=== PATIENT | female | born 1950 | race Caucasian/White ===

== ENCOUNTER 2019-04-09 00:09 | Day surgery (SDC) | payer MEDICARE, MEDICAID, SELFPAY ==
[2019-04-02 13:45] VITALS: BMI 30.4
--- NOTE | 2019-04-07 13:10 | WPDANESEPP ---
Anes - Eval Pre Procedure Procedure: Operation Date: 04/09/19 07:30 Proposed Procedures p Esophagogastroduodenoscopy - Laci Nixon MD Date/Time: 04/07/19 13:10 Surgeon: Chloe Nixon MD Pre Op Diagnosis: Tiffany Patient Data Age: 69 Gender: F Height: 5 ft 3 in Weight: 78 kg Allergies Allergy/AdvReac Type Severity Reaction Status Date / Time estrogens, conjugated Allergy Mild Rash Verified 04/02/19 13:56 [From Prempro] medroxyprogesterone Allergy Mild Rash Verified 04/02/19 13:56 [From Prempro] Home Medications Medication Instructions Recorded Confirmed Type insulin glargine 100 unit/mL (3 See Rx Instructions .ROUTE .COMPLEX 01/15/19 04/02/19 History mL) subcutaneous pen insulin lispro 100 unit/mL See Rx Instructions SUB-Q .COMPLEX 01/15/19 04/02/19 History subcutaneous pen bethanechol chloride 25 mg tablet 25 mg PO BID tablet 01/24/19 04/02/19 History lisinopril 20 mg tablet 20 mg PO DAILY 01/24/19 04/02/19 History mirtazapine 15 mg tablet 15 mg PO DAILY 01/24/19 04/02/19 History omeprazole 40 mg capsule,delayed 40 mg PO BID 01/24/19 04/02/19 History release pravastatin 20 mg tablet 20 mg PO DAILY 01/24/19 04/02/19 History ergocalciferol (vitamin D2) 2,500 2,500 unit PO DAILY 02/01/19 04/02/19 History unit capsule levothyroxine 88 mcg tablet 88 mcg PO DAILY 02/01/19 04/02/19 History alprazolam 0.5 mg tablet 0.5 mg PO DAILY PRN #30 tablet 03/28/19 04/02/19 Rx EC11/14/18 SR RBBB, rate 81 : patient denies Patient hx anesthesia problems: none Family hx anesthesia problems: none Prior Surgeries: cholecystectomy PMFSH Past Medical History Medical History (Updated 04/07/19 @ 13:12 by Fanta Chavira CRNA) Anxiety Chronic GERD CVA (cerebral vascular accident) Depression Diabetes 1.5, managed as type 1 Diabetic neuropathy Hyperlipidemia Hypertension Hypothyroid Macular degeneration Obesity (BMI 30-39.9) Surgical History Surgical History (Updated 04/07/19 @ 13:05 by Fanta Chavira CRNA) Hx of cholecystectomy Social History Social History Smoking status: Never smoker Second hand tobacco smoke exposure: No Alcohol intake: never Substance use: never Exam Day of Procedure 04/07/19 13:10
[2019-04-09 06:41] VITALS: BP 132/60; PULSE 83; RESP 18; TEMP 37.2; O2SAT 99
--- NOTE | 2019-04-09 06:51 | WPDANESEFPP ---
Anes - Eval Final PreProcedure Day of Procedure 04/09/19 06:51 Patient weight: obese Heart: regular rate and rhythm Lungs: clear to auscultation Airway: Mallampati scale class II Neurological: alert and oriented ASA classification: III Emergent: no Anesthetic plan: proceed Anesthesia type and monitoring: general GIVS and standard monitoring Informed Consent: The patient's anesthetic plan and its attendant risks and benefits were discussed with the patient/family/POA. Questions were solicited and answers provided to the satisfaction of the patient/family/POA.
[2019-04-09] MEDS: LACTATED RINGERS 1,000 ML 150 ML IV CONT (06:52)
[2019-04-09 06:56] LABS: Glucose Point of Care 235 (65-105)
--- NOTE | 2019-04-09 06:57 | PM.HPGS ---
History of Present Illness History of Present Illness Consent: Risks, benefits, and alternatives have been discussed and questions answered. Patient agrees to proceed with procedure. Chief complaint: Tiffany Narrative: Kyle Sanches is a 69 year old female with chronic acid reflux. Her last EGD 2 years ago she had persistent erosions in the lower esophagus. She states that after meal she feels full and bloated as though her food is not digesting. Denies dysphagia or weight loss. [facility] Past Medical History Medical History (Updated 04/09/19 @ 07:05 by Laci Nixon MD) Anxiety Chronic GERD CVA (cerebral vascular accident) Depression Diabetes 1.5, managed as type 1 Diabetic neuropathy Hyperlipidemia Hypertension Hypothyroid Macular degeneration Obesity (BMI 30-39.9) Surgical History Surgical History Hx of cholecystectomy Family History Family History Father Family history of elevated blood lipids Hypertension Family history of malignant neoplasm of kidney Family history of lung cancer Mother Family history of elevated blood lipids Sibling Family history of elevated blood lipids Family history of thyroid disease Hypertension Family history of diabetes mellitus in first degree relative Social History Social History Smoking status: Never smoker Second hand tobacco smoke exposure: No Alcohol intake: never Substance use: never Meds Home Medications and Allergies Home Medications Medication Instructions Recorded Confirmed Type insulin glargine 100 unit/mL (3 See Rx Instructions .ROUTE .COMPLEX 01/15/19 04/02/19 History mL) subcutaneous pen insulin lispro 100 unit/mL See Rx Instructions SUB-Q .COMPLEX 01/15/19 04/02/19 History subcutaneous pen bethanechol chloride 25 mg tablet 25 mg PO BID tablet 01/24/19 04/02/19 History lisinopril 20 mg tablet 20 mg PO DAILY 01/24/19 04/02/19 History mirtazapine 15 mg tablet 15 mg PO DAILY 01/24/19 04/02/19 History omeprazole 40 mg capsule,delayed 40 mg PO BID 01/24/19 04/02/19 History release pravastatin 20 mg tablet 20 mg PO DAILY 01/24/19 04/02/19 History ergocalciferol (vitamin D2) 2,500 2,500 unit PO DAILY 02/01/19 04/02/19 History unit capsule levothyroxine 88 mcg tablet 88 mcg PO DAILY 02/01/19 04/02/19 History alprazolam 0.5 mg tablet 0.5 mg PO DAILY PRN #30 tablet 03/28/19 04/09/19 Rx Allergies Allergy/AdvReac Type Severity Reaction Status Date / Time estrogens, conjugated Allergy Mild Rash Verified 04/02/19 13:56 [From Prempro] medroxyprogesterone Allergy Mild Rash Verified 04/02/19 13:56 [From Prempro] Vital Signs Vital Signs - 24 hr 04/09/19 06:41 Temperature 37.2 C Pulse Rate 83 Respiratory Rate 18 Blood Pressure 132/60 Pulse Oximetry 99 Exam Const: General: alert Orientation/consciousness: patient oriented x3 Resp: Auscultation: clear to auscultation bilaterally Cardio: Rhythm: regular rhythm GI: GI Palp: Yes Soft to palpation and No Tenderness to palpation present (GI) Neuro: General: patient oriented x3 Assessment and Plan Assessment and plan (1) GERD (gastroesophageal reflux disease): Code(s): K21.9 - Gastro-esophageal reflux disease without esophagitis Status: Acute Assessment and Plan: EGD with possible biopsy or dilatation or cautery.
[2019-04-09 07:37] VITALS: BP 117/64; PULSE 86; RESP 24; O2SAT 98
[2019-04-09 07:45] LABS: Glucose Point of Care 210 (65-105)
[2019-04-09 07:47] VITALS: BP 123/65; PULSE 77; RESP 22; O2SAT 97
[2019-04-09 07:57] VITALS: BP 134/79; PULSE 73; RESP 21; O2SAT 99
== END 2019-04-09 08:25 | disposition home or self-care (01) ==
PROVIDERS: PCP Internal Medicine; Visit Provider Internal Medicine Gastroenterology
PROC: 0DJ08ZZ Inspection of Upper Intestinal Tract, Via Natural or Artificial Opening Endoscopic (ICD-10-PCS; CPT 43235; principal; 2019-04-09 07:30)
DX: K21.9 Gastro-esophageal reflux disease without esophagitis (principal); K31.84 Gastroparesis; I10 Essential (primary) hypertension; E78.5 Hyperlipidemia, unspecified; E13.40 Other specified diabetes mellitus with diabetic neuropathy, unspecified; E03.9 Hypothyroidism, unspecified; F41.8 Other specified anxiety disorders; H35.30 Unspecified macular degeneration; Z86.73 Personal history of transient ischemic attack (TIA), and cerebral infarction without residual deficits; Z79.4 Long term (current) use of insulin; E66.9 Obesity, unspecified; Z68.30 Body mass index [BMI] 30.0-30.9, adult
CPT/HCPCS: 43235; J2704; J7120

== ENCOUNTER 2019-10-16 07:31 | Outpatient (CLI) | payer MEDICARE, MEDICAID, SELFPAY ==
[2019-10-16 08:11] LABS: Hematocrit 39.8 % (37.0-47.0); Hemoglobin 13.2 g/dL (12.0-15.0); Mean Corpuscular HGB Conc 33.2 g/dl (32-36); Mean Corpuscular Hemoglobin 29.7 pg (26-34); Mean Corpuscular Volume 89.4 fl (80-100); Mean Platelet Volume 10.4 fl (7.4-10.4); Platelet Count Result 250 k/mm3 (150-375); Red Blood Count 4.45 M/mm3 (4.2-5.4); Red Cell Distribution Width 12.9 % (11.5-14.5); White Blood Count 4.8 K/mm3 (4.5-10.0)
[2019-10-16 08:26] LABS: Alanine Aminotransferase 32 U/L (4-35); Albumin Level 4.1 g/dL (3.5-5.1); Alkaline Phosphatase 87 U/L (38-126); Anion Gap 6 mmol/L (8-16); Aspartate Amino Transferase 34 U/L (14-36); Bilirubin,Total 0.4 mg/dL (0.2-1.3); Blood Urea Nitrogen 16 mg/dL (7-17); Calcium 9.1 mg/dL (8.4-10.2); Carbon Dioxide 30 mmol/L (22-30); Chloride 97 mmol/L (98-107); Cholesterol 234 mg/dL (0-200); Estimated Glomerular Filt Rate > 60; Glucose 241 mg/dL (65-105); Potassium 4.3 mmol/L (3.4-5.0); Sodium 133 mmol/L (137-145); Triglycerides 57 mg/dL (<150)
[2019-10-16 08:33] LABS: HDL Direct > 110 mg/dL
[2019-10-16 08:38] LABS: LDL Cholesterol Direct 89 mg/dL
[2019-10-16 08:56] LABS: Vitamin D 25 Hydroxy 31.3 ng/mL
== END 2019-10-16 07:32 | disposition home or self-care (01) ==
PROVIDERS: PCP Physician Assistant; Referring Provider Physician Assistant; Visit Provider Internal Medicine Endocrinology, Diabetes & Metabolism
DX: E03.9 Hypothyroidism, unspecified (principal); E10.9 Type 1 diabetes mellitus without complications; M81.0 Age-related osteoporosis without current pathological fracture; E04.9 Nontoxic goiter, unspecified; R53.83 Other fatigue
CPT/HCPCS: 36415; 80053; 80061; 82306; 84439; 84443; 84481; 85027

== ENCOUNTER 2020-03-06 16:20 | Outpatient (CLI) | payer MEDICARE, MEDICAID, SELFPAY ==
--- NOTE | ~2020-03-06 | MM_ITS ---
EXAMINATION: MM screening chiara BI w hiram HISTORY: Screening mammogram TECHNIQUE: Craniocaudal and mediolateral oblique 3-D tomosynthesis images were obtained and synthetic 2-D images were generated. CAD analysis was submitted and interpreted. COMPARISON: 08/09/2018 bilateral digital screening mammogram 09/13/2016 and 02/27/2016 diagnostic left digital mammogram and limited left breast ultrasound examina tions 02/18/2016, 02/13/2015 bilateral digital screening mammogram examinations BREAST PARENCHYMAL COMPOSITION: There are scattered areas of fibroglandular density. FINDINGS: Occasional benign calcifications. There is no evidence of suspicious mass, calcification, o r architectural distortion to suggest malignancy in either breast. There has been no suspicious inter ora change. IMPRESSION: 1. No mammographic evidence of malignancy. 2. Recommend routine screening mammography in one year. BI-RADS Category 2: Benign finding(s). Reviewed, dictated and finalized at location B. [facility] [employer]
== END 2020-03-06 16:21 | disposition home or self-care (01) ==
PROVIDERS: PCP Internal Medicine; Visit Provider Obstetrics & Gynecology
DX: Z12.31 Encounter for screening mammogram for malignant neoplasm of breast (principal)
CPT/HCPCS: 77063; 77067

== ENCOUNTER 2020-03-19 11:14 | Outpatient (CLI) | payer MEDICARE, MEDICAID, SELFPAY ==
[2020-03-19 11:59] LABS: Anion Gap 0 mmol/L (8-16); Blood Urea Nitrogen 17 mg/dL (7-17); Calcium 9.3 mg/dL (8.4-10.2); Carbon Dioxide 33 mmol/L (22-30); Chloride 101 mmol/L (98-107); Estimated Glomerular Filt Rate > 60; Glucose 139 mg/dL (65-105); Potassium 4.4 mmol/L (3.4-5.0); Sodium 134 mmol/L (137-145)
[2020-03-19 12:22] LABS: Creatinine Urine 171.5 mg/dL
[2020-03-19 12:27] LABS: MALB Creatinine Ratio 5.3 mg/g (0-30); Microalbumin Urine Random 9.1 mg/L (0-16.7)
[2020-03-19 12:30] LABS: Total Triiodothyronine (T3) 0.68 NG/ML (0.97-1.69)
[2020-03-19 12:39] LABS: Free T4 Free Thyroxine 1.04 ng/mL (0.78-2.19); Vitamin D 25 Hydroxy 33.7 ng/mL
== END 2020-03-19 11:15 | disposition home or self-care (01) ==
LOC: ANHLAB 11:16
PROVIDERS: Family Provider Internal Medicine; PCP Internal Medicine; Visit Provider Internal Medicine Endocrinology, Diabetes & Metabolism
DX: E10.65 Type 1 diabetes mellitus with hyperglycemia (principal); E10.649 Type 1 diabetes mellitus with hypoglycemia without coma; M81.0 Age-related osteoporosis without current pathological fracture; E03.9 Hypothyroidism, unspecified
CPT/HCPCS: 36415; 80048; 82043; 82306; 84439; 84443; 84480

== ENCOUNTER 2020-04-21 11:11 | Outpatient (CLI) | payer MEDICARE, MEDICAID, SELFPAY ==
[2020-04-21 12:22] LABS: Free T4 Free Thyroxine 1.31 ng/mL (0.78-2.19)
== END 2020-04-21 11:12 | disposition home or self-care (01) ==
PROVIDERS: PCP Internal Medicine; Visit Provider Internal Medicine Endocrinology, Diabetes & Metabolism
DX: E03.9 Hypothyroidism, unspecified (principal)
CPT/HCPCS: 36415; 84439; 84443

== ENCOUNTER 2020-04-25 12:16 | Outpatient (CLI) | payer MEDICARE, MEDICAID, SELFPAY | END 2020-04-25 12:17 | disposition home or self-care (01) | PROVIDERS: PCP Internal Medicine; Visit Provider Physician Assistant | DX: R35.0 Frequency of micturition (principal) | CPT/HCPCS: 87086 ==

== ENCOUNTER 2020-05-08 08:11 | Outpatient (CLI) | payer MEDICARE, MEDICAID, SELFPAY ==
--- NOTE | ~2020-05-08 | XR_ITS ---
EXAMINATION: XR barium swallow modified DATE: 05/08/2020 09:09 INDICATION: Dysphagia, unspecified TECHNIQUE: Modified barium esophagram was performed by myself to administered fluoroscopy, in conjun ction with speech pathologist who administered barium in varying consistencies as per speech patholog ist documentation. This was recorded on tape. A single fluoroscopic spot image was recorded. The DAP for this procedure was 2.314 Gycm2. Fluoroscopy exposure time was 2.8 minutes. FINDINGS: Oral stage: Adequate function. Pharyngeal phase: Adequate function. Laryngeal penetration: None. Aspiration: None. Laryngeal sensitivity: Present. IMPRESSION: Normal modified esophagram. Please refer to speech pathologist findings and specific feed ing recommendations. Reviewed, dictated and finalized at location A. [employer] IMPRESSION: Normal modified esophagram. Please refer to speech pathologist find ings and specific feeding recommendations.
--- NOTE | 2020-05-08 16:34 | STOPEVAL ---
MODIFIED BARIUM SWALLOW EVALUATION: Thank you for referring Kyle Sanches to [facility].? Attending Provider: Mikey Ames PA-C/Dr Layton fax # [phone] Referring Provider: * Outpatient Evaluation Outpatient Past Medical History Neurological History Hx Cerebrovascular Accident (CVA) Yes Cardiovascular History Hx Hypercholesterolemia Yes Hx Hypertension Yes Respiratory History Hx Respiratory Disorders No Significant History Gastrointestinal History Hx Cholecystectomy Yes Hx Gastroesophageal Reflux Disease Yes Genitourinary History Hx Other Genitourinary Disorders Yes: frequency Musculoskeletal History Hx Orthopedic Surgery Yes Hematological History Hx Hematological Disorders No Significant History Endocrine History Hx Diabetes Yes Hx Hypothyroidism Yes HEENT History Hx Macular Degeneration Yes Integumentary History Hx Skin Disorders No Significant History Reproductive History Hx Post Menopausal Yes Psychosocial History Hx Anxiety Yes Hx Depression Yes Pain History History of Any Previous or Ongoing No Significant History Instance of Pain Anesthesia History Hx Anesthesia Reactions No Significant History Prior Level of Function Prior Swallow Level Prior Intake Method Oral Prior Diet Regular (Level 7 Diet) Prior Liquid Consistency Thin (Level 0 Diet) Prior Cognition/Communication Prior Communication Level No Impairment Prior Cognitive Function Able to Function Independently Pain Assessment Timing of Pain Assessment Timing of Pain Assessment Assessment Self Report Self Report Pain Level 0 Pain Score Pain Score 0: Self Report Modified Barium Swallow Evaluation Recent Swallowing History Reports Dysphagia Yes: difficulty with pills; & food build up in mouth History of Dysphagia No Other Related History reports having had 4 TIA's, last one was approximately 3 years ago History of Pneumonia No Reported Difficult Consistencies Pills,Solids Intake Method Prior to Swallow Oral Evaluation Diet Prior to Swallow Evaluation Regular, Level 7 Liquid Consistency Prior to Swallow Thin (0) Evaluation Dentition Comments reports having periodontal disease; missing teeth Consistency Barium Pill Uncontrolled 2 Other Amount whole pill taken from a cup Oral Preparatory Symptoms Within Functional Limits Oral Phase Symptoms Within Functional Limits Pharyngeal Phase Symptoms Within Functional Limits Severity of Vallecular Residue None - 0% No Residue Severity of Pyriform Sinus Re
== END 2020-05-08 08:12 | disposition home or self-care (01) ==
LOC: ANHIMG 08:16
PROVIDERS: PCP Internal Medicine; Visit Provider Physician Assistant
DX: R13.10 Dysphagia, unspecified (principal)
CPT/HCPCS: 92611

== ENCOUNTER 2020-06-10 10:13 | Outpatient (CLI) | payer MEDICARE, SELFPAY ==
[2020-06-10 11:34] LABS: Free T4 Free Thyroxine 1.31 ng/mL (0.78-2.19)
== END 2020-06-10 10:14 | disposition home or self-care (01) ==
PROVIDERS: PCP Physician Assistant; Visit Provider Internal Medicine Endocrinology, Diabetes & Metabolism
DX: E03.9 Hypothyroidism, unspecified (principal)
CPT/HCPCS: 36415; 84439; 84443

== ENCOUNTER → 2020-07-08 01:36 | Outpatient (CLI) | payer MEDICARE, SELFPAY ==
[2020-07-08 18:55] LABS: SARS-CoV-2 RNA PCR Negative
== END ==
PROVIDERS: PCP Physician Assistant; Visit Provider Internal Medicine Gastroenterology
DX: Z01.812 Encounter for preprocedural laboratory examination (principal); Z20.822 Contact with and (suspected) exposure to COVID-19
CPT/HCPCS: C9803; U0003; U0005

== ENCOUNTER 2020-07-11 05:39 | Day surgery (SDC) | payer MEDICARE, MEDICAID, SELFPAY ==
[2020-07-01 13:11] VITALS: BMI 34.3
[2020-07-11 10:52] VITALS: BP 137/68; PULSE 76; RESP 18; TEMP 36.3; O2SAT 96; BMI 34.5
[2020-07-11] MEDS: LACTATED RINGERS 1,000 ML 150 ML IV CONT (10:58)
--- NOTE | 2020-07-11 11:02 | WPDANESEPPF ---
Anes - Initial Pre Proc Eval Procedure: Operation Date: 07/11/20 12:00 Proposed Procedures p Esophagogastroduodenoscopy - Kermit Dean MD Date/Time: 07/11/20 11:02 Surgeon: Kermit Dean MD Pre Op Diagnosis: dysphagia Patient Data Age: 70 Gender: F Height: 5 ft 3 in Weight: 88.5 kg Last Vital Signs Temp 97.3 F L 07/11/20 10:52 Pulse 76 07/11/20 10:52 Resp 18 07/11/20 10:52 BP 137/68 07/11/20 10:52 Pulse Ox 96 07/11/20 10:52 Allergies Allergy/AdvReac Type Severity Reaction Status Date / Time estrogens, conjugated Allergy Mild Rash Verified 07/11/20 10:48 [From Prempro] medroxyprogesterone Allergy Mild Rash Verified 07/11/20 10:48 [From Prempro] Home Medications Medication Instructions Recorded Confirmed Type alprazolam 0.5 mg tablet 0.5 mg PO DAILY PRN #30 tablet 03/28/19 07/01/20 Rx omeprazole 40 mg PO DAILY #1 cap 04/09/19 07/01/20 Rx sertraline 25 mg tablet 25 mg PO DAILY #30 tablet 04/18/19 07/01/20 Rx ibandronate 150 mg tablet 150 mg PO MONTHLY #3 tablet 05/09/19 07/01/20 Rx blood sugar diagnostic #400 each 10/29/19 06/24/20 Rx flash glucose scanning reader #1 each 11/29/19 06/24/20 Rx bethanechol chloride 5 mg tablet 20 mg PO BID tablet 03/19/20 07/01/20 History magnesium 200 mg tablet 200 mg PO DAILY 03/19/20 07/01/20 History metoclopramide HCl 5 mg tablet 5 mg PO DAILY 03/19/20 07/01/20 History polyethylene glycol 3350 17 gram 17 g PO DAILY 03/19/20 07/01/20 History oral powder packet insulin lispro 100 unit/mL 7 unit SUB-Q .COMPLEX 90 Days #30 03/24/20 07/01/20 Rx subcutaneous pen ml cholecalciferol (vitamin D3) 50 50 mcg PO DAILY 06/24/20 07/01/20 History mcg (2,000 unit) capsule insulin degludec 100 unit/mL (3 34 unit SUBCUT DAILY 90 Days #30.6 06/24/20 07/01/20 Rx mL) subcutaneous pen ml levothyroxine 112 mcg tablet 112 mcg PO DAILY 90 Days #90 tablet 06/24/20 07/01/20 Rx lisinopril 20 mg tablet 20 mg PO DAILY #90 tablet 06/24/20 07/01/20 Rx pravastatin 20 mg tablet 20 mg PO DAILY #90 tablet 06/24/20 07/01/20 Rx pregabalin 50 mg capsule 100 mg PO BID 90 Days #360 cap 06/24/20 07/01/20 Rx calcium carbonate 600 mg (1,500 1 tablet PO BID #180 tablet 07/01/20 07/11/20 Rx mg)-vitamin D3 200 unit tablet flash glucose sensor #8 each 07/08/20 Rx Patient hx anesthesia problems: none Family hx anesthesia problems: none PMFSH Past Medical History Medical History (Updated 06/19/20 @ 14:54 by Kermit Dean MD) Anxiety Chronic GERD CVA (cerebral vascular accident) Depression Diabetes 1.5, managed as type 1 Diabetic neuropathy Hyperlipidemia Hypertension Hypothyroid Macular degeneration Obesity (BMI 30-39.9) Surgical History Surgical History Hx of cholecystectomy Family History Family History Father Family history of elevated blood lipids Hypertension Family history of malignant neoplasm of kidney Family history of lung cancer Mother Family history of elevated blood lipids Sibling Family history of elevated blood lipids Family history of thyroid disease Hypertension Family history of diabetes mellitus in first degree relative Social History Social History Smoking status: Never smoker Second hand tobacco smoke exposure: No Alcohol intake: never Substance use: never Living arrangements: assisted living Spiritual care concerns: No Anes - Eval Final PreProcedure Day of Procedure 07/11/20 11:02 Patient weight: obese Heart: regular rate and rhythm Lungs: clear to auscultation Airway: Mallampati scale class II Neurological: alert and oriented Last oral intake: >/= 8 hours ASA classification: III Emergent: no Anesthetic plan: proceed Anesthesia type and monitoring: general GIVS and standard monitori
[2020-07-11 11:08] LABS: Glucose Point of Care 61 (65-105)
--- NOTE | 2020-07-11 11:46 | WPDHPUPDATE1 ---
History and Physical Update Update Date/Time: 07/11/20 11:46 History and Physical has been reviewed, including an updated exam of the patient. There are NO changes in the patient's condition. Risks, benefits, and alternatives have been discussed and questions answered. Patient agrees to proceed with procedure.
[2020-07-11 12:10] VITALS: BP 105/60; PULSE 66; RESP 10; O2SAT 93
[2020-07-11 12:20] VITALS: BP 116/65; PULSE 70; RESP 25; O2SAT 93
[2020-07-11 12:30] VITALS: BP 131/61; PULSE 77; RESP 25; O2SAT 94
--- NOTE | 2020-07-11 13:13 | SUR.PHASEII ---
Patient blood sugar 44 on arrival to PACU. Patient given 1/[address] Herrera and apple juice. Rechecked at 50. Package of josé miguel crackers and diet soda given. Rechecked at 50. Patient used own Liv[employer] sensor to check sugars and registered at 85 and asymptomatic. Per pam Palma to discharge patient. Patient instructed to check her blood sugars frequently for the remainder of the day. Patient expressed understanding.
[2020-07-11 13:17] LABS: Glucose Point of Care 44 (65-105)
[2020-07-11 13:17] LABS: Glucose Point of Care 52 (65-105)
[2020-07-11 13:18] LABS: Glucose Point of Care 50 (65-105)
== END 2020-07-11 13:16 | disposition home or self-care (01) ==
PROVIDERS: PCP Physician Assistant; Visit Provider Internal Medicine Gastroenterology
PROC: 0DJ08ZZ Inspection of Upper Intestinal Tract, Via Natural or Artificial Opening Endoscopic (ICD-10-PCS; CPT 43235; principal; 2020-07-11 12:00)
DX: K21.00 Gastro-esophageal reflux disease with esophagitis, without bleeding (principal); K22.10 Ulcer of esophagus without bleeding; K29.50 Unspecified chronic gastritis without bleeding; K44.9 Diaphragmatic hernia without obstruction or gangrene; I10 Essential (primary) hypertension; E10.40 Type 1 diabetes mellitus with diabetic neuropathy, unspecified; E78.5 Hyperlipidemia, unspecified; E66.9 Obesity, unspecified; E03.9 Hypothyroidism, unspecified; R13.10 Dysphagia, unspecified; H35.30 Unspecified macular degeneration; F32.9 Major depressive disorder, single episode, unspecified; F41.9 Anxiety disorder, unspecified; Z86.73 Personal history of transient ischemic attack (TIA), and cerebral infarction without residual deficits; Z90.49 Acquired absence of other specified parts of digestive tract
CPT/HCPCS: 43239; 82948; 87081; 88305; C9803; J2001; J2704; J7120; U0003; U0005

== ENCOUNTER 2020-08-13 08:48 | Outpatient (CLI) | payer MEDICARE, MEDICAID, SELFPAY | END 2020-08-13 08:49 | disposition home or self-care (01) | LOC: ANHLAB 08:51 | PROVIDERS: PCP Physician Assistant; Visit Provider Internal Medicine Endocrinology, Diabetes & Metabolism | DX: E03.9 Hypothyroidism, unspecified (principal) | CPT/HCPCS: 36415; 84439; 84443 ==

== ENCOUNTER 2020-10-13 01:26 | Day surgery (SDC) | payer MEDICARE, MEDICAID, SELFPAY ==
[2020-10-02 09:24] VITALS: BMI 37.8
[2020-10-13 06:22] VITALS: BP 176/84; PULSE 80; RESP 18; TEMP 35.9; O2SAT 95; BMI 38.0
[2020-10-13] MEDS: LACTATED RINGERS 1,000 ML 150 ML IV CONT (06:33)
[2020-10-13 06:35] LABS: Glucose Point of Care 220 mg/dl (65-105)
--- NOTE | 2020-10-13 06:48 | WPDANESEPPF ---
Anes - Initial Pre Proc Eval Procedure: Operation Date: 10/13/20 07:30 Proposed Procedures p Esophagogastroduodenoscopy - Kermit Dean MD Date/Time: 10/13/20 06:48 Surgeon: Kermit Dean MD Pre Op Diagnosis: epistasis Patient Data Age: 70 Gender: F Height: 1.6 m Weight: 97.5 kg Last Vital Signs Temp 35.9 C L 10/13/20 06:22 Pulse 80 10/13/20 06:22 Resp 18 10/13/20 06:22 BP 176/84 H 10/13/20 06:22 Pulse Ox 95 10/13/20 06:22 Allergies Allergy/AdvReac Type Severity Reaction Status Date / Time estrogens, conjugated Allergy Mild Rash Verified 10/13/20 06:20 [From Prempro] medroxyprogesterone Allergy Mild Rash Verified 10/13/20 06:20 [From Prempro] Home Medications Medication Instructions Recorded Confirmed Type alprazolam 0.5 mg tablet 0.5 mg PO DAILY PRN #30 tablet 03/28/19 10/02/20 Rx sertraline 25 mg tablet 25 mg PO DAILY #30 tablet 04/18/19 10/02/20 Rx blood sugar diagnostic #400 each 10/29/19 09/30/20 Rx flash glucose scanning reader #1 each 11/29/19 09/30/20 Rx metoclopramide HCl 5 mg tablet 5 mg PO DAILY 03/19/20 10/02/20 History polyethylene glycol 3350 17 gram 17 g PO TID 03/19/20 10/02/20 History oral powder packet cholecalciferol (vitamin D3) 50 50 mcg PO DAILY 06/24/20 10/02/20 History mcg (2,000 unit) capsule lisinopril 20 mg tablet 20 mg PO DAILY #90 tablet 06/24/20 10/02/20 Rx calcium carbonate 600 mg (1,500 1 tablet PO BID #180 tablet 07/01/20 10/02/20 Rx mg)-vitamin D3 200 unit tablet omeprazole 40 mg capsule,delayed 40 mg PO BID 30 Days #60 cap 08/07/20 10/02/20 Rx release bethanechol chloride 25 mg tablet 25 mg PO BID #60 tablet 08/20/20 10/02/20 Rx magnesium oxide 400 mg (241.3 mg 400 mg PO DAILY #30 tablet 08/20/20 10/02/20 Rx magnesium) tablet flash glucose sensor #8 each 09/30/20 09/30/20 Rx insulin lispro 100 unit/mL 7 unit SUB-Q .COMPLEX 90 Days #30 09/30/20 10/02/20 Rx subcutaneous pen ml levothyroxine 125 mcg tablet 125 mcg PO DAILY 90 Days #90 tablet 09/30/20 10/02/20 Rx pravastatin 20 mg tablet 20 mg PO DAILY #90 tablet 09/30/20 10/02/20 Rx insulin glargine 100 unit/mL (3 30 unit SUBCUT QAM 90 Days #30 ml 10/01/20 10/02/20 Rx mL) subcutaneous pen MDD 30 pregabalin 100 mg capsule See Rx Instructions PO TID 90 Days 10/06/20 Rx #270 cap Laboratory Tests 10/13/20 06:27 POC Capillary Glucose 220 mg/dl H mg/dl (65-105) Patient hx anesthesia problems: none Family hx anesthesia problems: none PMFSH Past Medical History Medical History Anxiety Chronic GERD CVA (cerebral vascular accident) Depression Diabetes 1.5, managed as type 1 Diabetic neuropathy Erosive esophagitis Hiatal hernia Hyperlipidemia Hypertension Hypothyroid Macular degeneration Obesity (BMI 30-39.9) Surgical History Surgical History Hx of cholecystectomy Family History Family History Father Family history of elevated blood lipids Hypertension Family history of malignant neoplasm of kidney Family history of lung cancer Mother Family history of elevated blood lipids Sibling Family history of elevated blood lipids Family history of thyroid disease Hypertension Family history of diabetes mellitus in first degree relative Social History Social History Smoking status: Never smoker Second hand tobacco smoke exposure: No Alcohol intake: never Substance use: never Substance use type: does not use Living arrangements: assisted living Spiritual care concerns: No Anes - Eval Final PreProcedure Day of Procedure 10/13/20 06:48 Patient weight: obese Heart: regular rate and rhythm Lungs: clear to auscultation Airway: Mallampati scale class II Neurological: alert and oriente
--- NOTE | 2020-10-13 07:26 | PM.HPGS ---
History of Present Illness History of Present Illness Consent: Risks, benefits, and alternatives have been discussed and questions answered. Patient agrees to proceed with procedure. Chief complaint: epistasis Narrative: Kyle Sanches is a 70 year old female with erosive esophagitis and hiatal hernia, here for egd to assess healing Review of Systems Constitutional: Constitutional: Denies headache(s) and Denies weakness Eyes: Eyes: Denies blurry vision ENT: Reports Normal hearing present, Denies headache(s) and Denies neck pain Cardiovascular: Cardiovascular: Denies chest pain and Denies dyspnea Respiratory: Respiratory: Denies dyspnea Gastrointestinal: Gastrointestinal: Reports no additional gastrointestinal complaints Genitourinary: Genitourinary: Denies dysuria Musculoskeletal: Musculoskeletal: Denies neck pain Integumentary/Breasts: Skin/Breast: Denies dry skin Neurologic: Reports Normal hearing present, Denies headache(s) and Denies weakness Psychiatric: Psychiatric: Denies anxiety Endocrine: Endocrine: Denies change in body appearance Hematologic/Lymphatic: Hematologic/Lymphatic: Denies easy bleeding Allergic/Immunologic: Allergic/Immunologic: Denies urticaria PMFSH Past Medical History Medical History Anxiety Chronic GERD CVA (cerebral vascular accident) Depression Diabetes 1.5, managed as type 1 Diabetic neuropathy Erosive esophagitis Hiatal hernia Hyperlipidemia Hypertension Hypothyroid Macular degeneration Obesity (BMI 30-39.9) Surgical History Surgical History Hx of cholecystectomy Family History Family History Father Family history of elevated blood lipids Hypertension Family history of malignant neoplasm of kidney Family history of lung cancer Mother Family history of elevated blood lipids Sibling Family history of elevated blood lipids Family history of thyroid disease Hypertension Family history of diabetes mellitus in first degree relative Social History Social History Smoking status: Never smoker Second hand tobacco smoke exposure: No Alcohol intake: never Substance use: never Substance use type: does not use Living arrangements: assisted living Spiritual care concerns: No Meds Home Medications and Allergies Home Medications Medication Instructions Recorded Confirmed Type alprazolam 0.5 mg tablet 0.5 mg PO DAILY PRN #30 tablet 03/28/19 10/02/20 Rx sertraline 25 mg tablet 25 mg PO DAILY #30 tablet 04/18/19 10/02/20 Rx blood sugar diagnostic #400 each 10/29/19 09/30/20 Rx flash glucose scanning reader #1 each 11/29/19 09/30/20 Rx metoclopramide HCl 5 mg tablet 5 mg PO DAILY 03/19/20 10/02/20 History polyethylene glycol 3350 17 gram 17 g PO TID 03/19/20 10/02/20 History oral powder packet cholecalciferol (vitamin D3) 50 50 mcg PO DAILY 06/24/20 10/02/20 History mcg (2,000 unit) capsule lisinopril 20 mg tablet 20 mg PO DAILY #90 tablet 06/24/20 10/02/20 Rx calcium carbonate 600 mg (1,500 1 tablet PO BID #180 tablet 07/01/20 10/02/20 Rx mg)-vitamin D3 200 unit tablet omeprazole 40 mg capsule,delayed 40 mg PO BID 30 Days #60 cap 08/07/20 10/02/20 Rx release bethanechol chloride 25 mg tablet 25 mg PO BID #60 tablet 08/20/20 10/02/20 Rx magnesium oxide 400 mg (241.3 mg 400 mg PO DAILY #30 tablet 08/20/20 10/02/20 Rx magnesium) tablet flash glucose sensor #8 each 09/30/20 09/30/20 Rx insulin lispro 100 unit/mL 7 unit SUB-Q .COMPLEX 90 Days #30 09/30/20 10/02/20 Rx subcutaneous pen ml levothyroxine 125 mcg tablet 125 mcg PO DAILY 90 Days #90 tablet 09/30/20 10/02/20 Rx pravastatin 20 mg tablet 20 mg PO DAILY #90 tablet 09/30/20 10/02/20 Rx insulin glargine 100 unit/mL (3 30 unit SUBCUT QAM 90 Days #30 ml 10/01/20 10/02/20
[2020-10-13 07:46] VITALS: BP 113/60; PULSE 72; RESP 13; O2SAT 95
[2020-10-13 07:56] VITALS: BP 127/78; PULSE 77; RESP 13; O2SAT 95
[2020-10-13 08:06] VITALS: BP 143/68; PULSE 77; RESP 13; O2SAT 95
== END 2020-10-13 08:10 | disposition home or self-care (01) ==
PROVIDERS: PCP Physician Assistant; Visit Provider Internal Medicine Gastroenterology
PROC: 0DJ08ZZ Inspection of Upper Intestinal Tract, Via Natural or Artificial Opening Endoscopic (ICD-10-PCS; CPT 43235; principal; 2020-10-13 07:30)
DX: K21.00 Gastro-esophageal reflux disease with esophagitis, without bleeding (principal); K44.9 Diaphragmatic hernia without obstruction or gangrene; K29.50 Unspecified chronic gastritis without bleeding; F41.8 Other specified anxiety disorders; E13.8 Other specified diabetes mellitus with unspecified complications; E78.5 Hyperlipidemia, unspecified; I10 Essential (primary) hypertension; E03.9 Hypothyroidism, unspecified; Z79.4 Long term (current) use of insulin
CPT/HCPCS: 43239; 82948; 88305; J2704; J7120

== ENCOUNTER 2020-12-03 07:04 | Outpatient (CLI) | payer MEDICARE, MEDICAID, SELFPAY ==
[2020-12-03 07:33] LABS: Hematocrit 37.6 % (37.0-47.0); Hemoglobin 11.7 g/dL (12.0-15.0); Mean Corpuscular HGB Conc 31.1 g/dl (32-36); Mean Corpuscular Hemoglobin 26.1 pg (26-34); Mean Corpuscular Volume 83.9 fl (80-100); Mean Platelet Volume 11.2 fl (7.4-10.4); Platelet Count Result 212 k/mm3 (150-375); Red Blood Count 4.48 M/mm3 (4.2-5.4); Red Cell Distribution Width 14.3 % (11.5-14.5)
[2020-12-03 07:43] LABS: Alanine Aminotransferase 22 U/L (4-35); Albumin Level 4.2 g/dL (3.5-5.1); Alkaline Phosphatase 108 U/L (38-126); Anion Gap 4 mmol/L (8-16); Aspartate Amino Transferase 31 U/L (14-36); Bilirubin,Total 0.5 mg/dL (0.2-1.3); Blood Urea Nitrogen 16 mg/dL (7-17); Calcium 9.1 mg/dL (8.4-10.2); Carbon Dioxide 31 mmol/L (22-30); Chloride 103 mmol/L (98-107); Cholesterol 190 mg/dL (0-200); Estimated Glomerular Filt Rate > 60; Glucose 223 mg/dL (65-110); HDL Direct 94 mg/dL; Potassium 4.3 mmol/L (3.4-5.0); Sodium 138 mmol/L (137-145); Triglycerides 70 mg/dL (<150)
[2020-12-03 07:54] LABS: LDL Cholesterol Direct 63 mg/dL
[2020-12-03 08:03] LABS: Free T4 Free Thyroxine 1.68 ng/mL (0.78-2.19)
[2020-12-03 08:48] LABS: Folic Acid 15.4 ng/mL (2.76->20)
== END 2020-12-03 07:05 | disposition home or self-care (01) ==
PROVIDERS: PCP Physician Assistant; Visit Provider Physician Assistant
DX: E10.65 Type 1 diabetes mellitus with hyperglycemia (principal); E03.9 Hypothyroidism, unspecified; R53.83 Other fatigue
CPT/HCPCS: 36415; 80053; 80061; 82607; 82746; 84439; 84443; 85027

== ENCOUNTER 2020-12-19 10:03 | Outpatient (CLI) | payer MEDICARE, MEDICAID, SELFPAY ==
[2020-12-19 13:12] LABS: Add Urine Microscopic? YES; Appearance Urine Clear (Clear); Bacteria Urine Trace /hpf; Bilirubin Urine Negative (Negative); Blood Urine Negative (Negative); Color Urine Yellow (Yellow); Glucose Urine UA 3+ mg/dL (Negative); Ketones Urine Trace mg/dL (Negative); Leukocyte Esterase Ur Negative LEU/UL (Negative); Nitrate Urine Negative (Negative); Protein Urine Negative (Negative); RBC Urine 0-2 /hpf (0-2); Specific Grav Ur 1.018 (1.001-1.035); Squamous Epithelial Cell Urine Rare /hpf (Few); Urobilinogen Urine Negative mg/dL (<2.0); WBC Urine 0-3 /hpf
== END 2020-12-19 10:04 | disposition home or self-care (01) ==
PROVIDERS: PCP Internal Medicine; Visit Provider Internal Medicine
DX: R35.0 Frequency of micturition (principal)
CPT/HCPCS: 81001

== ENCOUNTER 2021-02-07 20:14 | Observation (INO) | payer MEDICARE, MEDICAID, SELFPAY ==
[2021-02-07] VITALS (21 sets, daily range): BP systolic 77–107; BP diastolic 34–53; PULSE 102–107; RESP 12–25; O2SAT 95–100
--- NOTE | ~2021-02-07 | US_ITS ---
EXAMINATION: US renal BI DATE: 02/08/2021 07:56 INDICATION: Acute kidney injury TECHNIQUE: Multiple grayscale and Doppler ultrasound images of the kidneys were obtained. COMPARISON: None. FINDINGS: The right kidney measures 9.8 x 5.1 x 4.3 cm. The left kidney measures 9.7 x 4.5 x 5.3 cm. The kidneys demonstrate normal parenchymal echogenicity. There is no hydronephrosis. The bladder is d ecompressed by Ogden catheter. IMPRESSION: 1. Normal kidneys without hydronephrosis. Reviewed, dictated and finalized at location A. [facility] [employer]
--- NOTE | ~2021-02-07 | XR_ITS ---
EXAMINATION: XR chest 1V portable INDICATION: Weakness TECHNIQUE: Portable AP chest at 2256 hours COMPARISON: 08/06/2018 FINDINGS: The lungs are free of acute opacities. There is no pleural effusion or pneumothorax. The ca rdiomediastinal silhouette is normal. Surgical clips in the right upper quadrant are likely from prio r cholecystectomy. IMPRESSION: 1. No acute cardiopulmonary abnormality. Reviewed, dictated and finalized at location A. [facility] STORE MANAGER
--- NOTE | 2021-02-07 20:19 | ECG_ITS ---
Measurements Intervals Taylor Rate: 106 P: 68 WY: 159 QRS: 64 QRSD: 177 T: -18 QT: 349 QTc: 465 Interpretive Statements SINUS TACHYCARDIA RIGHT BUNDLE BRANCH BLOCK ST-T WAVE ABNORMALITY IN ANTEROLAT/INF LEADS- CONSIDER ISCHEMIA BASELINE ARTIFACT- II, III, AVF ABNORMAL ECG Electronically Signed On 02-10-2021 14:15:21 [employer] by Son Chow D.O.
--- NOTE | 2021-02-07 20:41 | ED.GENADULT ---
HPI - General Adult General Chief complaint: Recheck/Abnormal Lab/Rx Stated complaint: INCREASED BLOOD SUGARS 540-DIZZINESS Time Seen by Provider: 02/07/21 20:25 History of Present Illness HPI narrative: Patient is a 71-year-old female who presents the emergency department with chief complaint of hyperglycemia. Patient reports that she has been on insulin for many years and this week her primary doctor decided to experiment by switching her from insulin to oral hypoglycemics the patient states that since she switched to oral hypoglycemics she had her blood sugars have been running progressively higher with her continuous glucose monitor measuring around 500 for the last several days. EMS was called and the patient was transported to the emergency department the patient states that she feels kind of weak and rundown reports that she has no nausea no vomiting denies abdominal pain does report that she has had some loose stool but it is a darker color but she takes iron. Related Data Home Medications Medication Instructions Recorded Confirmed metoclopramide HCl 5 mg tablet 5 mg PO DAILY 03/19/20 10/02/20 polyethylene glycol 3350 17 gram 17 g PO TID 03/19/20 10/02/20 oral powder packet cholecalciferol (vitamin D3) 50 50 mcg PO DAILY 06/24/20 10/02/20 mcg (2,000 unit) capsule sertraline 50 mg tablet 50 mg PO DAILY 11/21/20 Allergies Allergy/AdvReac Type Severity Reaction Status Date / Time estrogens, conjugated Allergy Mild Rash Verified 01/29/21 14:21 [From Prempro] medroxyprogesterone Allergy Mild Rash Verified 01/29/21 14:21 [From Prempro] Review of Systems Review of Systems: A 10 system review of systems was completed on the patient and is negative except for what is stated in the HPI. Nursing and ancillary documentation was reviewed. 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 Chronic GERD Depression Diabetic neuropathy Diabetic retinopathy Legally blind secondary to such. Erosive esophagitis With history of esophageal ulcers. Hiatal hernia Hyperlipidemia Hypertension Hypothyroid Macular degeneration Thyroid goiter Type 1 diabetes mellitus Diagnosed in 1993. On oral medication for many years before transitioning to insulin. C-peptide less than 0.1, KHUSHBOO > 50 on labs in March 2016. Vitamin D deficiency Surgical History Surgical History History of bilateral cataract extraction History of cardiac catheterization History of cholecystectomy (2001) History of colonoscopy with polypectomy History of esophageal dilatation (01/2017) For esophageal stricture. History of orthopedic surgery Including surgeries to the right elbow, shoulder, and toe. History of surgical procedure on eye proper using laser For diabetic retinopathy. Family History Family History Father Family history of elevated blood lipids Hypertension Family history of malignant neoplasm of kidney Family history of lung cancer Mother Family history of elevated blood lipids Sibling Family history of elevated blood lipids Family history of thyroid disease Hypertension Family history of diabetes mellitus in first degree relative Social History Social History (Updated 02/07/21 @ 23:33 by Sonya Lo PA-C) Social History: Surrogate decision maker: Marisol Cristina (sister) or Alejandra Saeed (daughter). Code status: Full code. Smoking status: Never smoker Second hand tobacco smoke exposure: No Alcohol intake: never Substance use: never Additional living arrangements comments: Lives in assisted living at [facility]. 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 [place]
[2021-02-07 20:54] LABS: Hematocrit 37.6 % (37.0-47.0); Hemoglobin 11.4 g/dL (12.0-15.0); Mean Corpuscular HGB Conc 30.3 g/dl (32-36); Mean Corpuscular Hemoglobin 27.9 pg (26-34); Mean Corpuscular Volume 91.9 fl (80-100); Mean Platelet Volume 12.1 fl (7.4-10.4); Platelet Count Result 256 k/mm3 (150-375); Red Blood Count 4.09 M/mm3 (4.2-5.4); Red Cell Distribution Width 16.1 % (11.5-14.5); White Blood Count 18.4 K/mm3 (4.5-10.0)
[2021-02-07] MEDS: SODIUM CHLORIDE 0.9% IV 1,000 ML 999 ML IV CONT ×2 (20:54→22:37)
[2021-02-07 21:15] LABS: Alanine Aminotransferase 25 U/L (4-35); Albumin Level 4.2 g/dL (3.5-5.1); Alkaline Phosphatase 100 U/L (38-126); Anion Gap 30 mmol/L (8-16); Aspartate Amino Transferase 37 U/L (14-36); Bilirubin,Total 0.6 mg/dL (0.2-1.3); Blood Urea Nitrogen 44 mg/dL (7-17); Calcium 8.8 mg/dL (8.4-10.2); Carbon Dioxide 7 mmol/L (22-30); Chloride 90 mmol/L (98-107); Estimated CRCL calculation 23 ml/min; Estimated Glomerular Filt Rate 22; Glucose 691 mg/dL (65-110); Magnesium 1.9 mg/dL (1.6-2.3); Phosphorus 10.6 mg/dL (2.5-4.5); Potassium 5.2 mmol/L (3.4-5.0); Sodium 127 mmol/L (137-145)
[2021-02-07] MEDS: INSULIN HUMAN REGULAR (*BKC) 100 UNITS/ML 10 UNITS IV PUSH (21:21)
[2021-02-07 21:26] LABS: Add Urine Microscopic? YES; Appearance Urine Clear (Clear); Bacteria Urine Trace /hpf; Bilirubin Urine Negative (Negative); Blood Urine Negative (Negative); Color Urine Yellow (Yellow); Glucose Urine UA 3+ mg/dL (Negative); Ketones Urine 1+ mg/dL (Negative); Leukocyte Esterase Ur Negative LEU/UL (Negative); Mucus Urine Rare /lpf; Nitrate Urine Negative (Negative); Protein Urine Negative (Negative); RBC Urine 0-2 /hpf (0-2); Specific Grav Ur 1.018 (1.001-1.035); Squamous Epithelial Cell Urine Rare /hpf (Few); Urobilinogen Urine Negative mg/dL (<2.0); WBC Urine 0-3 /hpf
[2021-02-07 21:27] LABS: Glucose Point of Care > 500 mg/dl (65-105)
[2021-02-07 21:30] LABS: Band Neutrophils Percent 7 % (0-6); Lymphocytes Absolute Manual 0.55 K/mm3 (1.1-4.5); Monocytes Absolute Manual 1.65 K/mm3 (0.1-0.90); Monocytes Percent Manual 9 % (3-9); Neutrophils Absolute Manual 16.19 K/mm3 (1.7-7.2); Neutrophils Percent Manual 81 % (46-73); Platelet Estimate Adequate (Adequate); Total Cells Counted 100
[2021-02-07 21:31] LABS: Anisocytosis 2+ (NORMAL)
[2021-02-07 21:59] LABS: Beta-Hydroxybutyrate/Acetoacetate 9.72 mmol/L (0.02-0.27)
[2021-02-07 22:18] LABS: Glucose Point of Care > 500 mg/dl (65-105)
[2021-02-07] MEDS: INSULIN HUMAN REGULAR (*BKC) 100 UNITS in SODIUM CHLORIDE 0.9% IV 99 ML 12.4 UNITS IV CONT (22:43)
--- NOTE | 2021-02-07 22:45 | PM.IMHP ---
H&P: HPI History of Present Illness Date/Time: 02/07/21 22:45 Chief Complaint: Hyperglycemia. Narrative: This is a 71-year-old female with insulin-dependent type 2 diabetes mellitus with history of diabetic ketoacidosis, GERD, hiatal hernia, erosive esophagitis, hypertension, and hypothyroidism who presented to the emergency department earlier today for evaluation of hyperglycemia. She was initially diagnosed with diabetes in 1993 and was on oral hypoglycemics for many years before transitioning to insulin. More recently she was taken off of her insulin for what sounds like several reasons with the most important being that staff at her assisted living facility were unable to administer insulin with meals and she was getting insulin later causing poor glucose control. She also has severe vision loss so it was felt that a pump or doing her own mealtime insulin were not good options. As such her Lantus and Humalog were stopped and she was started on metformin, Farxiga, and glimepiride within the past week or so. The patient tells me that her glucose has been creeping up over the last several days and she also endorses polydipsia and polyuria. Today she was not feeling well at all with generalized malaise, weakness, nausea, and decreased appetite and she was sent to the ER where she was found to be in diabetic ketoacidosis and she is being admitted in this setting. Additionally she has an acute kidney injury with a BUN and creatinine of 44 and 2.20 respectively. She has no complaints at the time of my evaluation and specifically denies fever, chills, sweats, cold and flu symptoms, chest pain, shortness of breath, cough, vomiting, and dysuria. Of note she did have a stool on arrival to the emergency department which was reportedly dark though was disposed of prior to being checked for occult blood. Review of Systems Review of Systems: 12 systems were reviewed with pertinent positives and negatives as per HPI. She is legally blind due to retinopathy macular degeneration but can see things up close though poorly. She has no known sick contacts or exposure to those positive for COVID-19. She has noticed a decrease in her urine output today. She denies issues with urinary retention. Except as document, other systems were reviewed and are negative. 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 Chronic GERD Depression Diabetic neuropathy Diabetic retinopathy Legally blind secondary to such. Erosive esophagitis With history of esophageal ulcers. Hiatal hernia Hyperlipidemia Hypertension Hypothyroid Macular degeneration Thyroid goiter Type 1 diabetes mellitus Diagnosed in 1993. On oral medication for many years before transitioning to insulin. C-peptide less than 0.1, KHUSHBOO > 50 on labs in March 2016. Vitamin D deficiency Surgical History Surgical History History of bilateral cataract extraction History of cardiac catheterization History of cholecystectomy (2001) History of colonoscopy with polypectomy History of esophageal dilatation (01/2017) For esophageal stricture. History of orthopedic surgery Including surgeries to the right elbow, shoulder, and toe. History of surgical procedure on eye proper using laser For diabetic retinopathy. Family History Family History Father Family history of elevated blood lipids Hypertension Family history of malignant neoplasm of kidney Family history of lung cancer Mother Family history of elevated blood lipids Sibling Family history of elevated blood lipids Family history of thyroid disease Hypertension Family history of diabetes mellitus in first degree relative Social History Social History (Updated 02/07/21 @ 23:33
[2021-02-07 23:53] LABS: Glucose Point of Care 432 mg/dl (65-105)
[2021-02-08] VITALS (61 sets, daily range): BP systolic 82–155; BP diastolic 38–106; PULSE 81–107; RESP 11–26; TEMP 36.1–36.6; O2SAT 89–100; BMI 37.7
--- NOTE | 2021-02-08 00:01 | PC.NURSE ---
rn double check lazaro ocasio
[2021-02-08] MEDS: SODIUM CHLORIDE 0.9% IV 1,000 ML 200 ML IV CONT (00:06)
[2021-02-08 00:58] LABS: Glucose Point of Care 369 mg/dl (65-105)
--- NOTE | 2021-02-08 01:04 | PC.NURSE ---
Insulin rate change for titration verified with conveyor line battery chargerDara RICH
[2021-02-08 02:02] LABS: Glucose Point of Care 335 mg/dl (65-105)
[2021-02-08 03:05] LABS: Glucose Point of Care 273 mg/dl (65-105)
[2021-02-08] MEDS: KCL 20 MEQ/D5/0.45% SOD CHL 1,000 ML 150 ML IV CONT (03:59)
[2021-02-08 04:07] LABS: Glucose Point of Care 207 mg/dl (65-105)
[2021-02-08 04:32] LABS: Anion Gap 16 mmol/L (8-16); Blood Urea Nitrogen 49 mg/dL (7-17); Calcium 7.9 mg/dL (8.4-10.2); Carbon Dioxide 14 mmol/L (22-30); Chloride 106 mmol/L (98-107); Estimated CRCL calculation 25 ml/min; Estimated Glomerular Filt Rate 24; Glucose 226 mg/dL (65-110); Lactic Acid Reflex 1.9 mmol/L (0.7-2.1); Magnesium 1.8 mg/dL (1.6-2.3); Phosphorus 3.8 mg/dL (2.5-4.5); Potassium 3.8 mmol/L (3.4-5.0); Sodium 136 mmol/L (137-145)
[2021-02-08 04:36] LABS: CRP 1.1 mg/dL (<1.0); Creatine Kinase 572 U/L (30-135)
[2021-02-08 04:45] LABS: Erythrocyte Sedimentation Rate 13 mm/hr (0-20)
[2021-02-08 04:47] LABS: Hemoglobin A1C 8.1 % (<5.7)
[2021-02-08 05:22] LABS: Glucose Point of Care 186 mg/dl (65-105)
--- NOTE | 2021-02-08 05:24 | PC.NURSE ---
Pt had dark, loose bm, with odor of blood. ED MD in room with guiac card and developer, specimen obtained from pt; + GUAIAC per ED MD.
[2021-02-08 05:51] LABS: Glucose Point of Care 189 mg/dl (65-105)
--- NOTE | 2021-02-08 06:55 | PC.NURSE ---
Patients bedside glucose is 141.
[2021-02-08 06:56] LABS: Glucose Point of Care 141 mg/dl (65-105)
--- NOTE | 2021-02-08 07:33 | PC.NURSE ---
Assumed care of patient. US at bedside currently. Pt resting in NAD, remains on monitor. Denies any needs at this time. Pt updated that lab draw and blood sugar will be done soon. Call light in reach.
[2021-02-08 08:25] LABS: Glucose Point of Care 118 mg/dl (65-105)
[2021-02-08 08:31] LABS: Anion Gap 9 mmol/L (8-16); Blood Urea Nitrogen 50 mg/dL (7-17); Carbon Dioxide 22 mmol/L (22-30); Chloride 103 mmol/L (98-107); Estimated CRCL calculation 26 ml/min; Estimated Glomerular Filt Rate 26; Glucose 133 mg/dL (65-110); Potassium 3.8 mmol/L (3.4-5.0); Sodium 134 mmol/L (137-145)
--- NOTE | 2021-02-08 09:31 | PC.NURSE ---
RN called MD Santos to inform him that pt's insulin drip is now off. Per MD Santos, pt okay to go to medical floor. Per MD Santos, pt needs 30 units Lantus now, 5 units Novolog TID before meals, and moderate sliding scale TID before meals. Verbal orders read back to MD and verified. pallet rectifier updated for admission orders to change.
[2021-02-08] MEDS: INSULIN GLARGINE (*BKC) 100 UNITS/ML 30 UNITS SUB-Q (10:05)
[2021-02-08 11:06] LABS: Glucose Point of Care 100 mg/dl (65-105)
[2021-02-08 12:02] LABS: Glucose Point of Care 110 mg/dl (65-105)
[2021-02-08 12:36] LABS: Anion Gap 8 mmol/L (8-16); Blood Urea Nitrogen 51 mg/dL (7-17); Calcium 7.6 mg/dL (8.4-10.2); Carbon Dioxide 21 mmol/L (22-30); Chloride 102 mmol/L (98-107); Estimated CRCL calculation 26 ml/min; Estimated Glomerular Filt Rate 26; Glucose 138 mg/dL (65-110); Potassium 4.4 mmol/L (3.4-5.0); Sodium 131 mmol/L (137-145)
[2021-02-08 13:56] LABS: Glucose Point of Care 141 mg/dl (65-105)
--- NOTE | 2021-02-08 14:47 | ADMGEN ---
This patient, Kyle Sanches, was admitted to Medical Room 347-. Patient/family oriented to hospital policies and general routines including ID bracelet, bed and alarms, visiting hours, pain management, procedures, bathroom and other care routines, personal items, smoking policy, room service/diet, and visiting hours. Information on how to activate the Rapid Response Team has been discussed. Patient/Family are encouraged to report perceived risks to care and to ask questions if they do not understand what they are told or what they should do.
[2021-02-08 16:07] LABS: Anion Gap 12 mmol/L (8-16); Blood Urea Nitrogen 54 mg/dL (7-17); Calcium 7.8 mg/dL (8.4-10.2); Carbon Dioxide 19 mmol/L (22-30); Chloride 102 mmol/L (98-107); Estimated CRCL calculation 27 ml/min; Estimated Glomerular Filt Rate 26; Glucose 201 mg/dL (65-110); Potassium 4.4 mmol/L (3.4-5.0); Sodium 133 mmol/L (137-145)
[2021-02-08 16:10] LABS: Glucose Point of Care 172 mg/dl (65-105)
[2021-02-08] MEDS: INSULIN ASPART (*BKC) 100 UNITS/ML SUB-Q (16:30)
--- NOTE | 2021-02-08 16:45 | PM.IMPN ---
Progress Note: A&P Assessment and Plan (1) Guaiac positive stools: Code(s): R19.5 - Other fecal abnormalities Status: Acute Assessment and Plan: Patient had a dark stool in the ER this morning which was reportedly guaiac positive. She is not having any abdominal or epigastric discomfort. Continue PPI and check stool for occult blood. Repeat H and H in a.m. (2) Diabetic ketoacidosis: Code(s): E11.10 - Type 2 diabetes mellitus with ketoacidosis without coma Status: Resolved Assessment and Plan: 02/07: Patient was recently taken off her insulin regimen for several reasons including poor glucose control as staff at her assisted living facility have not been able to give her her mealtime insulin and due to her vision loss there were concerns that she would not be able to accurately or safely use a pump. She was then started on metformin, Farxiga, and glimepiride as detailed above. At this time she will be admitted to the ICU on an insulin drip which will be titrated per DKA protocol. 02/08: Insulin drip discontinued this morning as anion gap closed. She was started back on Lantus 30 units daily. Continue to hold metformin, glimepiride, and Farxiga. She will need to follow-up with her track service worker on discharge. (3) Type 1 diabetes mellitus: Code(s): E10.9 - Type 1 diabetes mellitus without complications Status: Acute Assessment and Plan: Initially diagnosed in 1993 on oral medication for many years before transitioning to insulin. Plan is as detailed above. (4) Acute kidney injury: Code(s): N17.9 - Acute kidney failure, unspecified Status: Acute Assessment and Plan: 02/07: Precipitating etiology is not entirely clear but may be related to dehydration from DKA, secondary to Farxiga, versus other. She is being aggressively hydrated and we will monitor strict I/Os. Renal ultrasound and urine electrolytes have been ordered for further evaluation. Avoid nephrotoxic agents. 02/08: Creatinine is improving with IV fluids but remains higher than baseline. Continue to hold Farxiga and other nephrotoxic agents. She does not look dry on exam today and has been eating and drinking. Will discontinue IV fluids and repeat labs in a.m.. Renal ultrasound showed normal kidneys without hydronephrosis. (5) Electrolyte abnormality: Code(s): E87.8 - Other disorders of electrolyte and fluid balance, not elsewhere classified Status: Acute Assessment and Plan: 02/07: Including mild hyponatremia and hyperkalemia. 02/08: Potassium has normalized. Sodium has dropped to 127. As she appears euvolemic and is eating and drinking, will discontinue IV fluids after this bag is complete and continue to monitor. (6) Hypothyroidism: Qualifiers: Hypothyroidism type: acquired Qualified Code(s): E03.9 - Hypothyroidism, unspecified Code(s): E03.9 - Hypothyroidism, unspecified Status: Acute Assessment and Plan: Continue levothyroxine. TSH is 1.130. (7) Chronic GERD: Code(s): K21.9 - Gastro-esophageal reflux disease without esophagitis Status: Chronic Assessment and Plan: Continue PPI. (8) Urinary retention: Code(s): R33.9 - Retention of urine, unspecified Status: Acute Assessment and Plan: Patient was reportedly retaining urine and a Ogden catheter was inserted in the emergency department. Given the late hour, will do voiding trial in a.m. Additional Plan Supervising physician for this follow-up is Dr. Morales Santos. Time Spent With Patient Time with patient: 15 - 25 minutes Subjective Date/time seen: 02/08/21 16:45 Interval history: Patient admitted to the emergency department on 02/07/2021 with hyperglycemia, found to be in diabetic ketoacidosis. Insulin drip was discontinued this morning as anion gap closed and she was given Lantus 30 units which is the dose she was taking up until 1
[2021-02-08 18:29] LABS: Creatinine Urine 93.3 mg/dL; Total Protein Urine Random 25 mg/dL; Ur Ttl Prot Creatinine Ratio 0.27 mg/mg (0-0.20)
[2021-02-08 18:30] LABS: Potassium Urine Random 20.1 meq/L
[2021-02-08 18:57] LABS: Eosinophil Urine None Seen % (None Seen)
[2021-02-08 19:51] LABS: Anion Gap 6 mmol/L (8-16); Blood Urea Nitrogen 54 mg/dL (7-17); Calcium 7.9 mg/dL (8.4-10.2); Carbon Dioxide 23 mmol/L (22-30); Chloride 98 mmol/L (98-107); Estimated CRCL calculation 28 ml/min; Estimated Glomerular Filt Rate 28; Glucose 218 mg/dL (65-110); Sodium 127 mmol/L (137-145)
[2021-02-08 20:30] LABS: Sodium Urine Random > 5 meq/L
[2021-02-08 20:35] LABS: Glucose Point of Care 230 mg/dl (65-105)
[2021-02-09 05:42] VITALS: BP 126/51; PULSE 67; RESP 18; TEMP 36; O2SAT 93
[2021-02-09 06:45] LABS: Hematocrit 33.6 % (37.0-47.0); Mean Corpuscular HGB Conc 32.7 g/dl (32-36); Mean Corpuscular Hemoglobin 27.8 pg (26-34); Mean Corpuscular Volume 84.8 fl (80-100); Mean Platelet Volume 12.2 fl (7.4-10.4); Platelet Count Result 170 k/mm3 (150-375); Red Blood Count 3.96 M/mm3 (4.2-5.4); Red Cell Distribution Width 16.7 % (11.5-14.5); White Blood Count 10.8 K/mm3 (4.5-10.0)
[2021-02-09 06:51] LABS: Anion Gap 5 mmol/L (8-16); Blood Urea Nitrogen 48 mg/dL (7-17); Carbon Dioxide 22 mmol/L (22-30); Chloride 104 mmol/L (98-107); Estimated CRCL calculation 33 ml/min; Estimated Glomerular Filt Rate 34; Glucose 195 mg/dL (65-110); Potassium 3.9 mmol/L (3.4-5.0); Sodium 131 mmol/L (137-145)
[2021-02-09 08:05] LABS: Glucose Point of Care 150 mg/dl (65-105)
[2021-02-09] MEDS: INSULIN GLARGINE (*BKC) 100 UNITS/ML 30 UNITS SUB-Q (08:51)
[2021-02-09] MEDS: INSULIN ASPART (*BKC) 100 UNITS/ML SUB-Q ×3 (08:52→17:33)
[2021-02-09] MEDS: LACTATED RINGERS 1,000 ML 80 ML IV CONT (08:56)
[2021-02-09] MEDS: LEVOTHYROXINE SODIUM 125 MCG TABLET PO (09:01)
[2021-02-09] MEDS: FERROUS SULFATE 324 MG TABLET PO (09:02)
[2021-02-09] MEDS: polyethylene glycoL 3350 17 GM POWD.PACK PO ×3 (09:02→17:33)
[2021-02-09] MEDS: BETHANECHOL CHLORIDE 25 MG TABLET PO ×2 (09:02→17:33)
[2021-02-09] MEDS: PANTOPRAZOLE SODIUM IV 40 MG VIAL IV PUSH ×2 (09:02→20:11)
[2021-02-09] MEDS: METOCLOPRAMIDE HCL 5 MG TABLET PO (09:02)
[2021-02-09] MEDS: PRAVASTATIN SODIUM 20 MG TABLET PO (09:02)
[2021-02-09] MEDS: MAGNESIUM OXIDE 400 MG TABLET PO (09:02)
[2021-02-09] MEDS: SERTRALINE HCL 50 MG TABLET PO (09:03)
[2021-02-09] MEDS: PREGABALIN (*CRX) 50 MG CAPSULE 100 MG PO (09:06)
--- NOTE | 2021-02-09 11:05 | PM.IMPN ---
Progress Note: A&P Assessment and Plan (1) Diabetic ketoacidosis: Code(s): E11.10 - Type 2 diabetes mellitus with ketoacidosis without coma Status: Resolved Assessment and Plan: 02/07: Patient was recently taken off her insulin regimen for several reasons including poor glucose control as staff at her assisted living facility have not been able to give her her mealtime insulin and due to her vision loss there were concerns that she would not be able to accurately or safely use a pump. She was then started on metformin, Farxiga, and glimepiride as detailed above. At this time she will be admitted to the ICU on an insulin drip which will be titrated per DKA protocol. 02/08: Insulin drip discontinued this morning as anion gap closed. She was started back on Lantus 30 units daily. Continue to hold metformin, glimepiride, and Farxiga. She will need to follow-up with her activities officer on discharge. 02/09: Patient was restarted on her Lantus 30 units today, as well as 5 units with meals. We will watch her today to further evaluate her glucose levels and make sure she does not become hypoglycemic which is the reason why she was taken off her insulin a few weeks ago. Patient also has continued FRANCISCO so will continue with some light IV fluid hydration. If all this is improved with stable glucose and renal function and may be able to be discharged tomorrow. (2) Guaiac positive stools: Code(s): R19.5 - Other fecal abnormalities Status: Acute Assessment and Plan: Patient had a dark stool in the ER this morning which was reportedly guaiac positive. 02/09/21-patient did have a bowel movement today and the stool was not dark in color, but she did have bright red blood when she wiped. Patient does have a history of hemorrhoids. Otherwise H&H is stable for her being hospitalized and receiving IV fluids. She is not having any abdominal or epigastric discomfort. Continue PPI and check stool for occult blood. Repeat H and H in a.m. (3) Type 1 diabetes mellitus: Code(s): E10.9 - Type 1 diabetes mellitus without complications Status: Acute Assessment and Plan: Initially diagnosed in 1993 on oral medication for many years before transitioning to insulin. Plan is as detailed above under diabetic ketoacidosis. (4) Acute kidney injury: Code(s): N17.9 - Acute kidney failure, unspecified Status: Acute Assessment and Plan: 02/07: Precipitating etiology is not entirely clear but may be related to dehydration from DKA, secondary to Farxiga, versus other. She is being aggressively hydrated and we will monitor strict I/Os. Renal ultrasound and urine electrolytes have been ordered for further evaluation. Avoid nephrotoxic agents. 02/08: Creatinine is improving with IV fluids but remains higher than baseline. Continue to hold Farxiga and other nephrotoxic agents. She does not look dry on exam today and has been eating and drinking. Will discontinue IV fluids and repeat labs in a.m.. Renal ultrasound showed normal kidneys without hydronephrosis. 02/09: Creatinine improved 1.5, BUN 48. But still elevated since her baseline is 0.8. Will start her on low IV fluids at 80 cc an hour for a total of 1 L. she continues to also have increased thirst to this could also be pertaining to her slight dehydration. Will recheck her labs in the morning and help very a renal function is more back to her baseline. (5) Electrolyte abnormality: Code(s): E87.8 - Other disorders of electrolyte and fluid balance, not elsewhere classified Status: Acute Assessment and Plan: 02/07: Including mild hyponatremia and hyperkalemia. 02/08: Potassium has normalized. Sodium has dropped to 127. As she appears euvolemic and is eatin
--- NOTE | 2021-02-09 11:24 | PCDIET ---
Dietitian consult for DKA. Patient currently on a diabetic consistent carb diet. Tolerating diet today. Patient uses a CGM at home. She is being followed by PCP and seen a dietitian in the past. No further nutritional interventions needed at this time.
[2021-02-09 11:52] LABS: Glucose Point of Care 187 mg/dl (65-105)
[2021-02-09 14:00] VITALS: BP 148/51; PULSE 84; RESP 18; TEMP 36; O2SAT 100
[2021-02-09 17:00] LABS: Glucose Point of Care 163 mg/dl (65-105)
[2021-02-09] MEDS: PREGABALIN (*CRX) 50 MG CAPSULE 200 MG PO (17:34)
[2021-02-09 20:04] VITALS: BP 152/73; PULSE 86; RESP 18; TEMP 36.6; O2SAT 99
[2021-02-09 22:22] LABS: Glucose Point of Care 130 mg/dl (65-105)
[2021-02-10] MEDS: LEVOTHYROXINE SODIUM 125 MCG TABLET PO (05:46)
[2021-02-10] MEDS: BETHANECHOL CHLORIDE 25 MG TABLET PO ×2 (05:46→16:33)
[2021-02-10 05:51] VITALS: BP 154/82; PULSE 77; RESP 24; TEMP 36.8; O2SAT 94
[2021-02-10 05:57] LABS: Hematocrit 35.1 % (37.0-47.0); Hemoglobin 11.2 g/dL (12.0-15.0); Mean Corpuscular HGB Conc 31.9 g/dl (32-36); Mean Corpuscular Hemoglobin 27.3 pg (26-34); Mean Corpuscular Volume 85.6 fl (80-100); Mean Platelet Volume 11.9 fl (7.4-10.4); Platelet Count Result 149 k/mm3 (150-375); Red Cell Distribution Width 16.6 % (11.5-14.5); White Blood Count 5.8 K/mm3 (4.5-10.0)
[2021-02-10 06:25] LABS: Anion Gap 3 mmol/L (8-16); Blood Urea Nitrogen 19 mg/dL (7-17); Calcium 8.8 mg/dL (8.4-10.2); Carbon Dioxide 29 mmol/L (22-30); Chloride 104 mmol/L (98-107); Estimated CRCL calculation 60 ml/min; Estimated Glomerular Filt Rate > 60; Glucose 78 mg/dL (65-110); Potassium 3.7 mmol/L (3.4-5.0); Sodium 136 mmol/L (137-145)
[2021-02-10 08:17] LABS: Glucose Point of Care 90 mg/dl (65-105)
[2021-02-10] MEDS: PANTOPRAZOLE SODIUM IV 40 MG VIAL IV PUSH (08:58)
[2021-02-10] MEDS: SERTRALINE HCL 50 MG TABLET PO (08:58)
[2021-02-10] MEDS: PRAVASTATIN SODIUM 20 MG TABLET PO (08:58)
[2021-02-10] MEDS: polyethylene glycoL 3350 17 GM POWD.PACK PO (08:58)
[2021-02-10] MEDS: MAGNESIUM OXIDE 400 MG TABLET PO (08:58)
[2021-02-10] MEDS: FERROUS SULFATE 324 MG TABLET PO (08:58)
[2021-02-10] MEDS: METOCLOPRAMIDE HCL 5 MG TABLET PO (08:58)
[2021-02-10] MEDS: PREGABALIN (*CRX) 50 MG CAPSULE 100 MG PO (09:05)
[2021-02-10] MEDS: INSULIN ASPART (*BKC) 100 UNITS/ML SUB-Q ×3 (09:13→16:33)
[2021-02-10] MEDS: INSULIN GLARGINE (*BKC) 100 UNITS/ML 30 UNITS SUB-Q (09:14)
[2021-02-10 09:33] LABS: Glucose Point of Care 182 mg/dl (65-105)
[2021-02-10 09:46] LABS: IFOB Positive Control Positive; Immunochemical Fecal Occult Bl Positive (N)
[2021-02-10 12:07] LABS: Glucose Point of Care 166 mg/dl (65-105)
[2021-02-10 14:00] VITALS: BP 152/84; PULSE 82; RESP 18; TEMP 36.6; O2SAT 98
--- NOTE | 2021-02-10 14:23 | PM.DS ---
DS: Admitting Diagnosis Discharge Date 02/10/21 Admitting Diagnosis DKA DS: Discharge Diagnosis Discharge Diagnosis (1) Diabetic ketoacidosis: Code(s): E11.10 - Type 2 diabetes mellitus with ketoacidosis without coma Status: Resolved Assessment and Plan: 02/07: Patient was recently taken off her insulin regimen for several reasons including poor glucose control as staff at her assisted living facility have not been able to give her her mealtime insulin and due to her vision loss there were concerns that she would not be able to accurately or safely use a pump. She was then started on metformin, Farxiga, and glimepiride as detailed above. At this time she will be admitted to the ICU on an insulin drip which will be titrated per DKA protocol. 02/08: Insulin drip discontinued this morning as anion gap closed. She was started back on Lantus 30 units daily. Continue to hold metformin, glimepiride, and Farxiga. She will need to follow-up with her productivity engineer on discharge. 02/09: Patient was restarted on her Lantus 30 units today, as well as 5 units with meals. We will watch her today to further evaluate her glucose levels and make sure she does not become hypoglycemic which is the reason why she was taken off her insulin a few weeks ago. Patient also has continued FRANCISCO so will continue with some light IV fluid hydration. If all this is improved with stable glucose and renal function and may be able to be discharged tomorrow. 02/10: Pt doing well today. No complaints and would like to be discharged back to her assisted living facility. Her blood sugars have been doing much better. No hypoglycemic episodes. Plan is to discharge her home on the Lantus 30 units and 5 units scheduled with meals. I also advised her to follow up with her productivity engineer this week regarding the changes. All questions and concerns addressed. Pt being discharged home in stable condition. (2) Guaiac positive stools: Code(s): R19.5 - Other fecal abnormalities Status: Acute Assessment and Plan: Patient had a dark stool in the ER this morning which was reportedly guaiac positive. 02/09/21-patient did have a bowel movement today and the stool was not dark in color, but she did have bright red blood when she wiped. Patient does have a history of hemorrhoids. Otherwise H&H is stable for her being hospitalized and receiving IV fluids. She is not having any abdominal or epigastric discomfort. PPI continued (3) Type 1 diabetes mellitus: Code(s): E10.9 - Type 1 diabetes mellitus without complications Status: Acute Assessment and Plan: Initially diagnosed in 1993 on oral medication for many years before transitioning to insulin. Plan is as detailed above under diabetic ketoacidosis. (4) Acute kidney injury: Code(s): N17.9 - Acute kidney failure, unspecified Status: Acute Assessment and Plan: 02/07: Precipitating etiology is not entirely clear but may be related to dehydration from DKA, secondary to Farxiga, versus other. She is being aggressively hydrated and we will monitor strict I/Os. Renal ultrasound and urine electrolytes have been ordered for further evaluation. Avoid nephrotoxic agents. 02/08: Creatinine is improving with IV fluids but remains higher than baseline. Continue to hold Farxiga and other nephrotoxic agents. She does not look dry on exam today and has been eating and drinking. Will discontinue IV fluids and repeat labs in a.m.. Renal ultrasound showed normal kidneys without hydronephrosis. 02/09: Creatinine improved 1.5, BUN 48. But still elevated since her baseline is 0.8. Will start her on low IV fluids at 80 cc an hour for a total of 1 L. she continues to also have increased thirst to this could also be pertaining to her slight dehydra
[2021-02-10 16:54] LABS: Glucose Point of Care 177 mg/dl (65-105)
[2021-02-10] MEDS: PREGABALIN (*CRX) 50 MG CAPSULE 200 MG PO (17:07)
[2021-02-11 19:53] LABS: Osmolality, Urine 527 mOsm/kg (50-1200)
[2021-02-12 18:05] LABS: Chloride Rand Ur <20 mmol/L (32-290); Creatinine Random Urine 65 mg/dL (20-275)
--- NOTE | 2021-02-17 10:44 | PC.NURSE ---
Blood cx are negative.
== END 2021-02-10 17:28 ==
LOC: ANHED 22:25 → ANHICU 02-08 08:43 → ANH3MED 02-08 12:24
PROVIDERS: Physician Assistant; Admitting Provider Internal Medicine; Emergency Provider Emergency Medicine; Visit Provider Internal Medicine
DX: E10.10 Type 1 diabetes mellitus with ketoacidosis without coma (principal); N17.9 Acute kidney failure, unspecified; E10.42 Type 1 diabetes mellitus with diabetic polyneuropathy; E10.319 Type 1 diabetes mellitus with unspecified diabetic retinopathy without macular edema; E78.5 Hyperlipidemia, unspecified; E03.9 Hypothyroidism, unspecified; E87.8 Other disorders of electrolyte and fluid balance, not elsewhere classified; I10 Essential (primary) hypertension; K21.9 Gastro-esophageal reflux disease without esophagitis; R19.5 Other fecal abnormalities; R33.9 Retention of urine, unspecified; Z79.899 Other long term (current) drug therapy; Z79.4 Long term (current) use of insulin; Z86.73 Personal history of transient ischemic attack (TIA), and cerebral infarction without residual deficits; Z90.49 Acquired absence of other specified parts of digestive tract
CPT/HCPCS: 36415; 51701; 71045; 76775; 80048; 80053; 81001; 82010; 82274; 82436; 82550; 82570; 82948; 83036; 83605; 83735; 83935; 84100; 84133; 84156; 84300; 84443; 85025; 85027; 85652; 85999; 86140; 87040; 93005; 96361; 96365; 96367; 96368; 96375; 96376; 99285; A9270; C9113; G0378; J1815; J3480; J7030; J7120

== ENCOUNTER 2021-02-19 09:28 | Outpatient (CLI) | payer MEDICARE, MEDICAID, SELFPAY ==
--- NOTE | ~2021-02-19 | CT_ITS ---
EXAMINATION: CT brain wo con DATE: 02/19/2021 09:48 INDICATION: Confusion TECHNIQUE: Computed tomography (CT) of the head was performed without intravenous contrast. The dose- length product was 983.67 mGy-cm. Automated exposure control and iterative reconstruction technique w ere employed. COMPARISON: CT dated 11/14/2018 FINDINGS: No acute intracranial hemorrhage, infarction, mass or mass effect. No ventriculomegaly or m idline shift. Basilar cisterns are patent. There are scattered mild periventricular and subcortical w jack matter changes, most likely related to small vessel ischemic disease (microangiopathy). Paranasa l sinuses and mastoids are pneumatized. No depressed skull fractures. IMPRESSION: 1. No acute intracranial abnormality. 2: Chronic age-related findings. Reviewed, dictated and finalized at location A. ARIUM WORKER
== END 2021-02-19 09:29 | disposition home or self-care (01) ==
LOC: ANHIMG 09:31
PROVIDERS: PCP Physician Assistant; Visit Provider Physician Assistant
DX: R29.818 Other symptoms and signs involving the nervous system (principal)
CPT/HCPCS: 70450

== ENCOUNTER 2021-03-27 14:25 | Outpatient (CLI) | payer MEDICARE, MEDICAID, SELFPAY ==
--- NOTE | ~2021-03-27 | MM_ITS ---
EXAMINATION: MM screening chiara BI w hiram HISTORY: Screening mammogram, family history of breast cancer in her sister. TECHNIQUE: Craniocaudal and mediolateral oblique 3-D tomosynthesis images were obtained and synthetic 2-D images were generated. CAD analysis was submitted and interpreted. COMPARISON: 03/06/2020, 08/09/2018, 09/13/2016, 02/27/2016, 02/18/2016 BREAST PARENCHYMAL COMPOSITION: There are scattered areas of fibroglandular density. FINDINGS: There is no evidence of suspicious mass, calcification, or architectural distortion to sugg est malignancy in either breast. There has been no suspicious interval change. IMPRESSION: 1. No mammographic evidence of malignancy. 2. Recommend routine screening mammography in one year. BI-RADS Category 1: Negative Reviewed, dictated and finalized at location A. CERTIFIED TECHNICIAN
== END 2021-03-27 14:26 | disposition home or self-care (01) ==
PROVIDERS: PCP Physician Assistant; Visit Provider Obstetrics & Gynecology
DX: Z12.31 Encounter for screening mammogram for malignant neoplasm of breast (principal)
CPT/HCPCS: 77063; 77067

== ENCOUNTER 2021-05-07 07:51 | Outpatient (CLI) | payer MEDICARE, MEDICAID, SELFPAY ==
[2021-05-07 08:13] LABS: Basophils Absolute Auto 0.1 K/mm3 (0.0-0.1); Basophils Percent Auto 1.2 % (0.2-1.2); Eosinophils Absolute Auto 0.2 K/mm3 (0-0.3); Eosinophils Percent Auto 4.6 % (0-4.4); Hematocrit 41.1 % (37.0-47.0); Hemoglobin 13.3 g/dL (12.0-15.0); Immature Granulocyte Absolute 0.01 K/mm3 (0.00-0.031); Immature Granulocyte Percent A 0.2 % (0-0.5); Lymphocytes Absolute Auto 1.27 K/mm3 (0.9-3.2); Lymphocytes Percent Auto 25.5 % (18.3-44.2); Mean Corpuscular HGB Conc 32.4 g/dl (32-36); Mean Corpuscular Hemoglobin 28.4 pg (26-34); Mean Corpuscular Volume 87.6 fl (80-100); Mean Platelet Volume 10.4 fl (7.4-10.4); Monocytes Absolute Auto 0.4 K/mm3 (0.1-0.6); Monocytes Percent Auto 8.4 % (2.6-8.5); Neutrophils Percent Auto 60.1 % (45.5-73.1); Platelet Count Result 214 k/mm3 (150-375); Red Blood Count 4.69 M/mm3 (4.2-5.4); Red Cell Distribution Width 13.4 % (11.5-14.5)
[2021-05-07 08:32] LABS: Iron 43 ug/dL (37-170)
[2021-05-07 08:42] LABS: Percent Iron Saturation 14 % (20-50)
== END 2021-05-07 07:52 | disposition home or self-care (01) ==
LOC: ANHLAB 07:57
PROVIDERS: PCP Physician Assistant; Visit Provider Physician Assistant
DX: D64.9 Anemia, unspecified (principal)
CPT/HCPCS: 36415; 82607; 82746; 83540; 83550; 85025

== ENCOUNTER 2021-07-21 00:10 | Day surgery (SDC) | payer MEDICARE, MEDICAID, SELFPAY ==
[2021-07-07 14:15] VITALS: BMI 35.9
[2021-07-21 06:26] VITALS: BP 130/63; PULSE 84; RESP 17; TEMP 36.6; O2SAT 93; BMI 34.5
[2021-07-21] MEDS: LACTATED RINGERS 1,000 ML 150 ML IV CONT (06:47)
[2021-07-21 06:49] LABS: Glucose Point of Care 263 mg/dl (65-105)
--- NOTE | 2021-07-21 06:55 | WPDANESEPPF ---
Anes - Initial Pre Proc Eval Procedure: Operation Date: 07/21/21 07:30 Proposed Procedures p Screening Colonoscopy - Kermit Dean MD Date/Time: 07/21/21 06:55 Surgeon: Kermit Dean MD Pre Op Diagnosis: neoplasm screening Patient Data Age: 71 Gender: F Height: 1.6 m Weight: 88.5 kg Last Vital Signs Temp 36.6 C 07/21/21 06:26 Pulse 84 07/21/21 06:26 Resp 17 07/21/21 06:26 BP 130/63 07/21/21 06:26 Pulse Ox 93 07/21/21 06:26 O2 Del Method Room Air 07/21/21 06:26 Allergies Allergy/AdvReac Type Severity Reaction Status Date / Time estrogens, conjugated Allergy Mild Rash Verified 07/21/21 06:24 [From Prempro] medroxyprogesterone Allergy Mild Rash Verified 07/21/21 06:24 [From Prempro] Home Medications Medication Instructions Recorded Confirmed Type blood sugar diagnostic (OneTouch #400 ea 10/29/19 07/21/21 Rx Verio test strips) flash glucose scanning reader #1 ea 11/29/19 07/21/21 Rx (FreeStyle Getachew 2 [place]) polyethylene glycol 3350 17 gram 17 g PO TID 03/19/20 07/21/21 History oral powder packet (Miralax) cholecalciferol (vitamin D3) 50 50 mcg PO DAILY 06/24/20 07/21/21 History mcg (2,000 unit) capsule calcium carbonate 600 mg-vitamin 1 tablet PO BID #180 tabs 07/01/20 07/21/21 Rx D3 5 mcg (200 unit) tablet (Calcium 600 + D(3)) bethanechol chloride 25 mg tablet 25 mg PO BID #60 tabs 08/20/20 07/21/21 Rx magnesium oxide 400 mg (241.3 mg 400 mg PO DAILY #30 tabs 08/20/20 07/21/21 Rx magnesium) tablet flash glucose sensor (FreeStyle #8 ea 09/30/20 07/21/21 Rx Getachew 2 Sensor) levothyroxine 125 mcg tablet 125 mcg PO DAILY 90 days #90 tabs 09/30/20 07/21/21 Rx pravastatin 20 mg tablet 20 mg PO DAILY #90 tabs 09/30/20 07/21/21 Rx ferrous sulfate 325 mg (65 mg 325 mg PO DAILY #30 tabs 12/03/20 07/21/21 Rx iron) tablet insulin lispro 100 unit/mL 5 unit (0.05 mL) subcut TIDWMEAL 02/11/21 07/21/21 Rx subcutaneous pen (Humalog KwikPen #15 mL (U-100) Insulin) glucagon 1 mg solution for 1 mg subcut ONCE PRN hypoglycemia 02/12/21 07/21/21 Rx injection (Glucagon Emergency Kit) #1 ea acetaminophen 500 mg tablet 500 mg PO Q6H PRN pain #120 tabs 02/13/21 07/21/21 Rx (Tylenol Extra Strength) sertraline 100 mg tablet 100 mg PO DAILY #90 tabs 02/25/21 07/21/21 Rx insulin degludec 200 unit/mL (3 26 unit (0.13 mL) subcut DAILY 90 04/22/21 07/21/21 Rx mL) subcutaneous pen (Tresiba days #11.7 mL FlexTouch U-200 insulin) omeprazole 40 mg capsule,delayed 40 mg PO BID 1 month #60 caps 04/23/21 07/21/21 Rx release pregabalin 100 mg capsule See Rx Instructions PO TID 90 days 06/04/21 07/21/21 Rx #270 caps metoclopramide HCl 5 mg tablet 5 mg PO DAILY 3 months #90 tabs 06/05/21 07/21/21 Rx alprazolam 0.5 mg tablet 0.5 mg PO DAILY PRN anxiety #20 07/01/21 07/21/21 Rx tabs lisinopril 10 mg tablet 10 mg PO DAILY #30 tabs 07/07/21 07/21/21 Rx triamcinolone acetonide 0.1 % 1 applic topical BID #30 grams 07/14/21 07/21/21 Rx topical cream Laboratory Tests 07/21/21 06:35 POC Capillary Glucose 263 mg/dl H mg/dl (65-105) Patient hx anesthesia problems: none Family hx anesthesia problems: none Results Review: All pre-operative results and documents have been reviewed as part of the pre-operative evaluation. 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 Chronic GERD Depression Diabetic neuropathy Diabetic retinopathy Legally blind secondary to such. Erosive esophagitis With history of esophageal ulcers. Hiatal hernia Hyperlipidemia Hypertension Hypothyroid Macular degeneration Thyroid goiter Type 1 diabetes mellitus Diagnosed in 1993. On oral medication for many years before transitioning to insulin. C-peptide less than 0.1
--- NOTE | 2021-07-21 07:22 | PM.HPGS ---
History of Present Illness History of Present Illness Consent: Risks, benefits, and alternatives have been discussed and questions answered. Patient agrees to proceed with procedure. Chief complaint: neoplasm screening Narrative: Kyle Sanches is a 71 year old female here for screening colonoscopy Review of Systems Constitutional: Constitutional: Denies headache(s) and Denies weakness Eyes: Eyes: Denies blurry vision ENT: Reports Normal hearing present, Denies headache(s) and Denies neck pain Cardiovascular: Cardiovascular: Denies chest pain and Denies dyspnea Respiratory: Respiratory: Denies dyspnea Gastrointestinal: Gastrointestinal: Reports no additional gastrointestinal complaints Genitourinary: Genitourinary: Denies dysuria Musculoskeletal: Musculoskeletal: Denies neck pain Integumentary/Breasts: Skin/Breast: Denies dry skin Neurologic: Reports Normal hearing present, Denies headache(s) and Denies weakness Psychiatric: Psychiatric: Denies anxiety Endocrine: Endocrine: Denies change in body appearance Hematologic/Lymphatic: Hematologic/Lymphatic: Denies easy bleeding Allergic/Immunologic: Allergic/Immunologic: Denies urticaria PMF Past Medical History Medical History (Updated 07/21/21 @ 07:24 by Kermit Dean MD) Anxiety Cerebrovascular accident 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 Erosive esophagitis With history of esophageal ulcers. Hiatal hernia Hyperlipidemia Hypertension Hypothyroid Macular degeneration Thyroid goiter Type 1 diabetes mellitus Diagnosed in 1993. On oral medication for many years before transitioning to insulin. C-peptide less than 0.1, KHUSHBOO > 50 on labs in March 2016. Vitamin D deficiency Surgical History Surgical History History of bilateral cataract extraction History of cardiac catheterization History of cholecystectomy (2001) History of colonoscopy with polypectomy History of esophageal dilatation (01/2017) For esophageal stricture. History of orthopedic surgery Including surgeries to the right elbow, shoulder, and toe. History of surgical procedure on eye proper using laser For diabetic retinopathy. Family History Family History Father Family history of elevated blood lipids Hypertension Family history of malignant neoplasm of kidney Family history of lung cancer Mother Family history of elevated blood lipids Sibling Family history of elevated blood lipids Family history of thyroid disease Hypertension Family history of diabetes mellitus in first degree relative Social History Social History Social History: Surrogate decision maker: Marisol Cristina (sister) or Alejandra Saeed (daughter). Code status: Full code. Smoking status: Never smoker Second hand tobacco smoke exposure: No Alcohol intake: never Substance use: never Substance use type: does not use Living arrangements: assisted living Additional living arrangements comments: Lives in assisted living at [facility]. 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 Spiritual care concerns: No Meds Home Medications and Allergies Home Medications Medication Instructions Recorded Confirmed Type blood sugar diagnostic (OneTouch #400 ea 10/29/19 07/21/21 Rx Verio test strips) flash glucose scanning reader #1 ea 11/29/19 07/21/21 Rx (FreeStyle Getachew 2 [place]) polyethylene glycol 3350 17 gram 17 g PO TID 03/19/20 07/21/21 History oral powder packet (Miralax) cholecalciferol (vitamin D3) 50 50 mcg PO DAILY 06/24/20 07/21/21 History mcg (2,000 unit) capsule calciu
[2021-07-21 07:47] VITALS: BP 80/44; PULSE 62; RESP 10; O2SAT 94
[2021-07-21 07:57] VITALS: BP 92/52; PULSE 64; RESP 16; O2SAT 96
[2021-07-21 08:07] VITALS: BP 123/61; PULSE 66; RESP 16; O2SAT 96
--- NOTE | 2021-07-21 08:16 | SUR.PHASEII ---
Pt glucose sensor reading is 223
== END 2021-07-21 08:16 | disposition home or self-care (01) ==
PROVIDERS: PCP Physician Assistant; Visit Provider Internal Medicine Gastroenterology
PROC: 0DJD8ZZ Inspection of Lower Intestinal Tract, Via Natural or Artificial Opening Endoscopic (ICD-10-PCS; CPT 45378; principal; 2021-07-21 07:30)
DX: Z12.11 Encounter for screening for malignant neoplasm of colon (principal); K64.8 Other hemorrhoids; E04.8 Other specified nontoxic goiter; F41.9 Anxiety disorder, unspecified; K21.9 Gastro-esophageal reflux disease without esophagitis; F41.8 Other specified anxiety disorders; E55.9 Vitamin D deficiency, unspecified; K44.9 Diaphragmatic hernia without obstruction or gangrene; I10 Essential (primary) hypertension; E78.5 Hyperlipidemia, unspecified; Z86.73 Personal history of transient ischemic attack (TIA), and cerebral infarction without residual deficits; E10.40 Type 1 diabetes mellitus with diabetic neuropathy, unspecified; K22.10 Ulcer of esophagus without bleeding; Z79.4 Long term (current) use of insulin; E03.9 Hypothyroidism, unspecified; K59.00 Constipation, unspecified; H35.30 Unspecified macular degeneration; E66.9 Obesity, unspecified; Z68.34 Body mass index [BMI] 34.0-34.9, adult
CPT/HCPCS: G0121; 82948; J2704; J7120

== ENCOUNTER 2021-08-12 06:50 | Outpatient (CLI) | payer MEDICARE, MEDICAID, SELFPAY ==
[2021-08-12 08:12] LABS: Alanine Aminotransferase 19 U/L (6-35); Albumin Level 4.3 g/dL (3.5-5.1); Alkaline Phosphatase 89 U/L (38-126); Anion Gap 3 mmol/L (8-16); Aspartate Amino Transferase 25 U/L (14-36); Bilirubin,Total 0.4 mg/dL (0.2-1.3); Blood Urea Nitrogen 18 mg/dL (7-17); Calcium 9.3 mg/dL (8.4-10.2); Carbon Dioxide 33 mmol/L (22-30); Chloride 102 mmol/L (98-107); Cholesterol 197 mg/dL (0-200); Estimated Glomerular Filt Rate > 60; Glucose 105 mg/dL (65-110); HDL Direct 89 mg/dL; Potassium 4.2 mmol/L (3.4-5.0); Sodium 138 mmol/L (137-145); Triglycerides 61 mg/dL (<150)
[2021-08-12 08:23] LABS: LDL Cholesterol Direct 63 mg/dL
[2021-08-12 08:37] LABS: Vitamin D 25 Hydroxy 54.3 ng/mL
[2021-08-12 08:41] LABS: Total Triiodothyronine (T3) 0.81 NG/ML (0.97-1.69)
[2021-08-12 14:41] LABS: Creatinine Urine 77.1 mg/dL
[2021-08-12 14:58] LABS: MALB Creatinine Ratio < 7.8 mg/g (0-30); Microalbumin Urine Random < 6.0 mg/L (0-16.7)
== END 2021-08-12 06:51 | disposition home or self-care (01) ==
LOC: ANHLAB 07:03
PROVIDERS: PCP Physician Assistant; Visit Provider Nurse Practitioner Family
DX: E10.9 Type 1 diabetes mellitus without complications (principal); R53.83 Other fatigue; M81.0 Age-related osteoporosis without current pathological fracture; E03.9 Hypothyroidism, unspecified
CPT/HCPCS: 36415; 80053; 80061; 82043; 82306; 82607; 84439; 84443; 84480

== ENCOUNTER 2022-01-20 08:42 | Outpatient (CLI) | payer MEDICARE, MEDICAID, SELFPAY ==
--- NOTE | ~2022-01-20 | DEXA_ITS ---
Bone Density Report Name: PRINCE HERNANDEZ Age: 72 Sex: Female Ethnicity: White Date of : 1950 Indication: postmenopausal osteoporosis; height loss; Referring Provider: FELIX LEE Study: Bone densitometry was performed. Exam Date: January 20, 2022 Accession number: [id number] Bone Density: Region BMD T-score Z-score Classification AP Spine(L1-L4) 0.717 -3.0 -0.7 Osteoporosis Femoral Neck (Left) 0.654 -1.8 0.3 Osteopenia Total Hip (Left) 0.681 -2.1 -0.4 Osteopenia Femoral Neck (Right) 0.607 -2.2 -0.2 Osteopenia Total Hip (Right) 0.644 -2.4 -0.7 Osteopenia Total Hip Mean 0.663 -2.3 -0.6 Osteopenia World Health Organization criteria for BMD impression classify patients as: Normal (T-score at or above -1.0), Osteopenia (T-score between -1.0 and -2.5), or Osteoporosis (T-score at or below -2.5). 10-year Fracture Risk: FRAX not reported because: Some T-score for Spine Total or Hip Total or Femoral Neck at or below -2.5 Previous Exams: Region Exam Age BMD T-score BMD Change BMD Change Date g/cm2 vs Baseline vs Previous AP Spine (L1-L4) 01/20/2022 72 0.717 -3.0 -0.028 (-3.8%) -0.028 (-3.8%) 12/19/2018 68 0.745 -2.7 Total Hip(Left) 01/20/2022 72 0.681 -2.1 -0.099 (-12.7% -0.025 (-3.6%) 12/19/2018 68 0.707 -1.9 -0.074 (-9.5%) -0.074 (-9.5%) 11/23/2016 66 0.780 -1.3 Total Hip(Right) 01/20/2022 72 0.644 -2.4 -0.086 (-11.7% -0.047 (-6.8%) 12/19/2018 68 0.691 -2.1 -0.039 (-5.3%) -0.039 (-5.3%) 11/23/2016 66 0.729 -1.7 *Denotes significance at 95% confidence level, LSC for AP Spine = 0.022 g/cm2, LSC for Total Hip = 0.027 g/cm2 Clinical Information Provided by Patient: Has used the following medications: Vitamin D, Calcium Patient maximum height was 61.5 Menopause Age: 50 No regular weight bearing exercise Does not regularly consume dairy products Drinks caffeinated beverages Onset of menses at age 12 Number of children 1 Impression: The patient has osteoporosis, based on the Total Spine T-score. The BMD for the AP Spine (L1-L4) decreased, changing by -3.8% since the last DXA exam. The BMD for the Total Hip(Right) decreased, changing by -6.8% since the last DXA exam. Discussion: INCREASED RISK OF FRACTURE. BONE DENSITY IS UNDESIRABLY LOW AT ONE OR MORE SKELETAL SITES, CONSISTENT WITH POSTMENOPAUSAL OSTEOPOROSIS. This patient's lowest T-score meets the World Health Organization's (WHO) criteria fo
== END 2022-01-20 08:43 | disposition home or self-care (01) ==
PROVIDERS: PCP Physician Assistant; Visit Provider Internal Medicine Endocrinology, Diabetes & Metabolism
DX: Z78.0 Asymptomatic menopausal state (principal); E03.9 Hypothyroidism, unspecified; E10.65 Type 1 diabetes mellitus with hyperglycemia; M81.0 Age-related osteoporosis without current pathological fracture; M85.89 Other specified disorders of bone density and structure, multiple sites
CPT/HCPCS: 77080

== ENCOUNTER 2022-04-12 21:40 | Emergency (ER) | payer MEDICARE, MEDICAID, SELFPAY ==
--- NOTE | ~2022-04-12 | XR_ITS ---
XR chest 1V portable DATE: 04/13/2022 00:07 INDICATION: Cough TECHNIQUE: Portable upright AP chest on April 13, 2022 at 0006 hours COMPARISON: 02/07/2021 portable AP chest at 2256 hours FINDINGS: Normal heart size. Is aortic calcification and unfolding. No hilar or mediastinal enlargeme nt. No pulmonary infiltrate or consolidation, pleural effusion or pulmonary vascular congestion or pneumo thorax is evident. Osteopenia. Status post cholecystectomy. IMPRESSION: No active cardiopulmonary disease Aortic atherosclerosis Osteopenia Reviewed, dictated and finalized at location A. [employer]
[2022-04-12 21:40] VITALS: BP 138/76; PULSE 76; RESP 14; TEMP 36.8; O2SAT 94
[2022-04-12 21:45] LABS: Glucose Point of Care 65 mg/dl (65-105)
[2022-04-12 23:19] LABS: Glucose Point of Care 202 mg/dl (65-105)
[2022-04-12 23:54] LABS: Basophils Absolute Auto 0.1 K/mm3 (0.0-0.1); Basophils Percent Auto 0.9 % (0.2-1.2); Eosinophils Absolute Auto 0.3 K/mm3 (0-0.3); Eosinophils Percent Auto 4.8 % (0-4.4); Hematocrit 37.3 % (37.0-47.0); Hemoglobin 12.2 g/dL (12.0-15.0); Immature Granulocyte Absolute 0.02 K/mm3 (0.00-0.031); Immature Granulocyte Percent A 0.4 % (0-0.5); Lymphocytes Absolute Auto 1.19 K/mm3 (0.9-3.2); Lymphocytes Percent Auto 22.2 % (18.3-44.2); Mean Corpuscular HGB Conc 32.7 g/dl (32-36); Mean Corpuscular Hemoglobin 28.9 pg (26-34); Mean Corpuscular Volume 88.4 fl (80-100); Mean Platelet Volume 11.3 fl (7.4-10.4); Monocytes Absolute Auto 0.4 K/mm3 (0.1-0.6); Neutrophils Absolute Auto 3.4 K/mm3 (1.3-6.7); Neutrophils Percent Auto 63.7 % (45.5-73.1); Platelet Count Result 181 k/mm3 (150-375); Red Blood Count 4.22 M/mm3 (4.2-5.4); White Blood Count 5.4 K/mm3 (4.5-10.0)
--- NOTE | 2022-04-13 00:06 | PC.NURSE ---
Patient ambulated to the restroom and back to ED room 4 with walker and ED respiratory care technician without difficulty. Patient able to provide urine sample, sample sent to laboratory.
[2022-04-13 00:09] LABS: Alanine Aminotransferase 32 U/L (6-35); Albumin Level 3.9 g/dL (3.5-5.1); Alkaline Phosphatase 91 U/L (38-126); Anion Gap 1 mmol/L (8-16); Aspartate Amino Transferase 44 U/L (14-36); Bilirubin,Total 0.3 mg/dL (0.2-1.3); Blood Urea Nitrogen 21 mg/dL (7-17); Calcium 9.2 mg/dL (8.4-10.2); Carbon Dioxide 32 mmol/L (22-30); Chloride 97 mmol/L (98-107); Estimated CRCL calculation 52 ml/min; Estimated Glomerular Filt Rate > 60; Glucose 171 mg/dL (65-110); Potassium 4.1 mmol/L (3.4-5.0); Sodium 130 mmol/L (137-145)
[2022-04-13 00:18] VITALS: PULSE 74; RESP 22; O2SAT 95
[2022-04-13 00:19] LABS: Add Urine Microscopic? NO; Appearance Urine Clear (Clear); Bilirubin Urine Negative (Negative); Blood Urine Negative (Negative); Color Urine Yellow (Yellow); Glucose Urine UA Negative (Negative); Ketones Urine Negative (Negative); Leukocyte Esterase Ur Negative LEU/UL (Negative); Nitrate Urine Negative (Negative); Protein Urine Negative (Negative); Urobilinogen Urine 0.2 mg/dL (<2.0)
[2022-04-13 00:21] LABS: Mucus Urine Rare /lpf; RBC Urine 0-2 /hpf (0-2); WBC Urine 0-3 /hpf
[2022-04-13 00:29] LABS: Influenza A QL RT-PCR Negative (Negative); Influenza B QL RT-PCR Negative (Negative); SARS-CoV-2 RNA PCR Negative
[2022-04-13 00:30] VITALS: PULSE 73; RESP 16; O2SAT 96
[2022-04-13 01:00] VITALS: PULSE 70; RESP 21; O2SAT 94
[2022-04-13 01:15] VITALS: PULSE 68; RESP 22; O2SAT 96
--- NOTE | 2022-04-13 01:55 | ED.GENADULT ---
HPI - General Adult General Chief complaint: Recheck/Abnormal Lab/Rx Stated complaint: LOW BLOOD GLUCOSE Time Seen by Provider: 04/12/22 23:23 History of Present Illness HPI narrative: Is a 72-year-old female who presents emergency room with chief complaint of hypoglycemia. Patient reports that she has a history of diabetes and reported that her blood sugars have been running somewhat low today. Patient had an episode where her blood sugars were down in the 50s and 60s. Patient reports that she felt kind of weak during this time patient denies chest pain denies shortness of breath denies urinary symptoms. Related Data Home Medications Medication Instructions Recorded Confirmed cholecalciferol (vitamin D3) 50 50 mcg PO DAILY 06/24/20 03/05/22 mcg (2,000 unit) capsule lisinopril 10 mg tablet 10 mg PO DAILY 08/18/21 03/05/22 Allergies Allergy/AdvReac Type Severity Reaction Status Date / Time estrogens, conjugated Allergy Mild Rash Verified 03/05/22 13:31 [From Prempro] medroxyprogesterone Allergy Mild Rash Verified 03/05/22 13:31 [From Prempro] Review of Systems Review of Systems: A 10 system review of systems was completed on the patient and is negative except for what is stated in the HPI. Nursing and ancillary documentation was reviewed. 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 Erosive esophagitis With history of esophageal ulcers. Hiatal hernia Hyperlipidemia Hypertension Hypothyroid Macular degeneration Thyroid goiter Type 1 diabetes mellitus Diagnosed in 1993. On oral medication for many years before transitioning to insulin. C-peptide less than 0.1, KHUSHBOO > 50 on labs in March 2016. Vitamin D deficiency Surgical History Surgical History History of bilateral cataract extraction History of cardiac catheterization History of cholecystectomy (2001) History of colonoscopy with polypectomy History of esophageal dilatation (01/2017) For esophageal stricture. History of orthopedic surgery Including surgeries to the right elbow, shoulder, and toe. History of surgical procedure on eye proper using laser For diabetic retinopathy. Family History Family History Father Family history of elevated blood lipids Hypertension Family history of malignant neoplasm of kidney Family history of lung cancer Mother Family history of elevated blood lipids Sibling Family history of elevated blood lipids Family history of thyroid disease Hypertension Family history of diabetes mellitus in first degree relative Social History Social History Social History: Surrogate decision maker: Marisol Ibeth (sister) or Alejandra Atkinsonhaochadwick (daughter). Code status: Full code. Smoking status: Never smoker Second hand tobacco smoke exposure: No Alcohol intake: never Substance use: never Living arrangements: assisted living Additional living arrangements comments: Lives in assisted living at [facility]. 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 Spiritual care concerns: No Exam Narrative: GENERAL: Well-appearing, well-nourished, and in no acute distress. HEAD: Normocephalic, atraumatic. EYES: PERRLA and EOMI. ENT: Nares clear, no rhinorrhea or epistaxis. Mucous membranes moist. NECK: Supple. CHEST: Clear to auscultation. No respiratory distress. HEART: Regular rate and rhythm. No murmur heard. Normal peripheral pulses. ABDOMEN: Soft, nontender, nondistend
[2022-04-13 01:59] LABS: Glucose Point of Care 211 mg/dl (65-105)
== END 2022-04-13 02:20 ==
PROVIDERS: Emergency Provider Emergency Medicine; PCP Internal Medicine
DX: E10.649 Type 1 diabetes mellitus with hypoglycemia without coma (principal); Z20.822 Contact with and (suspected) exposure to COVID-19; E10.319 Type 1 diabetes mellitus with unspecified diabetic retinopathy without macular edema; H35.30 Unspecified macular degeneration; E10.40 Type 1 diabetes mellitus with diabetic neuropathy, unspecified; I10 Essential (primary) hypertension; E78.5 Hyperlipidemia, unspecified; E03.9 Hypothyroidism, unspecified; K21.9 Gastro-esophageal reflux disease without esophagitis; K22.10 Ulcer of esophagus without bleeding; E55.9 Vitamin D deficiency, unspecified; Z86.73 Personal history of transient ischemic attack (TIA), and cerebral infarction without residual deficits; H54.8 Legal blindness, as defined in USA; Z98.42 Cataract extraction status, left eye; Z98.41 Cataract extraction status, right eye; Z79.4 Long term (current) use of insulin
CPT/HCPCS: 36415; 71045; 80053; 81003; 82948; 85025; 87636; 99283

== ENCOUNTER 2022-04-14 14:16 | Outpatient (CLI) | payer MEDICARE, SELFPAY ==
[2022-04-14 19:01] LABS: Cholesterol 218 mg/dL (0-200); HDL Direct 96 mg/dL; Triglycerides 102 mg/dL (<150)
[2022-04-14 19:12] LABS: LDL Cholesterol Direct 63 mg/dL
[2022-04-14 19:36] LABS: Free T4 Free Thyroxine 1.25 ng/mL (0.78-2.19)
[2022-04-14 20:02] LABS: Creatinine Urine 34.9 mg/dL
[2022-04-14 20:17] LABS: MALB Creatinine Ratio 17.5 mg/g (0-30); Microalbumin Urine Random 6.1 mg/L (0-16.7)
== END 2022-04-14 14:17 | disposition home or self-care (01) ==
LOC: ANHWCLAB 14:20
PROVIDERS: PCP Internal Medicine; Visit Provider Internal Medicine Endocrinology, Diabetes & Metabolism
DX: E03.9 Hypothyroidism, unspecified (principal); E10.9 Type 1 diabetes mellitus without complications; M81.0 Age-related osteoporosis without current pathological fracture; R79.89 Other specified abnormal findings of blood chemistry
CPT/HCPCS: 36415; 80061; 82043; 82607; 84439

== ENCOUNTER 2022-05-24 14:28 | Outpatient (CLI) | payer MEDICARE, MEDICAID, SELFPAY ==
--- NOTE | ~2022-05-24 | US_ITS ---
EXAMINATION: US venous doppler LE RT DATE: 05/24/2022 15:10 INDICATION: Right lower limb pain and swelling. TECHNIQUE: Grayscale ultrasound images without and with compression and Doppler ultrasound images of the right lower extremity veins were obtained. COMPARISON: Ultrasound 04/21/2018 FINDINGS: The visualized portions of right common femoral vein, profunda (deep) femoral vein, femoral vein, pop liteal vein, peroneal veins, posterior tibial veins, and greater saphenous vein outflow are patent. IMPRESSION: 1. No deep venous thrombosis. Reviewed, dictated and finalized at location A.
== END 2022-05-24 14:29 | disposition home or self-care (01) ==
PROVIDERS: PCP Physician Assistant; Visit Provider Physician Assistant
DX: M79.661 Pain in right lower leg (principal); M79.89 Other specified soft tissue disorders
CPT/HCPCS: 93971

== ENCOUNTER 2022-07-01 09:54 | Outpatient (CLI) | payer MEDICARE, MEDICAID, SELFPAY ==
--- NOTE | ~2022-07-01 | MM_ITS ---
EXAMINATION: MM screening [facility] BI w hiram HISTORY: Screening mammogram TECHNIQUE: Craniocaudal and mediolateral oblique 3-D tomosynthesis images were obtained and synthetic 2-D images were generated. CAD analysis was submitted and interpreted. COMPARISON: 03/27/2021, 03/06/2020, 08/09/2018 BREAST PARENCHYMAL COMPOSITION: There are scattered areas of fibroglandular density. FINDINGS: No suspicious mass, calcification, or architectural distortion are identified in either maribell ast to suggest malignancy. There has been no suspicious interval change. IMPRESSION: 1. No mammographic evidence of malignancy. 2. Recommend routine screening mammography in one year. BI-RADS Category 1: Negative Reviewed, dictated and finalized at location A.
== END 2022-07-01 09:55 | disposition home or self-care (01) ==
LOC: ANHIMG 09:56
PROVIDERS: PCP Physician Assistant; Visit Provider Physician Assistant
DX: Z12.31 Encounter for screening mammogram for malignant neoplasm of breast (principal)
CPT/HCPCS: 77063; 77067

== ENCOUNTER 2022-12-20 10:45 | Emergency (ER) | payer MEDICARE, MEDICAID, SELFPAY ==
--- NOTE | ~2022-12-20 | US_ITS ---
EXAMINATION: US venous doppler LE RT DATE: 12/20/2022 12:59 INDICATION: Right lower limb pain and swelling TECHNIQUE: Grayscale ultrasound images without and with compression and Doppler ultrasound images of the right lower extremity veins were obtained. COMPARISON: None. FINDINGS: The visualized portions of right common femoral vein, profunda (deep) femoral vein, femoral vein, pop liteal vein, peroneal trunk, posterior tibial veins, peroneal veins, gastrocnemius vein and greater s aphenous vein outflow are patent. IMPRESSION: 1. No deep venous thrombosis in the right lower limb. Reviewed, dictated and finalized at location A.
[2022-12-20 11:02] VITALS: BP 137/75
--- NOTE | 2022-12-20 12:23 | ED.LOWEXIN ---
HPI - Extremity Injury (Lower) General Chief Complaint: Extremity Injury, Lower Stated Complaint: swollen R leg Time Seen by Provider: 12/20/22 12:00 History of Present Illness HPI Narrative: Patient is a 72-year-old female presenting with right leg swelling. Patient states that for the last week she has had intermittent swelling and soreness of the right calf. States that it gets better whenever she elevates it. She called her PCP today who told her to come to the ER. No redness. No recent trauma. No chest pain or shortness of breath. No further complaints. Related Data Home Medications Medication Instructions Recorded Confirmed triamcinolone acetonide 0.1 % 1 applic topical BID 05/24/22 12/16/22 topical cream zoledronic acid 5 mg/100 mL in ea IV .yearly 11/22/22 12/16/22 mannitol 5 %-water intravenous piggybck (Reclast) Allergies Allergy/AdvReac Type Severity Reaction Status Date / Time estrogens, conjugated Allergy Mild Rash Verified 12/16/22 11:03 [From Prempro] medroxyprogesterone Allergy Mild Rash Verified 12/16/22 11:03 [From Prempro] Review of Systems Review of Systems: All systems reviewed & are unremarkable except as noted in HPI and below PMFSH Past Medical History Medical History Anxiety Cerebrovascular accident 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 Erosive esophagitis With history of esophageal ulcers. Hiatal hernia Hyperlipidemia Hypertension Hypothyroid Macular degeneration Thyroid goiter Type 1 diabetes mellitus Diagnosed in 1993. On oral medication for many years before transitioning to insulin. C-peptide less than 0.1, KHUSHBOO > 50 on labs in March 2016. Vitamin D deficiency Surgical History Surgical History History of bilateral cataract extraction History of cardiac catheterization History of cholecystectomy (2001) History of colonoscopy with polypectomy History of esophageal dilatation (01/2017) For esophageal stricture. History of orthopedic surgery Including surgeries to the right elbow, shoulder, and toe. History of surgical procedure on eye proper using laser For diabetic retinopathy. Family History Family History Father Family history of elevated blood lipids Hypertension Family history of malignant neoplasm of kidney Family history of lung cancer Mother Family history of elevated blood lipids Sibling Family history of elevated blood lipids Family history of thyroid disease Hypertension Family history of diabetes mellitus in first degree relative Social History Social History Social History: Surrogate decision maker: Marisol Ibeth (sister) or Alejandrara Saeed (daughter). Code status: Full code. Smoking status: Never smoker Second hand tobacco smoke exposure: No Alcohol intake: never Substance use: never Lack of Transportation: No Lack of Food: Never True Current Housing: I Have Housing Concerned About Future Housing: No Difficulty Paying Gas/Electric Bills: No Difficulty Paying for Meds: No Currently Unemployed: No Education: High School Diploma/GED Difficulty w/ Childcare or Family Care: No Living arrangements: assisted living Additional living arrangements comments: Lives in assisted living at [facility]. 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 Spiritual care concerns: No Exam Narrative: GENERAL: Well-appearing, in no acute distress, pleasant and cooperative HEAD: Normocephalic, atraumatic. EYES: EOMI. left pupil appears irregular which is b
[2022-12-20 13:38] VITALS: BP 126/80; PULSE 86; RESP 16; TEMP 36.6; O2SAT 98
== END 2022-12-20 13:38 | disposition home or self-care (01) ==
PROVIDERS: Emergency Provider Emergency Medicine; PCP Physician Assistant
DX: R22.41 Localized swelling, mass and lump, right lower limb (principal); I10 Essential (primary) hypertension; E10.40 Type 1 diabetes mellitus with diabetic neuropathy, unspecified; E10.319 Type 1 diabetes mellitus with unspecified diabetic retinopathy without macular edema; E78.5 Hyperlipidemia, unspecified; E03.9 Hypothyroidism, unspecified; E55.9 Vitamin D deficiency, unspecified; K21.9 Gastro-esophageal reflux disease without esophagitis; K22.10 Ulcer of esophagus without bleeding; K44.9 Diaphragmatic hernia without obstruction or gangrene; H54.8 Legal blindness, as defined in USA; H35.30 Unspecified macular degeneration; F41.9 Anxiety disorder, unspecified; F32.A Depression, unspecified; Z86.73 Personal history of transient ischemic attack (TIA), and cerebral infarction without residual deficits; Z98.42 Cataract extraction status, left eye; Z98.41 Cataract extraction status, right eye; Z90.49 Acquired absence of other specified parts of digestive tract; Z79.4 Long term (current) use of insulin; Z79.85 Long-term (current) use of injectable non-insulin antidiabetic drugs
CPT/HCPCS: 93971; 99284

== ENCOUNTER 2023-01-26 10:42 | Emergency (ER) | payer MEDICARE, MEDICAID, SELFPAY ==
[2023-01-26] VITALS (8 sets, daily range): BP systolic 95–149; BP diastolic 65–81; PULSE 67–75; RESP 14–32; TEMP 36.2; O2SAT 93–95
--- NOTE | ~2023-01-26 | CT_ITS ---
EXAMINATION: CT abdomen pelvis w con DATE: 01/26/2023 14:51 INDICATION: Abdomen pain TECHNIQUE: Computed tomography (CT) of the abdomen and pelvis was performed with 100 cc Omnipaque 350 intravenous contrast. The dose-length product was 1146.75 mGy-cm. Automated exposure control and ite rative reconstruction technique were employed. COMPARISON: CT dated 03/29/2017 FINDINGS: There is dependent atelectasis. Heart size normal. Large hiatal hernia. Status post cholecy stectomy. There is expected prominence of the bile ducts. The liver, spleen, pancreas, adrenal glands and kidneys are otherwise unremarkable. Nonobstructive bowel gas pattern. Atrophic uterus. No signif icant vascular abnormality. No lymphadenopathy. No free air or free fluid. There is focal induration of the subcutaneous tissue of the right lower abdominal wall, possibly related to recent trauma or in jection. Nonobstructive bowel gas pattern. No acute osseous abnormality. Moderate bladder distention. IMPRESSION: 1. No acute abdominal abnormality. Reviewed, dictated and finalized at location B. LIFT DRIVER
--- NOTE | ~2023-01-26 | XR_ITS ---
EXAMINATION: XR chest 2V DATE: 01/26/2023 11:25 INDICATION: Weakness. TECHNIQUE: Frontal and lateral views of the chest were obtained. COMPARISON: Chest single view 04/13/2022 FINDINGS: There are airspace opacities at the lung bases. No pleural effusion or pneumothorax. The he art size is normal. Surgical clips in the right upper quadrant are likely from cholecystectomy. IMPRESSION: 1. Airspace opacities at the lung bases, likely atelectasis. Reviewed, dictated and finalized at location A. LY SALES STAFF
--- NOTE | 2023-01-26 10:45 | ECG_ITS ---
Measurements Intervals Purchase Rate: 67 P: 35 DE: 168 QRS: 38 QRSD: 162 T: 7 QT: 421 QTc: 447 Interpretive Statements SINUS RHYTHM RIGHT BUNDLE BRANCH BLOCK ABNORMAL ECG NO PREVIOUS ECG AVAILABLE FOR COMPARISON Electronically Signed On 01-26-2023 12:45:33 CLINICAL APPEALS SPECIALIST by Son Chow D.O.
--- NOTE | 2023-01-26 11:08 | ED.WEAKNESS ---
HPI - Weakness General Chief complaint: Weakness Stated complaint: weakness Time Seen by Provider: 01/26/23 10:49 Source: patient and EMS Mode of arrival: EMS Limitations: no limitations History of Present Illness HPI Narrative: This is a 73 year old female that presents to the ER for generalized weakness. Reports today she was unable to get up off the toilet. Over the last week she has noted her blood sugars have been elevated. She lives at assisted living and they wanted to send her in yesterday for evaluation and she refused at that time. Reports she has been having trouble with constipation. Today she was finally able to have a bowel movement and it was dark, although she reports her stools are chronically dark. Reports some abdominal discomfort. Reports abnormally colored urine. Denies fever, chest pain, shortness of breath, cough, vomiting, or dysuria. Related Data Home Medications Medication Instructions Recorded Confirmed triamcinolone acetonide 0.1 % 1 applic topical BID 05/24/22 01/04/23 topical cream zoledronic acid 5 mg/100 mL in ea IV .yearly 11/22/22 01/04/23 mannitol 5 %-water intravenous piggybck (Reclast) Allergies Allergy/AdvReac Type Severity Reaction Status Date / Time estrogens, conjugated Allergy Mild Rash Verified 01/26/23 11:05 [From Prempro] medroxyprogesterone Allergy Mild Rash Verified 01/26/23 11:05 [From Prempro] Review of Systems Review of Systems: CONSTITUTIONAL: Denies fever EYES: Denies visual changes ENT: Denies rhinorrhea, congestion, sore throat CARDIOVASCULAR: Denies chest pain, or edema. RESPIRATORY: Denies cough or dyspnea. GASTROINTESTINAL: Reports abdominal pain. Denies nausea, vomiting, or diarrhea. GENITOURINARY: Denies dysuria NEUROLOGIC: Reports generalized weakness. 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 DKA (diabetic ketoacidosis) Erosive esophagitis With history of esophageal ulcers. Hiatal hernia Hyperlipidemia Hypertension Hypothyroid Macular degeneration Thyroid goiter Type 1 diabetes mellitus Diagnosed in 1993. On oral medication for many years before transitioning to insulin. C-peptide less than 0.1, KHUSHBOO > 50 on labs in March 2016. Vitamin D deficiency Surgical History Surgical History History of bilateral cataract extraction History of cardiac catheterization History of cholecystectomy (2001) History of colonoscopy with polypectomy History of esophageal dilatation (01/2017) For esophageal stricture. History of orthopedic surgery Including surgeries to the right elbow, shoulder, and toe. History of surgical procedure on eye proper using laser For diabetic retinopathy. Family History Family History Father Family history of elevated blood lipids Hypertension Family history of malignant neoplasm of kidney Family history of lung cancer Mother Family history of elevated blood lipids Sibling Family history of elevated blood lipids Family history of thyroid disease Hypertension Family history of diabetes mellitus in first degree relative Social History Social History Social History: Surrogate decision maker: Marisol Cristina (sister) or Alejandra Saeed (daughter). Code status: Full code. Smoking status: Never smoker Second hand tobacco smoke exposure: No Alcohol intake: never Substance use: never Lack of Transportation: No Lack of Food: Never True Current Housing
[2023-01-26 11:24] LABS: Basophils Percent Auto 0.7 % (0.2-1.2); Eosinophils Absolute Auto 0.2 K/mm3 (0-0.3); Hematocrit 40.7 % (37.0-47.0); Hemoglobin 13.2 g/dL (12.0-15.0); Immature Granulocyte Absolute 0.01 K/mm3 (0.00-0.031); Immature Granulocyte Percent A 0.2 % (0-0.5); Lymphocytes Absolute Auto 1.07 K/mm3 (0.9-3.2); Lymphocytes Percent Auto 26.7 % (18.3-44.2); Mean Corpuscular HGB Conc 32.4 g/dl (32-36); Mean Corpuscular Hemoglobin 28.6 pg (26-34); Mean Corpuscular Volume 88.1 fl (80-100); Mean Platelet Volume 11.3 fl (7.4-10.4); Monocytes Absolute Auto 0.4 K/mm3 (0.1-0.6); Monocytes Percent Auto 8.7 % (2.6-8.5); Neutrophils Absolute Auto 2.4 K/mm3 (1.3-6.7); Neutrophils Percent Auto 59.7 % (45.5-73.1); Platelet Count Result 181 k/mm3 (150-375); Red Blood Count 4.62 M/mm3 (4.2-5.4)
[2023-01-26 11:37] LABS: Alanine Aminotransferase 26 U/L (6-35); Albumin Level 3.9 g/dL (3.5-5.1); Alkaline Phosphatase 103 U/L (38-126); Anion Gap 5 mmol/L (8-16); Aspartate Amino Transferase 28 U/L (14-36); Bilirubin,Total 0.6 mg/dL (0.2-1.3); Blood Urea Nitrogen 14 mg/dL (7-17); Calcium 9.2 mg/dL (8.4-10.2); Carbon Dioxide 33 mmol/L (22-30); Chloride 95 mmol/L (98-107); Estimated CRCL calculation 63 ml/min; Estimated Glomerular Filt Rate > 60; Glucose 202 mg/dL (65-110); Magnesium 1.9 mg/dL (1.6-2.3); Phosphorus 2.9 mg/dL (2.5-4.5); Potassium 4.3 mmol/L (3.4-5.0); Sodium 133 mmol/L (137-145)
[2023-01-26 11:40] LABS: Beta-Hydroxybutyrate/Acetoacetate 0.18 mmol/L (0.02-0.27)
[2023-01-26 11:42] LABS: INR 0.9; Prothrombin Time 12.9 Seconds (11.1-14.7)
[2023-01-26 11:43] LABS: NT Pro B Type Natriuretic Pept 186 pg/mL (19.9-100); Partial Thromboplastin Time 31.9 SECONDS (22.3-36.8)
[2023-01-26 12:01] LABS: Influenza A QL RT-PCR Negative (Negative); Influenza B QL RT-PCR Negative (Negative); SARS-CoV-2 RNA PCR Negative (Negative)
[2023-01-26 12:22] LABS: Appearance Urine Clear (Clear); Bilirubin Urine Negative (Negative); Blood Urine Negative (Negative); Color Urine Yellow (Yellow); Glucose Urine UA 2+ mg/dL (Negative); Ketones Urine Negative (Negative); Leukocyte Esterase Ur Negative LEU/UL (Negative); Nitrate Urine Negative (Negative); Protein Urine Negative (Negative); Specific Grav Ur 1.007 (1.001-1.035); Urobilinogen Urine 0.2 mg/dL (<2.0)
[2023-01-26 12:28] LABS: Glucose Point of Care 179 mg/dl (65-105)
[2023-01-26 12:36] LABS: Add Urine Microscopic? NO
== END 2023-01-26 16:49 ==
PROVIDERS: Emergency Medicine; Emergency Provider Physician Assistant; PCP Physician Assistant
DX: R53.1 Weakness (principal); E10.9 Type 1 diabetes mellitus without complications; E78.5 Hyperlipidemia, unspecified; I10 Essential (primary) hypertension; E03.9 Hypothyroidism, unspecified; Z86.73 Personal history of transient ischemic attack (TIA), and cerebral infarction without residual deficits; Z20.822 Contact with and (suspected) exposure to COVID-19
CPT/HCPCS: 36415; 71046; 74177; 80053; 81003; 82010; 82948; 83735; 83880; 84100; 85025; 85610; 85730; 86850; 86900; 86901; 87636; 93005; 99284; Q9967

== ENCOUNTER 2023-01-28 09:27 | Inpatient (IN) | payer MEDICARE, MEDICAID, SELFPAY ==
[2023-01-28] VITALS (14 sets, daily range): BP systolic 121–162; BP diastolic 52–84; PULSE 67–78; RESP 16–18; TEMP 36.1–36.8; O2SAT 95–100; BMI 31.8
--- NOTE | ~2023-01-28 | XR_ITS ---
XR pelvis 1-2V 01/28/2023 10:19 INDICATION: Weakness after fall PROCEDURE: AP pelvis COMPARISON: 07/14/2006 FINDINGS: Fracture, dislocation or subluxation is not identified. The soft tissues appear within norm al limits. No foreign bodies are identified. IMPRESSION: 1: NO ACUTE BONE OR JOINT ABNORMALITY IDENTIFIED. Reviewed, dictated and finalized at location B. R INSTALLATION CREW SUPERVISOR
--- NOTE | ~2023-01-28 | XR_ITS ---
XR chest 2V 01/28/2023 10:19 Indication: Weakness. Procedure: 2 view chest Comparison: Comparison to multiple prior studies sequentially, with oldest reviewed study dated 10/2018. Findings: Bilateral perihilar interstitial infiltrates. No significant effusion. Heart size normal. N o pneumothorax. Impression: 1: Bilateral interstitial infiltrates may represent mild edema or atypical pneumonia. Reviewed, dictated and finalized at location B. ECTOR BOILER Impression: 1: Bilateral interstitial infiltrates may represent mild edema or atypical pneu monia.
--- NOTE | ~2023-01-28 | CT_ITS ---
EXAMINATION: CT brain wo con DATE: 01/29/2023 00:55 INDICATION: Stroke TECHNIQUE: Computed tomography (CT) of the head was performed without intravenous contrast. Sagittal and coronal reconstructions were performed. The mA was adjusted according to patient size. Iterative reconstruction technique was employed. The dose-length product was 605.33 mGy-cm. COMPARISON: head CT dated 02/19/2021 FINDINGS: No acute intracranial hemorrhage, acute infarction or abnormal extra axial fluid collection. There is mild to moderate scattered white matter hypoattenuation consistent with chronic small vessel ischemi c disease. Symmetric prominence of the sulci and ventricles consistent with mild 2 moderate age-appr opriate diffuse cerebral volume loss. No mass/mass effect. The orbits, paranasal sinuses and mastoid air cells are normal. IMPRESSION: 1. No acute intracranial process. 2. Stable appearance of chronic age-related changes including mild to moderate diffuse on loss and mi ld to moderate scattered white matter hypoattenuation consistent with chronic small vessel ischemic d isease. Reviewed, dictated and finalized at location A. ADJUSTMENT INSTRUCTOR IMPRESSION: 1. No acute intracranial process. 2. Stable appearance of chronic age-related changes including mild to moderate diffuse on loss and mild to moderate scattered white matter hypoattenuation con sistent with chronic small vessel ischemic disease.
--- NOTE | ~2023-01-28 | US_ITS ---
EXAMINATION: US venous doppler LE RT DATE: 01/28/2023 11:04 INDICATION: Right lower limb swelling. TECHNIQUE: Grayscale ultrasound images without and with compression and Doppler ultrasound images of the right lower extremity veins were obtained. COMPARISON: Ultrasound 12/20/2022 FINDINGS: The visualized portions of right common femoral vein, profunda (deep) femoral vein, femoral vein, pop liteal vein, peroneal veins, posterior tibial veins, and greater saphenous vein outflow are patent. IMPRESSION: 1. No deep venous thrombosis. Reviewed, dictated and finalized at location A. ORY ASSEMBLER
--- NOTE | 2023-01-28 09:47 | ECG_ITS ---
Measurements Intervals [place] Rate: 67 P: 7 IL: 155 QRS: 9 QRSD: 160 T: -11 QT: 422 QTc: 446 Interpretive Statements SINUS RHYTHM RIGHT BUNDLE BRANCH BLOCK [120+ ms QRS DURATION, UPRIGHT V1, 40+ ms S IN I/aVL/V4/V5/V6] ABNORMAL ECG COMPARED TO ECG 01/26/2023 10:58:49 NO SIGNIFICANT CHANGES Electronically Signed On 01-28-2023 13:41:59 NEUROSCIENTIST by Jose Dyer M.D.
[2023-01-28 09:59] LABS: Basophils Percent Auto 0.8 % (0.2-1.2); Eosinophils Absolute Auto 0.2 K/mm3 (0-0.3); Eosinophils Percent Auto 4.7 % (0-4.4); Hematocrit 39.7 % (37.0-47.0); Hemoglobin 12.9 g/dL (12.0-15.0); Immature Granulocyte Absolute 0.01 K/mm3 (0.00-0.031); Immature Granulocyte Percent A 0.3 % (0-0.5); Lymphocytes Percent Auto 30.2 % (18.3-44.2); Mean Corpuscular HGB Conc 32.5 g/dl (32-36); Mean Corpuscular Hemoglobin 28.6 pg (26-34); Mean Platelet Volume 11.1 fl (7.4-10.4); Monocytes Absolute Auto 0.3 K/mm3 (0.1-0.6); Monocytes Percent Auto 8.2 % (2.6-8.5); Neutrophils Percent Auto 55.8 % (45.5-73.1); Platelet Count Result 182 k/mm3 (150-375); Red Blood Count 4.51 M/mm3 (4.2-5.4); Red Cell Distribution Width 13.3 % (11.5-14.5); White Blood Count 3.6 K/mm3 (4.5-10.0)
[2023-01-28 10:10] LABS: Alanine Aminotransferase 23 U/L (6-35); Alkaline Phosphatase 82 U/L (38-126); Anion Gap 7 mmol/L (8-16); Aspartate Amino Transferase 28 U/L (14-36); Bilirubin,Total 0.6 mg/dL (0.2-1.3); Blood Urea Nitrogen 18 mg/dL (7-17); Calcium 9.4 mg/dL (8.4-10.2); Carbon Dioxide 29 mmol/L (22-30); Chloride 96 mmol/L (98-107); Estimated CRCL calculation 54 ml/min; Estimated Glomerular Filt Rate > 60; Glucose 85 mg/dL (65-110); Potassium 4.1 mmol/L (3.4-5.0); Sodium 132 mmol/L (137-145)
--- NOTE | 2023-01-28 11:03 | PC.NURSE ---
Patient called out reporting her blood sugar was reading at 66. Patient provided with apple juice. EDP made aware.
[2023-01-28 12:32] LABS: Influenza A QL RT-PCR Negative (Negative); Influenza B QL RT-PCR Negative (Negative); RSV RNA, RT-PCR Negative (Negative); SARS-CoV-2 RNA PCR Negative (Negative)
[2023-01-28 13:10] LABS: Appearance Urine Clear (Clear); Bilirubin Urine Negative (Negative); Blood Urine Negative (Negative); Color Urine Yellow (Yellow); Glucose Urine UA Negative (Negative); Ketones Urine Negative (Negative); Leukocyte Esterase Ur Negative LEU/UL (Negative); Nitrate Urine Negative (Negative); Protein Urine Negative (Negative); Specific Grav Ur 1.005 (1.001-1.035); Urobilinogen Urine 0.2 mg/dL (<2.0)
[2023-01-28 13:21] LABS: Add Urine Microscopic? NO
--- NOTE | 2023-01-28 14:02 | ED.WEAKNESS ---
HPI - Weakness General Chief complaint: Weakness Stated complaint: weakness, mult. falls Time Seen by Provider: 01/28/23 09:46 History of Present Illness HPI Narrative: Patient has been seen multiple times recently for frequent falls because she feels like her legs give out comes in today after falling while using her walker, she did not hit her head, she felt her knees giving out and then dropped briefly onto the ground onto her butt. Denies any injuries anywhere, denies any new pain except for pain to her knees. Related Data Home Medications Medication Instructions Recorded Confirmed triamcinolone acetonide 0.1 % 1 applic topical BID 05/24/22 01/04/23 topical cream zoledronic acid 5 mg/100 mL in ea IV .yearly 11/22/22 01/04/23 mannitol 5 %-water intravenous piggybck (Reclast) Allergies Allergy/AdvReac Type Severity Reaction Status Date / Time estrogens, conjugated Allergy Mild Rash Verified 01/28/23 12:11 [From Prempro] medroxyprogesterone Allergy Mild Rash Verified 01/28/23 12:11 [From Prempro] Review of Systems Review of Systems: CONST: No fever. HEENT: No sore throat C/V: No chest pain RESP: No cough GI: No abdominal pain : No dysuria. M/S: Knee pain SKIN: No rash. 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 DKA (diabetic ketoacidosis) Erosive esophagitis With history of esophageal ulcers. Hiatal hernia Hyperlipidemia Hypertension Hypothyroid Macular degeneration Thyroid goiter Type 1 diabetes mellitus Diagnosed in 1993. On oral medication for many years before transitioning to insulin. C-peptide less than 0.1, KHUSHBOO > 50 on labs in March 2016. Vitamin D deficiency Surgical History Surgical History History of bilateral cataract extraction History of cardiac catheterization History of cholecystectomy (2001) History of colonoscopy with polypectomy History of esophageal dilatation (01/2017) For esophageal stricture. History of orthopedic surgery Including surgeries to the right elbow, shoulder, and toe. History of surgical procedure on eye proper using laser For diabetic retinopathy. Family History Family History Father Family history of elevated blood lipids Hypertension Family history of malignant neoplasm of kidney Family history of lung cancer Mother Family history of elevated blood lipids Sibling Family history of elevated blood lipids Family history of thyroid disease Hypertension Family history of diabetes mellitus in first degree relative Social History Social History Social History: Surrogate decision maker: Marisol Cristina (sister) or Alejandra Saeed (daughter). Code status: Full code. Smoking status: Never smoker Second hand tobacco smoke exposure: No Alcohol intake: never Substance use: never Lack of Transportation: No Lack of Food: Never True Current Housing: I Have Housing Concerned About Future Housing: No Difficulty Paying Gas/Electric Bills: No Difficulty Paying for Meds: No Currently Unemployed: No Education: High School Diploma/GED Difficulty w/ Childcare or Family Care: No Living arrangements: assisted living Additional living arrangements comments: Lives in assisted living at [facility]. 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 Spiritual care concerns: No Exam Narrative: EXAMINATION OF ORGAN SYSTEMS/BODY AREAS: [place]
--- NOTE | 2023-01-28 16:11 | PCCCNOTE ---
Pt in ED for repeated falls. PT/OT eval done in ED and recommends SNF rehab. Pt currently resides at [facility] and is Min x2 assist which is beyond there level of care. Referral faxed to [facility], [facility], [facility] and [facility] at [phone]. Awaiting response.
--- NOTE | 2023-01-28 18:30 | ADMGEN ---
This patient, Kyle Sanches, was admitted to Medical Room [facility]- at 1820. Patient/family oriented to hospital policies and general routines including ID bracelet, bed and alarms, visiting hours, pain management, procedures, bathroom and other care routines, personal items, smoking policy, room service/diet, and visiting hours. Information on how to activate the Rapid Response Team has been discussed. Patient/Family are encouraged to report perceived risks to care and to ask questions if they do not understand what they are told or what they should do.
--- NOTE | 2023-01-28 20:24 | PM.IMHP ---
H&P: HPI History of Present Illness Date/Time: 01/28/23 20:24 Chief Complaint: Frequent Falls Narrative: 73 y/o F presents here with multiple falls with PMH of CVA, GERD, Anx/Dep, neuropathy, HLD, HTN, DM1, hypothyroidism, and vitamin D deficiency. Patient initially seen on 01/26 for generalized weakness - lab work, viral PCR UA CXR, CT abdomen and pelvis without acute findings are significant abnormalities. Patient was then discharged. Returned today due to recurrent generalized weakness. For states that she has fallen multiple times in the last week and twice today. if initial fall this morning occurred while patient was walking to get some water in her kitchen, while she was reaching for the water she fell down. States that it felt like her right leg gave out from underneath there. She denies sustaining injuries after this fall. Did not hit her head or lose consciousness. Second fall occurred while she was walking to her recliner. Right leg again gave out and patient fell to the floor without acute injury, syncope or loss of consciousness. Aide from assisted living was present and assisted her to her recliner. She reports compliance with walker use at home. She denies any current back or hip pain. Endorses chronic neuropathy at baseline that waxes and wanes. Denies any new dysarthria, facial droop, confusion, upper extremity weakness, or changes in speech. 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 DKA (diabetic ketoacidosis) Erosive esophagitis With history of esophageal ulcers. Hiatal hernia Hyperlipidemia Hypertension Hypothyroid Macular degeneration Thyroid goiter Type 1 diabetes mellitus Diagnosed in 1993. On oral medication for many years before transitioning to insulin. C-peptide less than 0.1, KHUSHBOO > 50 on labs in March 2016. Vitamin D deficiency Surgical History Surgical History History of bilateral cataract extraction History of cardiac catheterization History of cholecystectomy (2001) History of colonoscopy with polypectomy History of esophageal dilatation (01/2017) For esophageal stricture. History of orthopedic surgery Including surgeries to the right elbow, shoulder, and toe. History of surgical procedure on eye proper using laser For diabetic retinopathy. Family History Family History Father Family history of elevated blood lipids Hypertension Family history of malignant neoplasm of kidney Family history of lung cancer Mother Family history of elevated blood lipids Sibling Family history of elevated blood lipids Family history of thyroid disease Hypertension Family history of diabetes mellitus in first degree relative Social History Social History Social History: Surrogate decision maker: Marisol Cristina (sister) or Alejandra Saeed (daughter). Code status: Full code. Smoking status: Never smoker Second hand tobacco smoke exposure: No Alcohol intake: never Substance use: never Substance use type: does not use Lack of Transportation: No Lack of Food: Never True Current Housing: I Have Housing Concerned About Future Housing: No Difficulty Paying Gas/Electric Bills: No Difficulty Paying for Meds: No Currently Unemployed: No Education: High School Diploma/GED Difficulty w/ Childcare or Family Care: No Living arrangements: assisted living Additional living arrangements
[2023-01-29] VITALS (8 sets, daily range): BP systolic 128–165; BP diastolic 51–67; PULSE 66–79; RESP 15–18; TEMP 36.2–36.6; O2SAT 92–96
[2023-01-29] MEDS: LEVOTHYROXINE SODIUM 125 MCG TABLET PO (05:41)
[2023-01-29 06:21] LABS: NT Pro B Type Natriuretic Pept 98 pg/mL (19.9-100)
[2023-01-29 07:41] LABS: Hemoglobin A1C 8.1 % (<5.7)
--- NOTE | 2023-01-29 08:02 | PM.IMPN ---
Progress Note: A&P Assessment and Plan (1) Generalized weakness: Code(s): R53.1 - Weakness Status: Acute Assessment and Plan: No osseous abnormality seen on abdomen pelvis CT performed on 01/26. CXR done today shows bilateral interstitial infiltrates may represent mild edema or atypical pneumonia. given normal WBC (3.6) will assess BNP. Pelvic x-ray without acute abnormality. repeat US of RLE done - no DVT. UA unremarkable. 01/29: BNP normal at 98. XR on admission compared with 01/26 actually looks better. Check orthostatic blood pressure today. She states she has a chronic dry cough at baseline. No sputum production, fever, chills, or chest pressure/pain. No treatment for pneumonia warranted at this time. Nursing reports three loose stools today. Patient reported constipation but reported a bowel movement this morning. No abdominal pain, no leukocytosis. Will obtain c-diff stool just in case giving her residential living and trial imodium. (2) Falls frequently: Code(s): R29.6 - Repeated falls Status: Acute Assessment and Plan: RLE mildly weaker compared to LLE. no other focal deficits on exam, low suspicion for stroke however will obtain repeat head CT to r/o. no significant abnormalities on lab work. using walker consistently, currently living at assisted living with moderate amount of assistance at the facility. PT/OT to to eval and treat. care coordination has been consulted, unable to place from ED. patient amendable to placement at SNF or attending rehab. 01/29:PT/OT consulted. Patient may need SNF vs rehab. Recommendations are appreciated. (3) Type 1 diabetes mellitus: Qualifiers: Diabetes mellitus complication detail: without coma Diabetes mellitus complication status: with hypoglycemia Qualified Code(s): E10.649 - Type 1 diabetes mellitus with hypoglycemia without coma Code(s): E10.9 - Type 1 diabetes mellitus without complications Status: Acute Assessment and Plan: Hypoglycemia protocol, POC blood glucose ACHS, home medications held, basal insulin ordered, correct regimen ordered - low dose TIDWM and HS, A1C ordered 01/29: A1c 8.1%. SSI with lants and hypoglycemia protocol. Fasting blood glucose was 85. (4) Hypothyroidism: Qualifiers: Hypothyroidism type: acquired Qualified Code(s): E03.9 - Hypothyroidism, unspecified Code(s): E03.9 - Hypothyroidism, unspecified Status: Acute Assessment and Plan: continue home Synthroid. last TSH 1.4 on 08/12/21. 01/29: TSH normal. Continue with home levothyroxine dose. Plan Home Meds/Chronic Conditions - home medications reviewed and resumed as appropriate. Diet: heart healthy GI Prophylaxis: omeprazole PO DVT Prophylaxis: SCDs Lines: pIV Code Status: Full Code Subjective Date/time seen: 01/29/23 08:02 Interval history: HPI obtained from the chart, 73 y/o F presents here with multiple falls with PMH of CVA, GERD, Anx/Dep, neuropathy, HLD, HTN, DM1, hypothyroidism, and vitamin D deficiency. Patient initially seen on 01/26 for generalized weakness -? lab work, viral PCR UA CXR, CT abdomen and pelvis without acute findings are significant abnormalities.? Patient was then discharged. ? Returned today due to recurrent generalized weakness.? For states that she has fallen multiple times in the last week and twice today.? if initial fall this morning occurred while patient was walking to get some water in her kitchen, while she was reaching for the water she fell down.? States that it felt like her right leg gave out from underneath there.? She denies sustaining injuries after this fall.? Did not hit her head or lose consciousness.? Second fall occurred while she was walking to her recliner.? Right leg again gave out and patient fell to the floor without acute injury, syncope or loss of consciousness. ? Aide from assisted living was present and assisted her to her recliner.?
[2023-01-29] MEDS: busPIRone HCL 2.5 MG TABLET PO ×2 (08:19→20:53)
[2023-01-29] MEDS: FERROUS SULFATE 325 MG TABLET DR BY MOUTH (08:20)
[2023-01-29] MEDS: PRAVASTATIN SODIUM 20 MG TABLET PO (08:20)
[2023-01-29] MEDS: LORATADINE 10 MG TABLET PO (08:21)
[2023-01-29] MEDS: SERTRALINE HCL 50 MG TABLET 100 MG PO (08:21)
[2023-01-29] MEDS: MAGNESIUM OXIDE 400 MG TABLET PO (08:21)
[2023-01-29] MEDS: lisinopriL 10 MG TABLET PO (08:21)
[2023-01-29] MEDS: PANTOPRAZOLE 40 MG TABLET PO ×2 (08:21→16:11)
[2023-01-29] MEDS: PREGABALIN (*CRX) 75 MG CAPSULE 150 MG PO ×3 (08:21→16:11)
[2023-01-29] MEDS: CHOLECALCIFEROL 1,000 UNITS TABLET 1000 UNITS PO (08:21)
[2023-01-29] MEDS: busPIRone HCL 5 MG TABLET PO ×2 (08:21→20:53)
[2023-01-29] MEDS: FLUTICASONE PROPIONATE 0.05% NA SPR 16 GM BTL (*BKC) 2 SPRAY NASAL (08:24)
[2023-01-29] MEDS: ENOXAPARIN 40 MG/0.4 ML SYRINGE SUB-Q (08:25)
[2023-01-29] MEDS: MICONAZOLE NITRATE 2% CREAM 30 GM TUBE 1 APPLIC TOPICAL (08:27)
[2023-01-29] MEDS: INSULIN ASPART (*BKC) 100 UNITS/ML SUB-Q ×4 (08:28→20:54)
[2023-01-29] MEDS: BETHANECHOL CHLORIDE 25 MG TABLET PO ×2 (08:32→16:11)
[2023-01-29 08:50] LABS: Glucose Point of Care 247 mg/dl (65-105)
[2023-01-29 12:04] LABS: Glucose Point of Care 264 mg/dl (65-105)
[2023-01-29 12:12] LABS: Toxigenic C. Diff NEGATIVE (NEGATIVE)
[2023-01-29] MEDS: LOPERAMIDE HCL 2 MG CAPSULE PO (12:30)
[2023-01-29 17:21] LABS: Glucose Point of Care 270 mg/dl (65-105)
[2023-01-29] MEDS: INSULIN GLARGINE (*BKC) 100 UNITS/ML 12 UNITS SUB-Q (20:54)
[2023-01-29 21:36] LABS: Glucose Point of Care 281 mg/dl (65-105)
[2023-01-30] MEDS: ACETAMINOPHEN 500 MG TABLET PO ×2 (04:44→21:29)
[2023-01-30 05:16] LABS: Basophils Percent Auto 1.2 % (0.2-1.2); Eosinophils Absolute Auto 0.2 K/mm3 (0-0.3); Hematocrit 39.6 % (37.0-47.0); Hemoglobin 12.9 g/dL (12.0-15.0); Immature Granulocyte Absolute 0.02 K/mm3 (0.00-0.031); Immature Granulocyte Percent A 0.6 % (0-0.5); Lymphocytes Absolute Auto 0.97 K/mm3 (0.9-3.2); Lymphocytes Percent Auto 29.6 % (18.3-44.2); Mean Corpuscular HGB Conc 32.6 g/dl (32-36); Mean Corpuscular Hemoglobin 28.5 pg (26-34); Mean Corpuscular Volume 87.6 fl (80-100); Mean Platelet Volume 11.5 fl (7.4-10.4); Monocytes Absolute Auto 0.3 K/mm3 (0.1-0.6); Monocytes Percent Auto 9.5 % (2.6-8.5); Neutrophils Absolute Auto 1.7 K/mm3 (1.3-6.7); Neutrophils Percent Auto 52.1 % (45.5-73.1); Platelet Count Result 165 k/mm3 (150-375); Red Blood Count 4.52 M/mm3 (4.2-5.4); Red Cell Distribution Width 13.1 % (11.5-14.5); White Blood Count 3.3 K/mm3 (4.5-10.0)
[2023-01-30 05:37] LABS: Anion Gap 6 mmol/L (8-16); Blood Urea Nitrogen 11 mg/dL (7-17); Carbon Dioxide 30 mmol/L (22-30); Chloride 99 mmol/L (98-107); Estimated CRCL calculation 58 ml/min; Estimated Glomerular Filt Rate > 60; Glucose 166 mg/dL (65-110); Potassium 3.7 mmol/L (3.4-5.0); Sodium 135 mmol/L (137-145)
[2023-01-30] MEDS: LEVOTHYROXINE SODIUM 125 MCG TABLET PO (05:50)
[2023-01-30 06:00] VITALS: BP 157/75; PULSE 79; RESP 17; TEMP 36.3; O2SAT 93
--- NOTE | 2023-01-30 07:23 | PM.IMPN ---
Progress Note: A&P Assessment and Plan (1) Generalized weakness: Code(s): R53.1 - Weakness Status: Acute Assessment and Plan: No osseous abnormality seen on abdomen pelvis CT performed on 01/26. CXR done today shows bilateral interstitial infiltrates may represent mild edema or atypical pneumonia. given normal WBC (3.6) will assess BNP. Pelvic x-ray without acute abnormality. repeat US of RLE done - no DVT. UA unremarkable. 01/29: BNP normal at 98. XR on admission compared with 01/26 actually looks better. Check orthostatic blood pressure today. She states she has a chronic dry cough at baseline. No sputum production, fever, chills, or chest pressure/pain. No treatment for pneumonia warranted at this time. Nursing reports three loose stools today. Patient reported constipation but reported a bowel movement this morning. No abdominal pain, no leukocytosis. Will obtain c-diff stool just in case giving her residential living and trial imodium. 01/30:C-diff was negative. Imodium prn. Orthostatic blood pressures were negative. (2) Falls frequently: Code(s): R29.6 - Repeated falls Status: Acute Assessment and Plan: RLE mildly weaker compared to LLE. no other focal deficits on exam, low suspicion for stroke however will obtain repeat head CT to r/o. no significant abnormalities on lab work. using walker consistently, currently living at assisted living with moderate amount of assistance at the facility. PT/OT to to eval and treat. care coordination has been consulted, unable to place from ED. patient amendable to placement at SNF or attending rehab. 01/29:PT/OT consulted. Patient may need SNF vs rehab. Recommendations are appreciated. 01/30: OT eval completed, picked up for 3-5 days/wk for 2 weeks. PT eval pending. (3) Type 1 diabetes mellitus: Qualifiers: Diabetes mellitus complication detail: without coma Diabetes mellitus complication status: with hypoglycemia Qualified Code(s): E10.649 - Type 1 diabetes mellitus with hypoglycemia without coma Code(s): E10.9 - Type 1 diabetes mellitus without complications Status: Acute Assessment and Plan: Hypoglycemia protocol, POC blood glucose ACHS, home medications held, basal insulin ordered, correct regimen ordered - low dose TIDWM and HS, A1C ordered 01/29: A1c 8.1%. SSI with lants and hypoglycemia protocol. Fasting blood glucose was 85. 12/: Blood glucose 240-280's. Would like tighter glucose control. Increased lantus dose to 15 units at HS. (4) Hypothyroidism: Qualifiers: Hypothyroidism type: acquired Qualified Code(s): E03.9 - Hypothyroidism, unspecified Code(s): E03.9 - Hypothyroidism, unspecified Status: Acute Assessment and Plan: continue home Synthroid. last TSH 1.4 on 08/12/21. 122: TSH normal. Continue with home levothyroxine dose. Plan Home Meds/Chronic Conditions - home medications reviewed and resumed as appropriate. Diet: heart healthy GI Prophylaxis: omeprazole PO DVT Prophylaxis: SCDs Lines: pIV Code Status: Full Code Subjective Date/time seen: 01/30/23 07:23 Interval history: HPI obtained from the chart, 73 y/o F presents here with multiple falls with PMH of CVA, GERD, Anx/Dep, neuropathy, HLD, HTN, DM1, hypothyroidism, and vitamin D deficiency. Patient initially seen on 01/26 for generalized weakness -? lab work, viral PCR UA CXR, CT abdomen and pelvis without acute findings are significant abnormalities.? Patient was then discharged. ? Returned today due to recurrent generalized weakness.? For states that she has fallen multiple times in the last week and twice today.? if initial fall this morning occurred while patient was walking to get some water in her kitchen, while she was reaching for the water she fell down.? States that it felt like her right leg gave out from underneath there.? She denies sustaining injuries after this fall.? Did not hit her
[2023-01-30 07:38] LABS: Glucose Point of Care 153 mg/dl (65-105)
[2023-01-30] MEDS: SERTRALINE HCL 50 MG TABLET 100 MG PO (08:40)
[2023-01-30] MEDS: CHOLECALCIFEROL 1,000 UNITS TABLET 1000 UNITS PO (08:40)
[2023-01-30] MEDS: PANTOPRAZOLE 40 MG TABLET PO ×2 (08:40→16:39)
[2023-01-30] MEDS: PRAVASTATIN SODIUM 20 MG TABLET PO (08:40)
[2023-01-30] MEDS: PREGABALIN (*CRX) 75 MG CAPSULE 150 MG PO ×3 (08:40→16:39)
[2023-01-30] MEDS: FERROUS SULFATE 325 MG TABLET DR BY MOUTH (08:41)
[2023-01-30] MEDS: lisinopriL 10 MG TABLET PO (08:41)
[2023-01-30] MEDS: busPIRone HCL 2.5 MG TABLET PO ×2 (08:41→20:15)
[2023-01-30] MEDS: LORATADINE 10 MG TABLET PO (08:41)
[2023-01-30] MEDS: ENOXAPARIN 40 MG/0.4 ML SYRINGE SUB-Q (08:41)
[2023-01-30] MEDS: busPIRone HCL 5 MG TABLET PO ×2 (08:41→20:15)
[2023-01-30] MEDS: MAGNESIUM OXIDE 400 MG TABLET PO (08:41)
[2023-01-30] MEDS: BETHANECHOL CHLORIDE 25 MG TABLET PO ×2 (08:41→16:39)
[2023-01-30 10:35] VITALS: O2SAT 95
[2023-01-30 11:42] LABS: Glucose Point of Care 218 mg/dl (65-105)
[2023-01-30] MEDS: INSULIN ASPART (*BKC) 100 UNITS/ML SUB-Q ×3 (12:02→21:24)
[2023-01-30 14:00] VITALS: BP 92/76; PULSE 77; RESP 14; TEMP 36.5; O2SAT 96
[2023-01-30 16:57] LABS: Glucose Point of Care 222 mg/dl (65-105)
[2023-01-30] MEDS: INSULIN GLARGINE (*BKC) 100 UNITS/ML 15 UNITS SUB-Q (21:23)
[2023-01-30 21:42] LABS: Glucose Point of Care 231 mg/dl (65-105)
[2023-01-30 22:00] VITALS: BP 125/48; PULSE 68; RESP 20; TEMP 36; O2SAT 92
[2023-01-31 03:29] VITALS: BP 140/60; PULSE 71; RESP 20; TEMP 36; O2SAT 92
[2023-01-31] MEDS: LEVOTHYROXINE SODIUM 125 MCG TABLET PO (05:18)
[2023-01-31 08:50] LABS: Glucose Point of Care 182 mg/dl (65-105)
[2023-01-31 09:02] VITALS: BP 143/61; PULSE 70; O2SAT 95
[2023-01-31] MEDS: PANTOPRAZOLE 40 MG TABLET PO (09:06)
[2023-01-31] MEDS: busPIRone HCL 5 MG TABLET PO (09:06)
[2023-01-31] MEDS: busPIRone HCL 2.5 MG TABLET PO (09:06)
[2023-01-31] MEDS: LORATADINE 10 MG TABLET PO (09:07)
[2023-01-31] MEDS: PREGABALIN (*CRX) 75 MG CAPSULE 150 MG PO ×2 (09:07→12:49)
[2023-01-31] MEDS: lisinopriL 10 MG TABLET PO (09:07)
[2023-01-31] MEDS: CHOLECALCIFEROL 1,000 UNITS TABLET 1000 UNITS PO (09:07)
[2023-01-31] MEDS: BETHANECHOL CHLORIDE 25 MG TABLET PO (09:07)
[2023-01-31] MEDS: MAGNESIUM OXIDE 400 MG TABLET PO (09:07)
[2023-01-31] MEDS: FERROUS SULFATE 325 MG TABLET DR BY MOUTH (09:08)
[2023-01-31] MEDS: SERTRALINE HCL 50 MG TABLET 100 MG PO (09:08)
[2023-01-31] MEDS: PRAVASTATIN SODIUM 20 MG TABLET PO (09:08)
[2023-01-31] MEDS: FLUTICASONE PROPIONATE 0.05% NA SPR 16 GM BTL (*BKC) 2 SPRAY NASAL (09:09)
[2023-01-31] MEDS: MICONAZOLE NITRATE 2% CREAM 30 GM TUBE 1 APPLIC TOPICAL (09:09)
[2023-01-31] MEDS: ENOXAPARIN 40 MG/0.4 ML SYRINGE SUB-Q (09:09)
--- NOTE | 2023-01-31 11:22 | PM.DS ---
DS: Admitting Diagnosis Discharge Date 01/31/2023 Admitting Diagnosis Generalized weakness, frequent falls, type 1 diabetes mellitus, hypothyroidism DS: Discharge Diagnosis Discharge Diagnosis (1) Generalized weakness: Code(s): R53.1 - Weakness Status: Acute (2) Falls frequently: Code(s): R29.6 - Repeated falls Status: Acute (3) Type 1 diabetes mellitus: Qualifiers: Diabetes mellitus complication status: with hypoglycemia Diabetes mellitus complication detail: without coma Qualified Code(s): E10.649 - Type 1 diabetes mellitus with hypoglycemia without coma Code(s): E10.9 - Type 1 diabetes mellitus without complications Status: Acute (4) Hypothyroidism: Qualifiers: Hypothyroidism type: acquired Qualified Code(s): E03.9 - Hypothyroidism, unspecified Code(s): E03.9 - Hypothyroidism, unspecified Status: Acute DS: Summary Hospital Course Reason for hospitalization: Patient admitted for multiple falls and generalized weakness Hospital Course: This is a 73-year-old female patient who was admitted to the hospital due to generalized weakness resulting in multiple falls over the course of the last 1 week. She stated that legs just giving out from underneath. She denied any dizziness or syncope denied injuring herself. Patient was admitted and worked with PT and OT throughout hospitalization. She progressed stronger each day. No further injuries or neurologic causes were noted during hospital stay. Initially PT OT was recommending SNF placement however on day of discharge she ambulated into the hallway in to the nurse's station and and was participating fully in all exercises. Case Management contacted [facility] and they stated that they would work with home therapy in her apartment and that patient could return today. Status at Discharge Cognitive/behavioral status at discharge: Awake alert oriented and pleasant Functional status at discharge: uses cane/walker Overall status at discharge: patient is progressing back to baseline Time Spent with Patient Time attestation: Total time spent providing and/or coordinating discharge services: 37 minutes Time spent: Greater than 30 minutes Exam Narrative: General: well appearing, well developed, well nourished, appears stated age. HEENT: normocephalic, atraumatic. Mucous membranes moist. EOMI, PERRLA, bilateral sclera anicteric, no conjunctival injection. Neck supple without JVD, lymphadenopathy, or bruit. Respiratory: clear to auscultation bilaterally. No rales/rhonchi/wheezes. Cardiovascular: Regular rate and rhythm, normal S1-S2 upon auscultation. No murmurs, rubs, or clicks. PMI is nondisplaced, capillary re-fill less than 3 second. Abdomen: Soft, round, no pulsatile masses, non-distended and non-tender. No rebound, no guarding. No CVA tenderness, no hepatosplenomegaly. Bowel sounds present to all four quadrants. Extremities: No cyanosis, clubbing, or edema present. Pulses are palpable 2/2. Active ROM to all four extremities. Neuro: Alert and orientated x 4. PERRLA. Cranial nerves 2-12 intact without focal deficit. Skin: Warm, dry, and intact, without rash, erythema, or lesion. Lines: PIV Incisions: NA Psych: pleasant, cooperative, normal speech, normal affect, no hallucinations, no dysarthria DS: Data Data Completed and Pending Completed studies during hospitalization: Chest x-ray, pelvis x-ray, venous Doppler, head CT Labs on day of discharge: Labs from last 24 hours 01/31/23 01/30/23 01/30/23 08:42 21:19 16:38 POC Capillary Glucose 182 H 231 H 222 H 01/30/23 11:34 POC Capillary Glucose 218 H Discharge Plan Discharge Attending physician on discharge: Jose Doyle Discharging Clinician: Alli Morley Anticipated Discharge Date/Time: 01/31/23 11:30 Patient Disposition: [facility] Alf/Asst Living Activity: as tolerated and other - see disc
[2023-01-31 11:59] LABS: Glucose Point of Care 274 mg/dl (65-105)
[2023-01-31] MEDS: INSULIN ASPART (*BKC) 100 UNITS/ML SUB-Q (12:14)
== END 2023-01-31 12:55 | DRG 948 ==
LOC: ANHED 17:02 → ANH2MED 18:27
PROVIDERS: Nurse Practitioner Acute Care; Physician Assistant; Student in an Organized Health Care Education/Training Program; Admitting Provider Internal Medicine; Emergency Provider Emergency Medicine; PCP Physician Assistant; Visit Provider Nurse Practitioner
DX: R53.1 Weakness (principal); R29.6 Repeated falls; E10.649 Type 1 diabetes mellitus with hypoglycemia without coma; E10.42 Type 1 diabetes mellitus with diabetic polyneuropathy; E10.319 Type 1 diabetes mellitus with unspecified diabetic retinopathy without macular edema; E03.9 Hypothyroidism, unspecified; Z20.822 Contact with and (suspected) exposure to COVID-19; K21.9 Gastro-esophageal reflux disease without esophagitis; E78.5 Hyperlipidemia, unspecified; I10 Essential (primary) hypertension; H35.30 Unspecified macular degeneration; E55.9 Vitamin D deficiency, unspecified; K44.9 Diaphragmatic hernia without obstruction or gangrene; F41.8 Other specified anxiety disorders; H54.8 Legal blindness, as defined in USA; Z86.73 Personal history of transient ischemic attack (TIA), and cerebral infarction without residual deficits; Z98.42 Cataract extraction status, left eye; Z98.41 Cataract extraction status, right eye; Z90.49 Acquired absence of other specified parts of digestive tract
CPT/HCPCS: 36415; 70450; 71046; 72170; 74177; 80048; 80053; 81003; 82010; 82948; 83036; 83735; 83880; 84100; 84443; 85025; 85610; 85730; 86850; 86900; 86901; 87493; 87636; 87637; 93005; 93971; 97110; 97116; 97161; 97165; 97530; 97535; 99284; 99285; A9270; J1650; J1815; Q9967

== ENCOUNTER 2023-05-26 06:49 | Outpatient (CLI) | payer MEDICARE, MEDICAID, SELFPAY ==
[2023-05-26 07:59] LABS: Alanine Aminotransferase 28 U/L (6-35); Albumin Level 4.2 g/dL (3.5-5.1); Alkaline Phosphatase 72 U/L (38-126); Anion Gap 1 mmol/L (4-12); Aspartate Amino Transferase 34 U/L (14-36); Bilirubin,Total 0.6 mg/dL (0.2-1.3); Blood Urea Nitrogen 14 mg/dL (7-17); Calcium 9.6 mg/dL (8.4-10.2); Carbon Dioxide 32 mmol/L (22-30); Chloride 103 mmol/L (98-107); Cholesterol 193 mg/dL (0-200); Estimated Glomerular Filt Rate > 60; Glucose 134 mg/dL (65-110); HDL Direct 81 mg/dL; Sodium 136 mmol/L (137-145); Triglycerides 74 mg/dL (<150)
[2023-05-26 08:00] LABS: LDL Cholesterol Direct 82 mg/dL
[2023-05-26 08:12] LABS: Potassium 4.1 mmol/L (3.4-5.0)
[2023-05-26 09:02] LABS: Free T4 Free Thyroxine 1.12 ng/mL (0.78-2.19)
[2023-05-26 14:52] LABS: Creatinine Urine 62.9 mg/dL
[2023-05-26 16:17] LABS: MALB Creatinine Ratio < 9.5 mg/g (0-30); Microalbumin Urine Random < 6.0 mg/L (0-16.7)
== END 2023-05-26 06:50 | disposition home or self-care (01) ==
LOC: ANHLAB 06:54
PROVIDERS: PCP Physician Assistant; Visit Provider Internal Medicine Endocrinology, Diabetes & Metabolism
DX: R79.89 Other specified abnormal findings of blood chemistry (principal); M81.0 Age-related osteoporosis without current pathological fracture; E03.9 Hypothyroidism, unspecified; E10.649 Type 1 diabetes mellitus with hypoglycemia without coma
CPT/HCPCS: 36415; 80053; 80061; 82043; 82306; 82607; 84439; 84443

== ENCOUNTER 2023-06-20 05:47 | Emergency (ER) | payer MEDICARE, MEDICAID, SELFPAY ==
[2023-06-20] VITALS (8 sets, daily range): BP systolic 107–148; BP diastolic 45–76; PULSE 62–78; RESP 13–20; TEMP 36.6; O2SAT 84–100
--- NOTE | ~2023-06-20 | CT_ITS ---
EXAMINATION: CT abdomen pelvis w con DATE: 06/20/2023 07:53 INDICATION: Right upper quadrant abdominal pain. TECHNIQUE: Computed tomography (CT) of the abdomen and pelvis was performed with 100 mL Omnipaque 350 intravenous contrast. Automated exposure control and iterative reconstruction technique were employe d. The dose-length product was 912.11 mGy-cm. COMPARISON: CT abdomen and pelvis 01/26/2023 FINDINGS: The visualized portions of the lung bases demonstrate mild atelectasis. No pleural effusion . The heart size is normal. No pericardial effusion. There is a moderate-sized sliding hiatal hernia. The liver, spleen, pancreas, and adrenal glands are normal. There are changes of cholecystectomy. Th ere is cortical thinning of the kidneys. There are no dilated loops of bowel. The appendix is normal. Aortic atherosclerosis is noted. There are no pathologically enlarged lymph nodes. There is no free intraperitoneal fluid. There is subcutaneous scarring in anterior abdominal wall. There is severe tho racic spondylosis and mild lumbar spondylosis. IMPRESSION: 1. Moderate-sized sliding hiatal hernia. Reviewed, dictated and finalized at location E.
--- NOTE | ~2023-06-20 | XR_ITS ---
EXAMINATION: XR chest 1V portable DATE: 06/20/2023 07:19 INDICATION: Right upper quadrant abdominal pain. Shortness of breath. TECHNIQUE: A single frontal view of the chest was obtained. COMPARISON: Chest 2 views 01/28/2023, CT abdomen and pelvis 01/26/2023 FINDINGS: There is mild atelectasis at the lung bases. No pleural effusion or pneumothorax. The heart size is normal. There is a moderate-sized hiatal hernia. IMPRESSION: 1. Mild atelectasis at the lung bases. 2. Moderate-sized hiatal hernia. Reviewed, dictated and finalized at location E.
--- NOTE | 2023-06-20 06:00 | ED.ABDPAIN ---
HPI - Abdominal Pain General Chief Complaint: Abdominal Pain <French Ho MD - Last Filed: 06/20/23 06:36> Stated Complaint: ruq pain <French Ho MD - Last Filed: 06/20/23 06:36> Time Seen by Provider: 06/20/23 05:56 <French Ho MD - Last Filed: 06/20/23 06:36> History of Present Illness HPI narrative: Patient's aunt have year old female presents emergency department with chief complaint of right upper quadrant abdominal pain. Patient reports that on Tuesday she was being helped up into the car the patient states she was pulled up from the wheelchair and started having pain in the right upper quadrant. EMS was called today and the patient was given 100 mics of fentanyl upon arrival to the emergency department the patient's oxygen saturations had decreased to 84% the patient was placed on oxygen patient reports no chest pain denies diaphoresis reports that she has felt weaker due to the pain <French Ho MD - Last Filed: 06/20/23 06:36> Related Data Home Medications: Home Medications Medication Instructions Recorded Confirmed zoledronic acid 5 mg/100 mL in 5 ea IV .yearly 11/22/22 06/14/23 mannitol 5 %-water intravenous piggybck (Reclast) <French Ho MD - Last Filed: 06/20/23 06:36> Allergies/Adverse Reactions: Allergies Allergy/AdvReac Type Severity Reaction Status Date / Time estrogens, conjugated Allergy Mild Rash Verified 06/14/23 11:38 [From Prempro] medroxyprogesterone Allergy Mild Rash Verified 06/14/23 11:38 [From Prempro] <French Ho MD - Last Filed: 06/20/23 06:36> Review of Systems Review of Systems: A 10 system review of systems was completed on the patient and is negative except for what is stated in the HPI. Nursing and ancillary documentation was reviewed. <French Ho MD - Last Filed: 06/20/23 06:36> PMFSH Past Medical History Medical History: Medical History Anxiety Cerebrovascular accident 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 DKA (diabetic ketoacidosis) Erosive esophagitis With history of esophageal ulcers. Hiatal hernia Hyperlipidemia Hypertension Hypothyroid Macular degeneration Thyroid goiter Type 1 diabetes mellitus Diagnosed in 1993. On oral medication for many years before transitioning to insulin. C-peptide less than 0.1, KHUSHBOO > 50 on labs in March 2016. Vitamin D deficiency <French Ho MD - Last Filed: 06/20/23 06:36> Surgical History Surgical History: Surgical History History of bilateral cataract extraction History of cardiac catheterization History of cholecystectomy (2001) History of colonoscopy with polypectomy History of esophageal dilatation (01/2017) For esophageal stricture. History of orthopedic surgery Including surgeries to the right elbow, shoulder, and toe. History of surgical procedure on eye proper using laser For diabetic retinopathy. <French Ho MD - Last Filed: 06/20/23 06:36> Family History Family History: Family History Father Family history of elevated blood lipids Hypertension Family history of malignant neoplasm of kidney Family history of lung cancer Mother Family history of elevated blood lipids Sibling Family history of elevated blood lipids Family history of thyroid disease Hypertension Family history of diabetes mellitus in first degree relative <French Ho MD - Last Filed: 06/20/23 06:36> Social History Social History: Social History (Reviewed
[2023-06-20 06:58] LABS: Basophils Percent Auto 1.1 % (0.2-1.2); Eosinophils Absolute Auto 0.2 K/mm3 (0-0.3); Eosinophils Percent Auto 6.4 % (0-4.4); Hematocrit 37.5 % (37.0-47.0); Hemoglobin 12.3 g/dL (12.0-15.0); Immature Granulocyte Absolute 0.01 K/mm3 (0.00-0.031); Immature Granulocyte Percent A 0.4 % (0-0.5); Lymphocytes Absolute Auto 0.76 K/mm3 (0.9-3.2); Lymphocytes Percent Auto 26.9 % (18.3-44.2); Mean Corpuscular HGB Conc 32.8 g/dl (32-36); Mean Corpuscular Hemoglobin 29.1 pg (26-34); Mean Corpuscular Volume 88.7 fl (80-100); Mean Platelet Volume 11.3 fl (7.4-10.4); Monocytes Absolute Auto 0.3 K/mm3 (0.1-0.6); Monocytes Percent Auto 11.7 % (2.6-8.5); Neutrophils Absolute Auto 1.5 K/mm3 (1.3-6.7); Neutrophils Percent Auto 53.5 % (45.5-73.1); Platelet Count Result 162 k/mm3 (150-375); Red Blood Count 4.23 M/mm3 (4.2-5.4); White Blood Count 2.8 K/mm3 (4.5-10.0)
[2023-06-20 07:09] LABS: Lactic Acid Reflex 0.7 mmol/L (0.7-2.0); Partial Thromboplastin Time 33.3 Seconds (22.3-36.8); Prothrombin Time 13.3 Seconds (11.1-14.7)
[2023-06-20 07:10] LABS: Alanine Aminotransferase 24 U/L (6-35); Albumin Level 3.7 g/dL (3.5-5.1); Alkaline Phosphatase 89 U/L (38-126); Anion Gap -1 mmol/L (4-12); Aspartate Amino Transferase 27 U/L (14-36); Bilirubin,Total 0.5 mg/dL (0.2-1.3); Blood Urea Nitrogen 14 mg/dL (7-17); Calcium 9.1 mg/dL (8.4-10.2); Carbon Dioxide 33 mmol/L (22-30); Chloride 100 mmol/L (98-107); Estimated CRCL calculation 73 ml/min; Estimated Glomerular Filt Rate > 60; Glucose 295 mg/dL (65-110); Lipase 43 U/L (23-300); Potassium 4.5 mmol/L (3.4-5.0); Sodium 132 mmol/L (137-145)
[2023-06-20 07:27] LABS: Appearance Urine Clear (Clear); Bilirubin Urine Negative (Negative); Blood Urine Negative (Negative); Color Urine Yellow (Yellow); Glucose Urine UA 3+ mg/dL (Negative); Ketones Urine Negative (Negative); Leukocyte Esterase Ur Negative LEU/UL (Negative); Nitrate Urine Negative (Negative); Protein Urine Negative (Negative); Specific Grav Ur 1.015 (1.001-1.035); Urobilinogen Urine 0.2 mg/dL (<2.0); pH Urine 6.5 (5.0-9.0)
[2023-06-20 07:29] LABS: Troponin I < 0.012 ng/mL (0.000-0.034)
[2023-06-20 07:42] LABS: Add Urine Microscopic? NO
== END 2023-06-20 08:37 ==
PROVIDERS: Emergency Medicine; Emergency Provider Emergency Medicine; PCP Physician Assistant
DX: S39.011A Strain of muscle, fascia and tendon of abdomen, initial encounter (principal); I10 Essential (primary) hypertension; E10.319 Type 1 diabetes mellitus with unspecified diabetic retinopathy without macular edema; H35.30 Unspecified macular degeneration; H54.8 Legal blindness, as defined in USA; E10.40 Type 1 diabetes mellitus with diabetic neuropathy, unspecified; E78.5 Hyperlipidemia, unspecified; E03.9 Hypothyroidism, unspecified; E55.9 Vitamin D deficiency, unspecified; K21.9 Gastro-esophageal reflux disease without esophagitis; Z86.73 Personal history of transient ischemic attack (TIA), and cerebral infarction without residual deficits; Z86.010 Personal history of colon polyps; Z98.42 Cataract extraction status, left eye; Z98.41 Cataract extraction status, right eye; Z90.49 Acquired absence of other specified parts of digestive tract; K44.9 Diaphragmatic hernia without obstruction or gangrene; X50.9XXA Other and unspecified overexertion or strenuous movements or postures, initial encounter
CPT/HCPCS: 36415; 71045; 74177; 80053; 81003; 83605; 83690; 84484; 85025; 85610; 85730; 99284; Q9967

== ENCOUNTER 2023-08-16 14:38 | Outpatient (CLI) | payer MEDICARE, MEDICAID, SELFPAY ==
--- NOTE | ~2023-08-16 | US_ITS ---
EXAMINATION: US venous doppler [facility] DATE: 08/16/2023 15:28 INDICATION: M79.605 - Pain in left leg . TECHNIQUE: Grayscale images without and with compression and Doppler images of the left lower extremi ty veins were obtained. COMPARISON: None FINDINGS: The left common femoral vein, profunda (deep) femoral vein, femoral vein, popliteal vein, peroneal v ein, posterior tibial veins, gastrocnemius vein, and greater saphenous vein are patent. 6.2 x 2.9 cm cystic subcutaneous structure at the knee, likely Del Cid's cyst that was displaced somewhat medially b y positioning of the limb. IMPRESSION: Patent left lower extremity veins. No evidence of deep venous thrombosis. Reviewed, dictated and finalized at location K.
== END 2023-08-16 14:39 | disposition home or self-care (01) ==
PROVIDERS: PCP Nurse Practitioner; Visit Provider Nurse Practitioner
DX: R60.9 Edema, unspecified (principal); M79.605 Pain in left leg
CPT/HCPCS: 93971

== ENCOUNTER 2023-08-19 11:05 | Emergency (ER) | payer MEDICARE, MEDICAID, SELFPAY ==
--- NOTE | ~2023-08-19 | US_ITS ---
EXAMINATION: US venous doppler [facility] DATE: 08/19/2023 12:28 INDICATION: Left lower limb pain and swelling. TECHNIQUE: Grayscale ultrasound images without and with compression and Doppler ultrasound images of the left lower extremity veins were obtained. COMPARISON: Ultrasound 08/16/2023 FINDINGS: The visualized portions of left common femoral vein, profunda (deep) femoral vein, femoral vein, popl iteal vein, peroneal veins, posterior tibial veins, and greater saphenous vein outflow are patent. Th ere is a large Del Cid's cyst. IMPRESSION: 1. No deep venous thrombosis. 2. Large Del Cid's cyst. Reviewed, dictated and finalized at location A.
[2023-08-19 11:10] VITALS: BP 134/75; PULSE 96; RESP 18; TEMP 36.8; O2SAT 94
--- NOTE | 2023-08-19 11:23 | PC.NURSE ---
Pt states her blood sugar was 69, pt given 2 apple juices.
--- NOTE | 2023-08-19 11:53 | ED.EXTPRO ---
HPI - Extremity Problem General Chief complaint: Extremity Problem,Nontraumatic Stated complaint: left leg swollen from knee up Time Seen by Provider: 08/19/23 11:30 Source: patient Mode of arrival: ambulatory Limitations: no limitations History of Present Illness HPI Narrative: This is a 73-year-old female who presents to the ED for chief complaint of left lower extremity pain and swelling for the past several weeks. Patient reports that the pain is primarily located around the knee. There is also occasional radiating pain is down the left lower extremity. She has known history of neuropathy due to diabetes. She takes Lyrica daily. She felt that the leg was more swollen than normal. Denies redness, warmth, fevers, chills, nausea, vomiting, numbness, weakness Related Data Home Medications Medication Instructions Recorded Confirmed zoledronic acid 5 mg/100 mL in 5 ea IV .yearly 11/22/22 08/16/23 mannitol 5 %-water intravenous piggybck (Reclast) cyclobenzaprine 10 mg tablet 10 mg PO TID PRN 08/16/23 08/16/23 Allergies Allergy/AdvReac Type Severity Reaction Status Date / Time estrogens, conjugated Allergy Mild Rash Verified 08/19/23 11:24 [From Prempro] medroxyprogesterone Allergy Mild Rash Verified 08/19/23 11:24 [From Prempro] Review of Systems Review of Systems: All systems as dictated in HPI [facility] Past Medical History Medical History Anxiety Cerebrovascular accident 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 DKA (diabetic ketoacidosis) Erosive esophagitis With history of esophageal ulcers. Hiatal hernia Hyperlipidemia Hypertension Hypothyroid Macular degeneration Thyroid goiter Type 1 diabetes mellitus Diagnosed in 1993. On oral medication for many years before transitioning to insulin. C-peptide less than 0.1, KHUSHBOO > 50 on labs in March 2016. Vitamin D deficiency Surgical History Surgical History History of bilateral cataract extraction History of cardiac catheterization History of cholecystectomy (2001) History of colonoscopy with polypectomy History of esophageal dilatation (01/2017) For esophageal stricture. History of orthopedic surgery Including surgeries to the right elbow, shoulder, and toe. History of surgical procedure on eye proper using laser For diabetic retinopathy. Family History Family History Father Family history of elevated blood lipids Hypertension Family history of malignant neoplasm of kidney Family history of lung cancer Mother Family history of elevated blood lipids Sibling Family history of elevated blood lipids Family history of thyroid disease Hypertension Family history of diabetes mellitus in first degree relative Social History Social History Social History: Surrogate decision maker: Marisol Cristina (sister) or Alejandra Saeed (daughter). Code status: Full code. Smoking status: Never smoker Second hand tobacco smoke exposure: No Alcohol intake: never Substance use: never Substance use type: does not use Lack of Transportation: No Lack of Food: Never True Current Housing: I Have Housing Concerned About Future Housing: No Difficulty Paying Gas/Electric Bills: No Difficulty Paying for Meds: No Currently Unemployed: No Education: High School Diploma/GED Difficulty w/ Childcare or Family Care: No Living arrangements: assisted living Additional living arrangements comments: Lives in assisted living at [facility]. 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 Spiritual care concerns:
== END 2023-08-19 12:47 ==
PROVIDERS: Emergency Provider Physician Assistant; PCP Nurse Practitioner
DX: M71.22 Synovial cyst of popliteal space [Baker], left knee (principal); I10 Essential (primary) hypertension; E10.40 Type 1 diabetes mellitus with diabetic neuropathy, unspecified; E10.319 Type 1 diabetes mellitus with unspecified diabetic retinopathy without macular edema; E78.5 Hyperlipidemia, unspecified; E03.9 Hypothyroidism, unspecified; E55.9 Vitamin D deficiency, unspecified; H54.8 Legal blindness, as defined in USA; H35.30 Unspecified macular degeneration; K44.9 Diaphragmatic hernia without obstruction or gangrene; K21.9 Gastro-esophageal reflux disease without esophagitis; Z86.73 Personal history of transient ischemic attack (TIA), and cerebral infarction without residual deficits; Z98.42 Cataract extraction status, left eye; Z98.41 Cataract extraction status, right eye; Z90.49 Acquired absence of other specified parts of digestive tract; Z79.899 Other long term (current) drug therapy; Z79.82 Long term (current) use of aspirin; Z79.4 Long term (current) use of insulin
CPT/HCPCS: 93971; 99284

== ENCOUNTER 2023-08-22 21:36 | Inpatient (IN) | payer MEDICARE, MEDICAID, SELFPAY ==
--- NOTE | ~2023-08-22 | US_ITS ---
EXAMINATION: US venous doppler [facility] DATE: 08/23/2023 14:15 INDICATION: Lower limb edema. TECHNIQUE: Grayscale ultrasound images without and with compression and Doppler ultrasound images of the bilateral lower extremity veins were obtained. COMPARISON: Ultrasound 08/19/2023 FINDINGS: The visualized portions of right common femoral vein, profunda (deep) femoral vein, femoral vein, pop liteal vein, peroneal veins, posterior tibial veins, and greater saphenous vein outflow are patent. T here is a small Del Cid's cyst with loose bodies. The visualized portions of left common femoral vein, profunda femoral vein, femoral vein, popliteal v ein, peroneal veins, posterior tibial veins, and greater saphenous vein outflow are patent. There is a moderate-sized Del Cid's cyst. IMPRESSION: 1. No deep venous thrombosis. 2. Small right Del Cid's cyst with loose bodies. 3. Moderate-sized left Del Cid's cyst. Reviewed, dictated and finalized at location A.
--- NOTE | ~2023-08-22 | CT_ITS ---
Clinical Indication: Shortness of breath CT Scan of the Chest with Contrast: Technique: Contiguous sections were acquired throughout the chest after intravenous administration of 100 cc of Omnipaque 350. Dose reduction technique was used on this scan by utilizing automated expos ure control and iterative reconstruction technique. The dose-length product (DLP) was 739.73 mGy-cm. Findings: There is no evidence of any significant mediastinal, hilar or axillary lymphadenopathy. There is no f illing defect in the pulmonary arterial tree to suggest pulmonary embolus. There is no evidence of ao rtic dissection or aneurysm. There is no evidence of pleural or pericardial effusion. The lungs are clear, aside from minimal dependent atelectatic changes. Images through the upper abdomen reveal moderate hiatal hernia. Impression: No evidence of pulmonary embolus, aortic dissection, or aortic aneurysm. No significant pulmonary abnormality. Moderate hiatal hernia. Reviewed, dictated and finalized at [facility]. Impression: No evidence of pulmonary embolus, aortic dissection, or aortic aneurysm. No significant pulmonary abnormality. Moderate hiatal hernia.
--- NOTE | ~2023-08-22 | CT_ITS ---
CT head without contrast Indication: Dizziness COMPARISON: 01/29/2023 Technique: Serial scans were obtained through the brain without the administration of contrast. Dose reduction technique was used on this scan by utilizing automated exposure control and iterative recon struction technique. The dose-length product (DLP) was 529.67 mGy-cm. Findings: There is no evidence of intracranial hemorrhage, mass lesion, or acute infarct. The ventri cles and subarachnoid spaces are dilated, consistent with mild to moderate atrophy. Low attenuation regions are seen within the periventricular white matter bilaterally, likely representing changes fro m chronic microvascular ischemic disease. There is no evidence of edema, mass effect or midline shif t. The visualized paranasal sinuses and mastoid air cells are clear. Impression: No intracranial hemorrhage, mass, or acute infarct. Atrophy and chronic white matter changes, as above. Reviewed, dictated and finalized at location M. Impression: No intracranial hemorrhage, mass, or acute infarct. Atrophy and chronic white matter changes, as above.
--- NOTE | ~2023-08-22 | XR_ITS ---
Portable chest x-ray Comparison: 06/20/2023 Clinical History: Confusion Findings: Lungs are clear, without focal consolidation or pleural effusion. Cardiomediastinal silho uette is stable. Bones and soft tissues are unremarkable. Impression: Clear lungs. Reviewed, dictated and finalized at location . Impression: Clear lungs.
--- NOTE | ~2023-08-22 | CT_ITS ---
EXAMINATION: CTA brain carotid DATE: 08/23/2023 13:22 INDICATION: Dizziness. Slurred speech. Altered mental status. TECHNIQUE: Computed tomographic angiography (CTA) of the head was performed with 100 mL Omnipaque-350 intravenous contrast. CTA of the neck was performed with intravenous contrast. Automated exposure co ntrol and iterative reconstruction technique were employed. The dose-length product was 931.51 mGy-cm . Maximum intensity projection and volume rendered 3D-reconstructions were created by the technFoodynis t on a separate workstation. COMPARISON: Head CT 08/23/2023 FINDINGS: HEAD CTA: There are scattered areas of low attenuation in the cerebral white matter. There is no intr acranial hemorrhage, acute infarction, or abnormal intracranial mass lesion. The ventricles are thompson l in size. There are likely changes of ocular lens replacement surgeries. The mastoid air cells are n ormal. There is mild mucosal thickening in left maxillary sinus. Left vertebral artery is dominant. T here is no significant stenosis of basilar artery or the posterior cerebral arteries. The posterior c ommunicating arteries are normal. There is no significant stenosis of the intracranial internal carot id arteries or anterior or middle cerebral arteries. Anterior communicating artery is normal. There i s no aneurysm. NECK CTA: There are no pathologically enlarged lymph nodes. There is no significant stenosis of the v ertebral arteries. There is mild plaque in the proximal internal carotid arteries. There is 0% stenos is of the proximal right internal carotid artery relative to normal distal artery lumen diameter (CLIFTON CET criteria). There is 0% stenosis of the proximal left internal carotid artery relative to normal d istal artery lumen diameter. There is severe cervical spondylosis. IMPRESSION: 1. Moderate nonspecific cerebral white matter disease, which likely represents chronic small vessel i schemic disease. 2. No aneurysm or significant intracranial arterial stenosis. 3. 0% stenosis of the proximal internal carotid arteries relative to normal distal artery lumen diame ters (NASCET criteria). Reviewed, dictated and finalized at location A. IMPRESSION: 1. Moderate nonspecific cerebral white matter disease, which likely represents chronic small vessel ischemic disease. 2. No aneurysm or significant intracranial arterial stenosis. 3. 0% stenosis of the proximal internal carotid arteries relative to normal dis ryan artery lumen diameters (NASCET criteria).
--- NOTE | ~2023-08-22 | MR_ITS ---
EXAMINATION: MR brain/brain stem wo con DATE: 08/23/2023 14:16 INDICATION: Dizziness. Slurred speech. TECHNIQUE: Magnetic resonance imaging (MRI) of the brain and brainstem was performed without intraven ous contrast. COMPARISON: Brain MRI 04/14/2012, head CT 08/23/2023 FINDINGS: There are old infarcts in the cerebellum bilaterally. There is no intracranial hemorrhage, acute infarction, or abnormal intracranial mass lesion. There are scattered areas of nonspecific incr eased T2-weighted signal intensity in the cerebral white matter and nitin. The ventricles are normal i n size. There is mild mucosal thickening in the paranasal sinuses. There are likely changes of ocular lens replacement surgeries. The mastoid air cells are normal. IMPRESSION: 1. Old infarcts in the cerebellum bilaterally. 2. Moderate nonspecific cerebral white matter disease and pontine disease, which likely represents ch ronic small vessel ischemic disease. Reviewed, dictated and finalized at location A. IMPRESSION: 1. Old infarcts in the cerebellum bilaterally. 2. Moderate nonspecific cerebral white matter disease and pontine disease, whic h likely represents chronic small vessel ischemic disease.
[2023-08-22 21:40] VITALS: BP 166/71; PULSE 75; RESP 18; TEMP 36.3; O2SAT 95
[2023-08-22 23:56] LABS: Glucose Point of Care 244 mg/dl (65-105)
[2023-08-23] VITALS (15 sets, daily range): BP systolic 141–177; BP diastolic 57–96; PULSE 71–98; RESP 13–21; TEMP 36.1–36.5; O2SAT 85–100
--- NOTE | 2023-08-23 | ECHO_ITS ---
Patient Info Name: Kyle Sanches Age: 73 years : 1950 Gender: Female Ht: 62 in Wt: 195 lbs BSA: 2.01 m2 HR: 62 bpm BP: 153 / 60 mmHg Heart Rhythm: Sinus Rhythm Technical Quality: Fair Exam Date: 08/23/2023 2:41 PM Exam Location: Echo Lab Patient Status: Inpatient Admit Date: 08/23/2023 Staff Ordering Physician: Nella Joyner APRN Warper Tender: Esthela Arellano RDCS Attending Provider: Nella Joyner APRN Referring Physician: Ar MASTERSON; Exam Type: CA echo doppler w bubble study Study Info Indications - Dizziness/weakness/falls Complete two-dimensional, color flow and Doppler transthoracic echocardiogram is performed with agitated saline. Contrast/Agitated Saline Contrast/Ag. Saline: Agitated Saline Amount: 20.00 ml Administered By: Esthela Arellano RDCS Existing IV Access: Yes IV Access Condition: patent with no signs of infiltration Summary 1. Left ventricular chamber dimension is normal. 2. Left ventricular systolic function is normal, estimated at 60-65%. 3. The left ventricular diastolic function is grade I diastolic dysfunction. 4. E/e' 11 is mildly elevated. 5. Left atrial chamber dimension is mildly enlarged. 6. Agitated saline injection opacified right side cardiac chambers without shunt to left side cardiac chambers, but with valsalva maneuver several bubbles shunted to left side cardiac chambers suggestive of patent foramen ovale. 7. There is mild mitral valve regurgitation. 8. No pulmonary hypertension, estimated pulmonary arterial systolic pressure is 25 mmHg. Left Ventricle E/e' 11 is mildly elevated. Left ventricular chamber dimension is normal. Left ventricular systolic function is normal, estimated at 60-65%. The left ventricular diastolic function is grade I diastolic dysfunction. Right Ventricle Right ventricular systolic function is normal and with normal TAPSE 2.0 cm. Right ventricular chamber dimension is normal. Left Atria Left atrial chamber dimension is mildly enlarged. Right Atria Right atrial chamber dimension is normal. Atrial Septum Agitated saline injection opacified right side cardiac chambers without shunt to left side cardiac chambers, but with valsalva maneuver several bubbles shunted to left side cardiac chambers suggestive of patent foramen ovale. Suspected patent foramen ovale visualized by 2D and agitated saline imaging. Aortic Valve The aortic valve is trileaflet. There is no aortic valve stenosis. There is no aortic valve regurgitation. Pulmonic Valve There is no pulmonic regurgitation. Mitral Valve There is no mitral valve stenosis. There is mild mitral valve regurgitation. Tricuspid Valve There is no tricuspid valve regurgitation. No pulmonary hypertension, estimated pulmonary arterial systolic pressure is 25 mmHg. Pericardium/Pleural There is no pericardial effusion. Inferior Vena Cava Normal inferior vena cava with >50% collapse upon inspiration consistent with normal right atrial pressure, 5 mmHg. Aorta The aortic root size at the sinus of Valsalva is normal. Left Ventricular Outflow Tract Name Value Normal LVOT 2D LVOT Diameter 2.0 cm LVOT Doppler LV
--- NOTE | 2023-08-23 00:26 | ED.AMS ---
HPI - Altered Mental Status General Chief Complaint: Altered Mental Status Stated Complaint: confusion Time Seen by Provider: 08/23/23 00:01 Source: patient Limitations: no limitations History of Present Illness HPI narrative: Patient presents with report of shortness of breath today and confusion. She states that she is having difficulty remembering things and she that day of the week room she was talking with her granddaughter. She is also having intermittent dizziness. Of note she presented 2 days ago with knee pain and unilateral leg swelling and was told she did not have a blood clot leg. She does wear oxygen at baseline. Denies any fevers. No chest pain But she has been coughing. denies past medical history of asthma or COPD or heart failure. Related Data Home Medications Medication Instructions Recorded Confirmed zoledronic acid 5 mg/100 mL in 5 ea IV .yearly 11/22/22 08/23/23 mannitol 5 %-water intravenous piggybck (Reclast) cyclobenzaprine 10 mg tablet 10 mg PO TID PRN Muscle Spasm 08/16/23 08/23/23 Allergies Allergy/AdvReac Type Severity Reaction Status Date / Time estrogens, conjugated Allergy Mild Rash Verified 08/19/23 11:24 [From Prempro] medroxyprogesterone Allergy Mild Rash Verified 08/19/23 11:24 [From Prempro] [facility] Past Medical History Medical History Anxiety Cerebrovascular accident 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 DKA (diabetic ketoacidosis) Erosive esophagitis With history of esophageal ulcers. Hiatal hernia Hyperlipidemia Hypertension Hypothyroid Macular degeneration Thyroid goiter Type 1 diabetes mellitus Diagnosed in 1993. On oral medication for many years before transitioning to insulin. C-peptide less than 0.1, KHUSHBOO > 50 on labs in March 2016. Vitamin D deficiency Surgical History Surgical History History of bilateral cataract extraction History of cardiac catheterization History of cholecystectomy (2001) History of colonoscopy with polypectomy History of esophageal dilatation (01/2017) For esophageal stricture. History of orthopedic surgery Including surgeries to the right elbow, shoulder, and toe. History of surgical procedure on eye proper using laser For diabetic retinopathy. Family History Family History Father Family history of elevated blood lipids Hypertension Family history of malignant neoplasm of kidney Family history of lung cancer Mother Family history of elevated blood lipids Sibling Family history of elevated blood lipids Family history of thyroid disease Hypertension Family history of diabetes mellitus in first degree relative Social History Social History Social History: Surrogate decision maker: Marisol Cristina (sister) or Alejandrara Saeed (daughter). Code status: Full code. Smoking status: Never smoker Second hand tobacco smoke exposure: No Alcohol intake: never Substance use: never Substance use type: does not use Do You Feel Safe in your Home?: Yes Lack of Transportation: No Lack of Food: Never True Current Housing: I Have Housing Concerned About Future Housing: No Difficulty Paying Gas/Electric Bills: No Difficulty Paying for Meds: No Currently Unemployed: No Education: High School Diploma/GED Difficulty w/ Childcare or Family Care: No Living arrangements: assisted living Additional living arrangements comments: Lives in assisted living at [facility]. 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 Spiritual care concerns: N
--- NOTE | 2023-08-23 00:41 | ECG_ITS ---
Test Date: 2023-08-23 01:48:25 Measurements Intervals [place] Rate: 75 P: 57 W[place]: 161 QRS: 55 QRSD: 160 T: 33 QT: 396 QTc: 444 Interpretive Statements SINUS RHYTHM RIGHT BUNDLE BRANCH BLOCK [120+ ms QRS DURATION, UPRIGHT V1, 40+ ms S IN I/aVL/V4/V5/V6] No previous ECG available for comparison Electronically Signed On 08-23-2023 13:35:25 CDT by Naseem Koch M.D.
[2023-08-23 01:03] LABS: Alveolar/Arterial O2 Gradient 51.9 mmHg; Base Excess ABG 5.5 mEq/l (+/-2.0); Fractional Inspired Oxygen 28 %; HCO3 ABG 31.9 mEq/l (22.0-26.0); Oxygen Content ABG 17.5 %vol (16.0-22.0); Oxygen Saturation ABG 95.9 % (95.0-100.0); Oxyhemoglobin 94.1 % THb (90.0-100.0); PCO2 ABG 54.7 mmHg (35.0-45.0); PO2 ABG 83.2 mmHg (80.0-100.0); PO2 FiO2 Ratio Arterial Blood 2.97 %; Total Hemoglobin 13.2 g/dL (12.0-18.0); pH ABG 7.384 (7.350-7.450)
[2023-08-23 01:04] LABS: Device NASAL CANNULA; Site Drawn RIGHT BRACHIAL
[2023-08-23 01:04] LABS: Basophils Percent Auto 0.8 % (0.2-1.2); Eosinophils Absolute Auto 0.2 K/mm3 (0-0.3); Eosinophils Percent Auto 5.1 % (0-4.4); Hematocrit 40.1 % (37.0-47.0); Hemoglobin 13.2 g/dL (12.0-15.0); Lymphocytes Percent Auto 28.1 % (18.3-44.2); Mean Corpuscular HGB Conc 32.9 g/dl (32-36); Mean Corpuscular Hemoglobin 29.7 pg (26-34); Mean Corpuscular Volume 90.1 fl (80-100); Mean Platelet Volume 10.9 fl (7.4-10.4); Monocytes Absolute Auto 0.3 K/mm3 (0.1-0.6); Monocytes Percent Auto 8.4 % (2.6-8.5); Neutrophils Absolute Auto 2.3 K/mm3 (1.3-6.7); Neutrophils Percent Auto 57.6 % (45.5-73.1); Platelet Count Result 162 k/mm3 (150-375); Red Blood Count 4.45 M/mm3 (4.2-5.4); Red Cell Distribution Width 14.2 % (11.5-14.5); White Blood Count 3.9 K/mm3 (4.5-10.0)
[2023-08-23 01:13] LABS: Lactic Acid Reflex 0.7 mmol/L (0.7-2.0)
[2023-08-23 01:14] LABS: INR 0.9; Prothrombin Time 12.5 Seconds (11.1-14.7)
[2023-08-23 01:15] LABS: Alanine Aminotransferase 31 U/L (6-35); Albumin Level 4.4 g/dL (3.5-5.1); Alkaline Phosphatase 109 U/L (38-126); Anion Gap 5 mmol/L (4-12); Aspartate Amino Transferase 37 U/L (14-36); Bilirubin,Total 0.6 mg/dL (0.2-1.3); Blood Urea Nitrogen 15 mg/dL (7-17); Calcium 9.5 mg/dL (8.4-10.2); Carbon Dioxide 34 mmol/L (22-30); Chloride 97 mmol/L (98-107); Creatine Kinase 72 U/L (30-135); Estimated CRCL calculation 62 ml/min; Estimated Glomerular Filt Rate > 60; Glucose 253 mg/dL (65-110); Partial Thromboplastin Time 35.5 Seconds (22.3-36.8); Potassium 3.9 mmol/L (3.4-5.0); Sodium 136 mmol/L (137-145)
[2023-08-23 01:23] LABS: NT Pro B Type Natriuretic Pept 181 pg/mL (19.9-100)
[2023-08-23 02:06] LABS: D Dimer 1.19 ug/mL (<0.48)
[2023-08-23 02:26] LABS: Acetaminophen < 10 ug/mL (10-30); Salicylate < 1.0 mg/dL (2-20)
[2023-08-23 02:28] LABS: Appearance Urine Clear (Clear); Bilirubin Urine Negative (Negative); Blood Urine Negative (Negative); Color Urine Yellow (Yellow); Glucose Urine UA 2+ mg/dL (Negative); Ketones Urine Negative (Negative); Leukocyte Esterase Ur Negative LEU/UL (Negative); Nitrate Urine Negative (Negative); Protein Urine Negative (Negative); Urobilinogen Urine 0.2 mg/dL (<2.0)
[2023-08-23 02:58] LABS: Add Urine Microscopic? YES
[2023-08-23 03:02] LABS: Influenza A QL RT-PCR Negative (Negative); Influenza B QL RT-PCR Negative (Negative); RSV RNA, RT-PCR Negative (Negative); SARS-CoV-2 RNA PCR Negative (Negative)
[2023-08-23] MEDS: lisinopriL 10 MG TABLET PO (05:47)
--- NOTE | 2023-08-23 06:07 | ADMGEN ---
This patient, Kyle Sanches, was admitted to Medical Room 253-01. Patient/family oriented to hospital policies and general routines including ID bracelet, bed and alarms, visiting hours, pain management, procedures, bathroom and other care routines, personal items, smoking policy, room service/diet, and visiting hours. Information on how to activate the Rapid Response Team has been discussed. Patient/Family are encouraged to report perceived risks to care and to ask questions if they do not understand what they are told or what they should do.
[2023-08-23 08:43] LABS: Glucose Point of Care 190 mg/dl (65-105)
[2023-08-23 08:48] LABS: Hemoglobin A1C 7.8 % (<5.7)
[2023-08-23 12:13] LABS: Glucose Point of Care 234 mg/dl (65-105)
[2023-08-23] MEDS: PREGABALIN (*CRX) 75 MG CAPSULE 150 MG PO ×2 (12:36→17:27)
[2023-08-23] MEDS: INSULIN ASPART (*BKC) 100 UNITS/ML SUB-Q ×2 (12:36→17:27)
[2023-08-23 13:38] LABS: Amphetamine Screen Urine Negative (Negative); Barbiturate Screen Urine Negative (Negative); Benzodiazepines Screen Urine Negative (Negative); Cannabinoid Screen Urine Negative (Negative); Cocaine Screen Urine Negative (Negative); Methadone Screen Urine Negative (Negative); Opiate Screen Urine Negative (Negative); Phencyclidine Screen Urine Negative (Negative)
--- NOTE | 2023-08-23 13:44 | PM.IMHP ---
H&P: HPI History of Present Illness Date/Time: 08/23/23 13:44 Chief Complaint: Dizziness/AMS/Lethargy/LT sided knee pain/SOB Narrative: Patient is a 73 year old pleasant female who presented to the ED from [facility] after a STEEL BOX TOE INSERTER called EMS for certified registered dental assistant because patient was having episodes of dizziness, AMS, lethargy, and LT side pain. Daughter at beside assisting with admission assessment who reported patient has been having episodes of memory and slurred/slowed speech. Family and patient also reported generalized weakness and falls. Patient has a past medical history of CVA, GERD, HTN, HLD, Diabtes, and hypothyroidism. Patient was alert and oriented during assessment denied any CP, SOB, N/V, dizziness, fever, or chills. Patient did report continued LT sided LE pain and SOB but was 100 on RA. Family reports she has worsening over the last 6 months with memory loss, slow response, dizziness, and falls. ABG was done that hypercapnia 54.7 and PO2 of 83.2, CXR clear lungs, and Head Ct with no acute findings. Patient did have a elevated DDIMER and CTA was negative for PE BLE venous US pending. WBC 3.9 which is chronic and elevated glucose otherwise labs unremarkable. UA negative but patient is currently on a regiment of bactrim unsure at this time for what and patient is unsure why she is on it. Patient was moving all extremities with full ROM and strength no deficits at this time. 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 DKA (diabetic ketoacidosis) Erosive esophagitis With history of esophageal ulcers. Hiatal hernia Hyperlipidemia Hypertension Hypothyroid Macular degeneration Thyroid goiter Type 1 diabetes mellitus Diagnosed in 1993. On oral medication for many years before transitioning to insulin. C-peptide less than 0.1, KHUSHBOO > 50 on labs in March 2016. Vitamin D deficiency Surgical History Surgical History History of bilateral cataract extraction History of cardiac catheterization History of cholecystectomy (2001) History of colonoscopy with polypectomy History of esophageal dilatation (01/2017) For esophageal stricture. History of orthopedic surgery Including surgeries to the right elbow, shoulder, and toe. History of surgical procedure on eye proper using laser For diabetic retinopathy. Family History Family History Father Family history of elevated blood lipids Hypertension Family history of malignant neoplasm of kidney Family history of lung cancer Mother Family history of elevated blood lipids Sibling Family history of elevated blood lipids Family history of thyroid disease Hypertension Family history of diabetes mellitus in first degree relative Social History Social History Social History: Surrogate decision maker: Marisol Cristina (sister) or Alejandra Saeed (daughter). Code status: Full code. Smoking status: Never smoker Second hand tobacco smoke exposure: No Alcohol intake: never Substance use: never Substance use type: does not use Do You Feel Safe in your Home?: Yes Lack of Transportation: No Lack of Food: Never True Current Housing: I Have Housing Concerned About Future Housing: No Difficulty Paying Gas/Electric Bills: No Difficulty Paying for Meds: No Currently Unemployed: No Education: High School Diploma/GED Difficulty w/ Childcare or Family
[2023-08-23 16:49] LABS: Glucose Point of Care 284 mg/dl (65-105)
[2023-08-23] MEDS: BETHANECHOL CHLORIDE 25 MG TABLET PO (17:27)
[2023-08-23] MEDS: CALCIUM/VITAMIN D 500 MG/5 MCG (200 I.U.) TABLET PO (17:27)
[2023-08-23] MEDS: busPIRone HCL 5 MG TABLET PO (20:23)
[2023-08-23] MEDS: busPIRone HCL 2.5 MG TABLET PO (20:23)
[2023-08-23] MEDS: ACETAMINOPHEN 325 MG TABLET 650 MG PO (20:26)
[2023-08-23 20:37] LABS: Glucose Point of Care 286 mg/dl (65-105)
[2023-08-24 00:04] VITALS: PULSE 71
[2023-08-24 04:00] VITALS: PULSE 75
[2023-08-24 04:44] LABS: Hematocrit 38.7 % (37.0-47.0); Hemoglobin 12.5 g/dL (12.0-15.0); Mean Corpuscular HGB Conc 32.3 g/dl (32-36); Mean Corpuscular Volume 89.8 fl (80-100); Mean Platelet Volume 11.6 fl (7.4-10.4); Platelet Count Result 167 k/mm3 (150-375); Red Blood Count 4.31 M/mm3 (4.2-5.4); Red Cell Distribution Width 14.1 % (11.5-14.5); White Blood Count 3.4 K/mm3 (4.5-10.0)
[2023-08-24 04:53] LABS: Alanine Aminotransferase 41 U/L (6-35); Albumin Level 3.7 g/dL (3.5-5.1); Alkaline Phosphatase 99 U/L (38-126); Anion Gap 2 mmol/L (4-12); Aspartate Amino Transferase 47 U/L (14-36); Bilirubin,Total 0.7 mg/dL (0.2-1.3); Blood Urea Nitrogen 17 mg/dL (7-17); Calcium 9.5 mg/dL (8.4-10.2); Carbon Dioxide 31 mmol/L (22-30); Chloride 100 mmol/L (98-107); Cholesterol 184 mg/dL (0-200); Estimated CRCL calculation 62 ml/min; Estimated Glomerular Filt Rate > 60; Glucose 262 mg/dL (65-110); HDL Direct 79 mg/dL; Potassium 4.1 mmol/L (3.4-5.0); Sodium 133 mmol/L (137-145); Triglycerides 89 mg/dL (<150)
[2023-08-24 05:04] LABS: LDL Cholesterol Direct 76 mg/dL
[2023-08-24 05:32] VITALS: BP 149/69; PULSE 75; RESP 20; TEMP 36.8; O2SAT 100
[2023-08-24] MEDS: LEVOTHYROXINE SODIUM 125 MCG TABLET PO (05:50)
[2023-08-24 08:03] VITALS: PULSE 78
[2023-08-24 08:08] LABS: Glucose Point of Care 299 mg/dl (65-105)
[2023-08-24] MEDS: INSULIN ASPART (*BKC) 100 UNITS/ML SUB-Q (08:20)
[2023-08-24] MEDS: SERTRALINE HCL 50 MG TABLET 100 MG PO (08:25)
[2023-08-24] MEDS: CALCIUM/VITAMIN D 500 MG/5 MCG (200 I.U.) TABLET PO (08:25)
[2023-08-24] MEDS: BETHANECHOL CHLORIDE 25 MG TABLET PO (08:25)
[2023-08-24] MEDS: PREGABALIN (*CRX) 75 MG CAPSULE 150 MG PO (08:25)
[2023-08-24] MEDS: CHOLECALCIFEROL 1,000 UNITS TABLET 1000 UNITS PO (08:25)
[2023-08-24 08:26] VITALS: RESP 20; O2SAT 100
[2023-08-24] MEDS: PRAVASTATIN SODIUM 20 MG TABLET PO (08:26)
[2023-08-24] MEDS: LORATADINE 10 MG TABLET PO (08:26)
[2023-08-24] MEDS: busPIRone HCL 2.5 MG TABLET PO (08:26)
[2023-08-24] MEDS: lisinopriL 10 MG TABLET PO (08:26)
[2023-08-24] MEDS: busPIRone HCL 5 MG TABLET PO (08:26)
[2023-08-24] MEDS: MAGNESIUM OXIDE 400 MG TABLET PO (08:26)
[2023-08-24] MEDS: PANTOPRAZOLE 40 MG TABLET PO (08:26)
[2023-08-24] MEDS: FERROUS SULFATE 325 MG TABLET DR PO (08:26)
[2023-08-24] MEDS: ENOXAPARIN 40 MG/0.4 ML SYRINGE SUB-Q (08:27)
[2023-08-24] MEDS: INSULIN GLARGINE (*BKC) 100 UNITS/ML 14 UNITS SUB-Q (08:28)
[2023-08-24] MEDS: ASPIRIN 81 MG ENTERIC TABLET PO (09:12)
--- NOTE | 2023-08-24 09:53 | PM.DS ---
DS: Admitting Diagnosis Discharge Date 08/24/2023 Admitting Diagnosis AMS/Generalized weakness DS: Discharge Diagnosis Discharge Diagnosis (1) Generalized weakness: Code(s): R53.1 - Weakness Status: Acute (2) Left leg pain: Code(s): M79.605 - Pain in left leg Status: Acute (3) Falls frequently: Code(s): R29.6 - Repeated falls Status: Acute (4) Dizziness: Code(s): R42 - Dizziness and giddiness Status: Acute (5) Dyspnea: Code(s): R06.00 - Dyspnea, unspecified Status: Acute Plan Dizziness/Weakness CTA/MRI with no abnormal findings old infarcts noted orthostatics negative PT/OT pending poor oral hydration IV fluids EKG SR with BBB Echo pending Dyspnea ABG showed /hypercapnia PCO2 54.7 CXR clear lung marques CTA negative for PE Patient on 100% on RA LLE pain Venous doppler no DVT Del Cid's cyst NSAID PT/OT Diabetes Accu-Cheks a.c. HS sliding scale insulin hold oral diabetic medications resume patient's home long-acting Hemoglobin A1c goal less than 7 Diabetic diet Watch for hypoglycemia/hypoglycemic protocol ordered Hypothyroidism Resume levothyroxine TSH level 7 Need to follow-up outpatient with primary Disposition: Discharged back to [facility] assisted living DS: Summary Hospital Course Reason for hospitalization: AMS/dizziness/generalized weakness Hospital Course: Chief Complaint: Dizziness/AMS/Lethargy/LT sided knee pain/SOB Narrative: Patient is a 73 year old pleasant female who presented to the ED from [facility] after a MANAGER QUANTITATIVE called EMS for assistant project engineer because patient was having episodes of dizziness, AMS, lethargy, and LT side pain. Daughter at beside assisting with admission assessment who reported patient has been having episodes of memory and slurred/slowed speech. Family and patient also reported generalized weakness and falls. Patient has a past medical history of CVA, GERD, HTN, HLD, Diabtes, and hypothyroidism. Patient was alert and oriented during assessment denied any CP, SOB, N/V, dizziness, fever, or chills. Patient did report continued LT sided LE pain and SOB but was 100 on RA. Family reports she has worsening over the last 6 months with memory loss, slow response, dizziness, and falls. ABG was done that hypercapnia 54.7 and PO2 of 83.2, CXR clear lungs, and Head Ct with no acute findings. Patient did have a elevated DDIMER and CTA was negative for PE BLE venous US pending. WBC 3.9 which is chronic and elevated glucose otherwise labs unremarkable. UA negative but patient is currently on a regiment of bactrim unsure at this time for what and patient is unsure why she is on it. Patient was moving all extremities with full ROM and strength no deficits at this time. 08/23: DISCHARGED Patient CTA, MRI, venous Doppler where negative for any acute issues only showed previous old infarct on MRI and dopplers reidentified bakers cyst. Echo did show PFO but with patient advance age and and generally asymptomatic no surgical interventions at this time but did initiate patient on a ASA and statin. Patient reported feeling overall improvement following day and was discharged back to assisted living with PT/OT orders. Patient was 100% on RA at time of discharge. Status at Discharge Functional status at discharge: uses cane/walker Overall status at discharge: patient is back to baseline Time Spent with Patient Time attestation: Total time spent providing and/or coordinating discharge services: Time spent: Greater than 30 minutes Exam Narrative: Physical Exam: GENERAL: Alert and oriented x 3. No acute distress. EYES: EOMI. No scleral icterus. PERRLA. HEENT: Moist mucous membranes. LUNGS: Clear to auscultation bilaterally. No accessory muscle use. CARDIOVASCULAR: Regular rate and rhythm. No murmur. No JVD. S1-S2 ABDOMEN: Soft, mild
[2023-08-30 13:12] LABS: T3 Free 2.0 pg/mL
== END 2023-08-24 10:40 | DRG 149 ==
LOC: ANHED 08-23 00:10 → ANH2MED 08-23 05:22
PROVIDERS: Admitting Provider Internal Medicine; Emergency Provider Student in an Organized Health Care Education/Training Program; PCP Nurse Practitioner; Visit Provider Nurse Practitioner Family
DX: R42 Dizziness and giddiness (principal); R06.00 Dyspnea, unspecified; I10 Essential (primary) hypertension; E10.40 Type 1 diabetes mellitus with diabetic neuropathy, unspecified; E10.319 Type 1 diabetes mellitus with unspecified diabetic retinopathy without macular edema; E78.5 Hyperlipidemia, unspecified; E03.9 Hypothyroidism, unspecified; E04.9 Nontoxic goiter, unspecified; E55.9 Vitamin D deficiency, unspecified; K21.9 Gastro-esophageal reflux disease without esophagitis; K44.9 Diaphragmatic hernia without obstruction or gangrene; R29.6 Repeated falls; M79.605 Pain in left leg; M71.22 Synovial cyst of popliteal space [Baker], left knee; H35.30 Unspecified macular degeneration; F32.A Depression, unspecified; F41.9 Anxiety disorder, unspecified; Z20.822 Contact with and (suspected) exposure to COVID-19; Z86.73 Personal history of transient ischemic attack (TIA), and cerebral infarction without residual deficits; Z79.4 Long term (current) use of insulin
CPT/HCPCS: 36415; 36600; 70450; 70496; 70498; 70551; 71045; 71275; 80053; 80061; 80307; 81001; 82550; 82805; 82948; 83036; 83605; 83880; 84439; 84443; 84480; 85025; 85027; 85380; 85610; 85730; 87637; 93005; 93306; 93970; 96375; 99285; A9270; J1650; J1815; Q9967

== ENCOUNTER 2023-09-23 12:34 | Outpatient (CLI) | payer MEDICARE, MEDICAID, SELFPAY | END 2023-09-23 12:35 | disposition home or self-care (01) | PROVIDERS: PCP Nurse Practitioner; Visit Provider Internal Medicine Endocrinology, Diabetes & Metabolism | DX: E03.9 Hypothyroidism, unspecified (principal) | CPT/HCPCS: 36415; 84439; 84443 ==

== ENCOUNTER 2024-04-14 08:27 | Observation (INO) | payer MEDICARE, MEDICAID, SELFPAY ==
[2024-04-14] VITALS (23 sets, daily range): BP systolic 119–152; BP diastolic 47–73; PULSE 85–105; RESP 16–40; TEMP 36.6–37.4; O2SAT 91–96; BMI 31.1
--- NOTE | ~2024-04-14 | XR_ITS ---
EXAMINATION: XR chest 2V DATE: 04/14/2024 08:55 INDICATION: Hypoxia and weakness TECHNIQUE: frontal and lateral views of the chest were obtained. COMPARISON: Chest radiograph and CT dated 08/23/2023 FINDINGS: Mild streaky bibasilar atelectasis. No other airspace opacities, pulmonary edema, pleural effusion or pneumothorax. Heart size is within normal limits for AP technique. Moderate-sized hiatal hernia. Cho lecystectomy clips in right upper quadrant. Mild to moderate thoracic spondylosis. IMPRESSION: 1. Mild bibasilar atelectasis. 2. Moderate-sized hiatal hernia. Reviewed, dictated and finalized at location A. TING BINDERY ASSISTANT
--- NOTE | ~2024-04-14 | CT_ITS ---
EXAMINATION: CT brain wo con DATE: 04/14/2024 12:07 INDICATION: Weakness and fall post syncopal episode TECHNIQUE: Computed tomography (CT) of the head was performed without intravenous contrast. Sagittal and coronal reconstructions were performed. The mA was adjusted according to patient size. Iterative reconstruction technique was employed. The dose-length product was 605.33 mGy-cm. COMPARISON: head CT dated 08/23/2023 FINDINGS: No fracture. Couple small old infarcts in the bilateral cerebellar hemispheres. No acute intracranial hemorrhage, acute infarction or abnormal extra axial fluid collection. There is mild scattered white matter hypoattenuation consistent with chronic small vessel ischemic disease. Symmetric prominence o f the sulci consistent with mild age-appropriate diffuse cerebral volume loss. The ventricles are nor mal and symmetric. No mass/mass effect. Changes of bilateral intraocular lens replacement. The orbits and mastoid air cells are normal. Small amount of mucus layering dependently in the bilateral ethmoi d sinuses. IMPRESSION: 1. No fracture or acute intracranial process. 2. Normal age related change in the brain and a couple small old infarcts in the bilateral cerebral h emispheres. Reviewed, dictated and finalized at location A. NESS BANKING REPRESENTATIVE IMPRESSION: 1. No fracture or acute intracranial process. 2. Normal age related change in the brain and a couple small old infarcts in th e bilateral cerebral hemispheres.
--- NOTE | 2024-04-14 08:38 | ECG_ITS ---
Test Date: 2024-04-14 08:33:22 Measurements Intervals [place] Rate: 91 P: 35 [place]: 137 QRS: 51 QRSD: 161 T: 10 QT: 380 QTc: 470 Interpretive Statements SINUS RHYTHM RIGHT BUNDLE BRANCH BLOCK BASELINE ARTIFACT- I, II, III, AVR, AVL, AVF, V1 ABNORMAL ECG Compared to ECG 08/23/2023 01:48:25 No significant changes Electronically Signed On 04-14-2024 08:47:28 PARTNER MARKETING INTERN by Son Chow D.O.
--- OUTSIDE RECORDS SUMMARY | 2024-04-14 08:41 | XMS_ITS ---
Author Organization [facility] Address [address] [place], [place] [id number] Care Team Providers Care Hydraulic Tester Name Role Phone Hui, Alan Unavailable Unavailable SHOLA LIVINGSTON Unavailable [phone] REASON FOR VISIT *General care, Patient presents for at-risk foot care . The patient has painful toenails and calluses that are causing difficulty with ambulation and shoegear. The onset is gradual. The patient has diabetes mellitus Medications Medication SIG (Take, Route, Frequency, Duration) Notes Start Date End Date Status Diphenoxylate-Atropine Active Calcium Active Acetaminophen Active busPIRone HCl Active ALPRAZolam Active Fluticasone Furoate Active HumaLOG Active Levothyroxine Sodium Active FreeStyle Getachew 14 Day [place] Active Glucagon Active Nystatin Active Magnesium Active Metoclopramide HCl A ctive Lidocaine Active Loratadine Active Omeprazole Active Pregabalin Active Pravastatin Sodium A ctive Vital Signs Height 62 in 02/14/2023 Weight 150 lbs 02/14/2023 BMI 27.43 kg/m2 02/14/2023 Height-cm 157.48 cm 02/14/2023 Weight-kg 68.04 kg 02/14/2023 Encounters Encounter Location Date Provider Diagnosis [facility] [place] [address] [place], [place] [id number] 02/14/2023 SHOLA LIVINGSTON Tinea unguium B35.1 ; Acquired keratosis [keratoderma] palmaris et plantaris L85.1 ; Pain in right toe(s) M79.674 ; Pain in left toe(s) M79.675 and Type 2 diabetes mellitus with other circulatory complications E11.59 Assessments Encounter Date Diagnosis (ICD Code) Assessment Notes Treatment Notes Treatment Clinical Notes Section Notes 02/14/2023 Tinea unguium (ICD-10 - B35.1) Nails 1-5 Bilateral were debrided extensively with nail nippers and emery board, reducing length and girth to pink healthy tissue with any subungual debris and necrotic tissue removed 02/14/2023 Acquired keratosis [keratoderma] palmaris et plantaris (ICD-10 - L85.1) A total of 1 corns or calluses, as described in the note above, were cut and pared utilizing a #15 blade 02/14/2023 Pain in right toe(s) (ICD-10 - M79.674) 02/14/2023 Pain in left toe(s) (ICD-10 - M79.675) 02/14/2023 Type 2 diabetes mellitus with other circulatory complications (ICD-10 - E11.59) Plan Of Treatment Treatment Notes Assessment Notes Tinea unguium Nails 1-5 Bilateral were debrided extensively with nail nippers and emery board, reducing length and girth to pink healthy tissue with any subungual debris and necrotic tissue removed Acquired keratosis [keratode rma] palmaris et plantaris A total of 1 corns or calluses, as described in the note above, were cut and pared utilizing a #15 blade Next Appt Details Follow Up: 10 - 12 weeks, Re ason: At-Risk Foot care, sooner if problems develop. Progress Notes * Kyle HERNANDEZDOB: 8 (73 yo F)Acc No.[id number]:02/14/2023 Patient: Kyle KOCH Provider: Sukumar Livingston DPM :1950 A ge:73 Y S ex:Female Date:02/14/2023 Address:[address] [place] [address] [address] , [address] [place], [place] [id number] Subjective: * Chief Complaints: * 1 . *General care. 2. Patient presents for at-risk foot care . The patient has painful toenails and calluses that are causing difficulty with ambulation and shoegear. The onset is gradual. The patient has diabetes mellitus. * HPI: H PI: General care P arash presents to the office for diabetic foot care. Patient states that their nails are thickened, elongated and painful. Patient states that it is aggravated by shoe gear. Onset is gradual., Patient denies taking blood thinners., Date last seen by Dr. Henriquez was ___October_.BS . * ROS: G eneral / Constitutional: Patient denies c hills, fever, weight loss. ? C ardiovascular: Patient denies e ahsan, shortness of breath. ? M usculoskeletal: Patient denies w eakness, broken foot bone. ? S kin: Patient complains of f ungal nails, nail changes, calluses and corns. N eurologic: Patient denies b alance difficulty, confusion, difficulty speaking, dizziness. P atient complains of b urning/ tingling, numbness. * Medical History: * Medications: T aking Pregabalin , Taking Pravastatin Sodium , Taking Omeprazole , Taking Nystatin , Taking Metoclopramide HCl , Taking Magnesium , Taking Loratadine , Taking Lidocaine , Taking Levothyroxine Sodium , Taking HumaLOG , Taking Glucagon , Taking FreeStyle Getachew 14 Day Lamont , Taking Fluticasone Furoate , Taking Diphenoxylate-Atropine , Taking Calcium , Taking busPIRone HCl , Taking ALPRAZolam , Taking Acetaminophen Objective: * Vitals: W t:150lbs, Wt-k.04 kg, Ht: 62 in, Ht-cm: 157.48 cm, BMI:27.43Index, Body Surface Area: 1.72. * Examination: P hysical Examination: General appearance: A lert, pleasant, well-nourished and in no acute distress. D ermatologic: Skin findings: S kin is thin, atrophic and lacking pedal hair.. Hypertrophic / hyperkeratotic lesion: d istal tip of the right 3rd digit. There is old sanguinous material, but no open wound or ulcer. Nail pathology: N ails 1-5 bilateral are elongated, thick, discolored, and dystrophic with subungual debris. They are painful to palpation. ? V ascular: Dorsalis pedis pulse: 0 /4, bilateral. Posterior tibial pulse: 1 /4, bilaterally. Capillary refill: g reater than 3 seconds. Edema: N o edema bilateral. N eurologic: [place]-We[place]in 5.07 monofilament a bsent sensorium to midfoot via 5.07g monofilament.. M usculoskeletal: Muscle Strength M uscle strength is 5/5 in regards to dorsiflexion, plantarflexion, inversion, and eversion in bilateral lower extremities. ? Assessment: * Assessment: 1. T inea unguium - B35.1 (Primary) 2 . A cquired keratosis [keratoderma] palmaris et plantaris - L85.1 3 . P ain in right toe(s) - M79.674 ?4. P ain in left toe(s) - M79.675 5 . T ype 2 diabetes mellitus with other circulatory complications - E11.59 Plan: * Treatment: 2. A cquired keratosis [keratoderma] palmaris et plantaris Notes: A total of 1 corns or calluses, as described in the note above, were cut and pared utilizing a #15 blade * Follow Up: 1 0 - 12 weeks (Reason: At-Risk Foot care, sooner if problems develop.) * Billing Information: * Visit Code: 51629 Office Visit, Est Pt., Level 3. * Procedure Codes: * Sign off status: Completed true * Provider: Sukumar Livingston DPM Date: 04/17/2022 Generated for Raheem beebe/Osvaldo/José Miguel on: 0 04/14/2024 08:41 AM DISPUTE RESOLUTION ANALYST History and Physical Notes * HPI (History of Present Illness) Category Sub-Category Detail Notes Category Not es HPI General care Patient presents to the office for diabetic foot care. Patient states that their nails are thickened, elongated and painful. Patient states that it is aggravated by shoe gear. Onset is gradual., Patient denies taking blood thinners., Date last seen by Dr. Henriquez was ___October_.BS Examination Category Sub-Category Detail Notes Category Not es Dermatologic Skin findings: Skin is thin, at rophic and lacking pedal hair. Nail pathology: Nails 1-5 bilateral are elongated, thick, discolored, and dystrophic with subungual debris. They are painful to palpation Hypertrophic / hyperkeratotic lesion: di stal tip of the right 3rd digit. There is old sanguinous material, but no open wound or ulcer Neurologic [place]-We[place]in 5.07 monofilamen t absent sensorium to midfoot via 5.07g monofilament. Vascular Dorsalis pedis pulse: 0/4, bilateral Edema: No edema bilateral Capillary refill: greater than 3 secon ds Posterior tibial pulse: 1/4, bilaterally Physical Examination General appearance: Alert, pleasant, well-nourished and in no acute distress Musculoskeletal Muscle Strength Muscle strength is 5/5 in regards to dorsiflexion, plantarflexion, inversion, and eversion in bilateral lower extremities
--- OUTSIDE RECORDS SUMMARY | 2024-04-14 08:41 | XMS_ITS | Patient Health Record ---
Author Organization [facility] Address [address] [place], [place] [id number] Care Team Providers Care Diploma Medical Assistant Name Role Phone Jackson Amesn Unavailable Unavailable YARASHOLA Unavailable [phone] Allergies No Known Allergies Reason For Referral No Information Medications Medication SIG (Take, Route, Frequency, Duration) Notes Start Date End Date Status Pregabalin Active Glucagon Active HumaLOG Active Levothyroxine Sodium Active Lidocaine Active Loratadine Active Acetaminophen Active Magnesium Active ALPRAZolam Active Metoclopramide HCl A ctive busPIRone HCl Active Nystatin Active Calcium Active Omeprazole Active Diphenoxylate-Atropine Active Pravastatin Sodium A ctive Fluticasone Furoate Active FreeStyle Getachew 14 Day [place] Active Plan Of Treatment No Information Insurance Providers Payer Name Payer Address Payer Phone Subscriber Number Group Number Insured Name Patient Relationship to Insured Coverage Start Date Coverage End Date [facility] [address] [address] [place] [id number] Kyle Sanches Self - patient is the insured Medical (General) History Medical History History ICD Code acid reflux neuropathy stroke GERD Leg/Feet cramps Diabetic Thyroid Disease high blood pressure
--- OUTSIDE RECORDS SUMMARY | 2024-04-14 08:41 | XMS_ITS ---
Author Organization [facility] Address [address] [place], [place] [address] Care Team Providers Care Steward/Stewardess Room Name Role Phone Hui, Mikey Unavailable Unavailable SHOLA LIVINGSTON Unavailable [phone] REASON FOR VISIT *General care Encounters Encounter Location Date Provider Diagnosis [facility] [place] [address] [place], [place] [id number] 07/04/2023 SHOLA LIVINGSTON Plan Of Treatment No Information Progress Notes * Kyle HERNANDEZDOB: 8 (74 yo F)Acc No.[id number]:07/04/2023 Patient: Moody KOCHmerari Provider: Sukumar Livingston DPM :1950 A ge:73 Y S ex:Female Date:07/04/2023 Address:[address] , [address], [facility] Subjective: * Chief Complaints: * 1 . *General care. * Medical History: Objective: * Vitals: Assessment: Plan: * Treatment: * Billing Information: * Visit Code: * Procedure Codes: * Electronic signature of SHOLA LIVINGSTON DPM on 04/14/2024 at 08:41 AM ASSOCIATE DATA SCIENTIST Sign off status: Pending * Provider: Sukumar Livingston DPM Date: 07/04/2023 Generated for Raheem beebe/Osvaldo/eTransmitting on: 0 04/14/2024 08:41 AM ASSOCIATE DATA SCIENTIST
--- OUTSIDE RECORDS SUMMARY | 2024-04-14 08:41 | XMS_ITS | Clinical Summary ---
Author Organization [facility] Address [address] [place] [address] Care Team Providers Care Baggage Agent Supervisor Name Role Phone Unavailable Primary Care Provider Unavailabl e Social History Tobacco Use Types Packs/Day Years Used Date Smoking Tobacco: Never Assessed Comments Unknown Sex and Gender Information Value Date Recorded Sex Assigned at Not on file Legal Sex Female 4:53 PM CDT Gender Identity Not on file Sexual Orientation Not on file Plan of Treatment Health Maintenance Due Date Last Done Comments Colorectal Cancer Screening Colonoscopy (10 Years) 1950 Hepatitis C 01/05/1966 DTaP, Tdap and Td Vaccines ( 1 - Tdap) 01/05/1967 Zoster Vaccines (1 of 2) 01/05/1998 Dexa Scan (General) 01/05/2013 Pneumococcal Vaccine: 65+ Ye ars (1 of 1 - PCV) 01/05/2013 RSV Immunization or 60+ Years (1 - 1-dose 75+ series) 01/05/2023 COVID-19 Vaccine (2023-2 5 season) 2023 Influenza Adult (#1) 2023 Meningococcal B Vaccine Aged Out No l onger eligible based on patient's age to complete this topic Meningococcal Vaccine Aged Out No tray andre eligible based on patient's age to complete this topic RSV Immunizations Under 20 Months Aged Out No longer eligible based on patient's age to complete this topic
--- OUTSIDE RECORDS SUMMARY | 2024-04-14 08:41 | XMS_ITS ---
Author Organization [facility] Address [address] [facility] [address] [place], [place] [address] Care Team Providers Care Waterfront Director Name Role Phone HuiJacksonn Unavailable Unavailable SHOLA LIVINGSTON Unavailable [phone] REASON FOR VISIT Patient presents for at-risk foot care . The patient has painful toenails and calluses that are causing difficulty with ambulation and shoegear. The onset is gradual. The patient has diabetes mellitus Medications Medication SIG (Take, Route, Frequency, Duration) Notes Start Date End Date Status Pregabalin Active Acetaminophen Active Nystatin Active Omeprazole Active Pravastatin Sodium A ctive ALPRAZolam Active busPIRone HCl Active Calcium Active Diphenoxylate-Atropine Active Fluticasone Furoate Active Glucagon Active HumaLOG Active Levothyroxine Sodium Active Lidocaine Active FreeStyle Getachew 14 Day Krypton Active Loratadine Active Magnesium Active Metoclopramide HCl A ctive Vital Signs Height 62 in 04/04/2023 Weight 150 lbs 04/04/2023 BMI 27.43 kg/m2 04/04/2023 Height-cm 157.48 cm 04/04/2023 Weight-kg 68.04 kg 04/04/2023 Encounters Encounter Location Date Provider Diagnosis [facility] [address] [place], [place] [id number] 04/04/2023 SHOLA LIVINGSTON Tinea unguium B35.1 ; Acquired keratosis [keratoderma] palmaris et plantaris L85.1 ; Pain in right toe(s) M79.674 ; Pain in left toe(s) M79.675 and Type 2 diabetes mellitus with other circulatory complications E11.59 Assessments Encounter Date Diagnosis (ICD Code) Assessment Notes Treatment Notes Treatment Clinical Notes Section Notes 04/04/2023 Tinea unguium (ICD-10 - B35.1) Nails 1-5 Bilateral were debrided extensively with nail nippers and emery board, reducing length and girth to pink healthy tissue with any subungual debris and necrotic tissue removed 04/04/2023 Acquired keratosis [keratoderma] palmaris et plantaris (ICD-10 - L85.1) A total of 1 corns or calluses, as described in the note above, were cut and pared utilizing a #15 blade 04/04/2023 Pain in right toe(s) (ICD-10 - M79.674) 04/04/2023 Pain in left toe(s) (ICD-10 - M79.675) 04/04/2023 Type 2 diabetes mellitus with other circulatory [...] * Kyle HERNANDEZDOB: 8 (73 yo F)Acc No.[id number]:04/04/2023 Patient: Kyle KOHC Provider: Sukumar Livingston DPM :1950 A ge:73 Y S ex:Female Date:04/04/2023 Address:[address] [place] [address] [address] [facility] , [address] Subjective: * Chief Complaints: * 1 . Patient presents for at-risk foot care . [...] blood thinners., Date last seen by Dr. Ames was November 2022., Initials KE. * ROS: G eneral / Constitutional: Patient [...] b urning/ tingling, numbness. * Medical History: A janiya reflux, Neuropathy, Stroke, GERD, Leg/Feet cramps, Diabetic, Thyroid Disease, High blood pressure. * Medications: T aking Pregabalin , Taking Pravastatin Sodium , Taking Omeprazole , Taking Nystatin , Taking Metoclopramide HCl , Taking Magnesium , Taking Loratadine , Taking Lidocaine , Taking Levothyroxine Sodium , Taking HumaLOG , Taking Glucagon , Taking FreeStyle Getachew 14 Day [place] , Taking Fluticasone Furoate , Taking Diphenoxylate-Atropine [...] Edema: N o edema bilateral. N eurologic: [place]-Weinstin 5.07 monofilament a bsent sensorium to midfoot [...] develop.) * Billing Information: * Visit Code: 03661 Office Visit, Est Pt., Level 3. * Procedure Codes: * Sign off status: Completed true * Provider: Sukumar Livingston DPM Date: 0 04/04/2023 Generated for Raheem beebe/Osvaldo/José Miguel on: 0 04/14/2024 08:41 AM EXTRUSION TECHNICIAN History and Physical Notes * HPI (History of Present Illness) Category Sub-Category Detail Notes Category Not es HPI General care Patient presents to the office for diabetic foot care. Patient states that their nails are thickened, elongated and painful. Patient states that it is aggravated by shoe gear. Onset is gradual., Patient denies taking blood thinners., Date last seen by Dr. Ames was November 2022., Initials KE Examination Category Sub-Category Detail Notes Category Not es Dermatologic Skin findings: Skin is thin, at rophic and lacking pedal hair. Nail pathology: Nails 1-5 bilateral are elongated, thick, discolored, and dystrophic with subungual debris. They are painful to palpation Hypertrophic / hyperkeratotic lesion: di stal tip of the right 3rd digit. There is old sanguinous material, but no open wound or ulcer Neurologic [place]-Weinstin 5.07 monofilamen t absent sensorium to midfoot [...]
--- OUTSIDE RECORDS SUMMARY | 2024-04-14 08:41 | XMS_ITS | Clinical Summary ---
Author Organization [facility] Address [address], [facility] [address] [place] [address] Phone Care Team Providers Care Induction Coordination Power Engineer Name Role Phone Jose Haynes MD Primary Care Provider [phone] Jerman Maravilla DO Unavailable [phone] Allergies Active Allergy Reactions Criticality Noted Date Comments Conjugated Estrogens Unknown 04/11/2015 Estrogens Unknown 04/11/2015 Medroxyprogesterone Unknown 04/11/2015 Medications ALPRAZolam (XANAX) 0.5 MG Tablet Take 0.5 mg by mouth as needed. Active insulin glargine (LANTUS) 100 UNIT/ML SolutionIndicat ions:19 units nightly 16 Units by Subcutaneous route every morning. Indications: 19 units nightly Active indapamide (LOZOL) 1.25 MG Tablet Take 1.25 mg by mouth every morning. Active citalopram (CELEXA) 20 MG Tablet Take 20 mg by mouth daily. Active metoclopramide (REGLAN) 10 MG Tablet Take 10 mg by mouth 4 times daily. Active lisinopril (PRINIVIL, ZESTRIL) 20 MG Tablet Take 20 mg by mouth 2 times daily. Active pravastatin (PRAVACHOL) 20 MG Tablet Take 20 mg by mouth daily. Active verapamil (CALAN SR; ISOPTIN SR) 180 MG Tablet Controlled Release Take 180 mg by mouth nightly. Active levothyroxine (SYNTHROID) 100 MCG Tablet Take 1 Tab by mouth daily. 2 6 Active HUMALOG KWIKPEN 100 UNIT/ML Solution Pen-injector 8 Units by Subcutaneous route 3 times daily. 1 6 Active omeprazole (PRILOSEC) 40 MG CAPSULE DELAYED RELEASE TAKE ONE CAPSULE BY MOUTH DAILY 30 Cap 3 8 Active Active Problems Problem Noted Date Diagnosed Date Erosive esophagitis 11/06/2015 Hx of colonic polyps 11/06/2015 Immunizations Immunization Administration Dates Next Due Covid-19, Mrna, Lnp-s, Pf, 30 Mcg/0.3 Ml Dose (P fizer) 04/30/2020,04/09/2020 Family History Medical History Relation Name Comments Aneurysm Brother Heart Disease Father Lung Cancer Father Chronic Obstructive Pulmonary Disease Mother Cirrhosis Sister 1 Alzheimer's Disease Sister 2 Relation Name Status Comments Brother Father Mother Sister 1 Sister 2 Social History Tobacco Use Types Packs/Day Years Used Date Smoking Tobacco: Never Smokeless Tobacco: Never Alcohol Use Standard Drinks/Week Comments No 0 (1 standard drink = 0.6 oz pur e alcohol) Comments No Sex and Gender Information Value Date Recorded Sex Assigned at Not on file Legal Sex Female 7:53 PM CDT Gender Identity Not on file Sexual Orientation Not on file Last Filed Vital Signs Vital Sign Reading Time Taken Comments Blood Pressure 130/82 10/21/2016 3:15 PM CDT Pulse 88 10/21/2016 3:15 PM CDT Temperature 36.9 C (98.4 F) 02/12/2016 2:40 PM SCREEN PRINTING EQUIPMENT SETTER Respiratory Rate 16 10/21/2016 3:15 PM CDT Oxygen Saturation 90% 10/21/2016 3:15 PM CDT Inhaled Oxygen Concentration - - Weight 90.3 kg (199 lb) 10/21/2016 3:15 PM CDT Height 157.5 cm (5' 2 ) 10/21/2016 3:15 PM CDT Body Mass Index 36.4 10/21/2016 3:15 PM CDT Plan of Treatment Health Maintenance Due Date Last Done Comments Hepatitis C Virus (HCV) Screening 1950 Zoster Immunization (1 of 2) 01/05/1998 DEXA Bone Density 11/23/2018 11/23/2016 Respiratory Syncytial Virus (RSV) Immunization (Adult) (1 - 1-dose 75+ series) 01/05/2023 Influenza Immunization (#1) 10/30/202311/28, 11/22/2018, 11/23/2017, Additional history exists SARS-COV-2 Immunization ( season) 2023 01/08/2021, 04/30/2020, 04/09/2020 DTaP/Tdap/Td Immunization Discontinued 04/18/2014 TdaP Immunization Completed 04/18/2014 Colonoscopy High Risk Discontinued 05/10/2015 Colonoscopy Discontinued 05/10/2015 Colorectal Cancer Screening Discontinued Pneumococcal Immunization (50+ years) Completed 01/01/2018, 11/25/2015 Pneumococcal Immunization Combined Discontinued 01/01/2018, 11/25/2015 Cologuard Discontinued Hepatitis B Immunization Aged Out No longer eligible based on patient's age to complete this topic Immunochemical Fecal Occult Blood Discontinued Meningococcal Immunization (ACWY) Aged Out No longer eligible based on patient's age to complete this topic Rotavirus Immunization Aged Out No lo nger eligible based on patient's age to complete this topic Procedures Procedure Name Priority Date/Time Associated Diagnosis Comments ANGELIC BONE DENSITOMETRY AXIAL SKELETON Routine 11/23/2016 Gastroesophageal reflux disease without esophagitis Medication management HM COLONOSCOPY Routine 05/10/2015 11:49 AM SCREEN PRINTING EQUIPMENT SETTER from Last 3 Months or Most Recently Relevant to Health Maintenance Results * ANGELIC BONE DENSITOMETRY AXIAL SKELETON (11/23/2016) Anatomical Region Laterality Modality BODY N/A Other Charu Van GROUND CREWMAN, PROFESSOR OF APOLOGETICS IMG DEXA ORDERABL ES Final Result from Last 3 Months or Most Recently Relevant to Health Maintenance Insurance MEDICARE MEDICAID [place] Care Teams Induction Coordination Power Engineer Relationship Specialty Start Date End Date Jose Haynes MD [address] [place], [place] [phone] PCP - General Internal Medicine 04/10/15 Jerman Maravilla DO [address] [place] [address] Gastroenterology 04/10/15
[2024-04-14 08:54] LABS: Basophils Percent Auto 0.3 % (0.2-1.2); Eosinophils Percent Auto 0.1 % (0-4.4); Hematocrit 41.9 % (37.0-47.0); Hemoglobin 13.8 g/dL (12.0-15.0); Immature Granulocyte Absolute 0.03 K/mm3 (0.00-0.031); Immature Granulocyte Percent A 0.4 % (0-0.5); Lymphocytes Absolute Auto 0.19 K/mm3 (0.9-3.2); Lymphocytes Percent Auto 2.6 % (18.3-44.2); Mean Corpuscular HGB Conc 32.9 g/dl (32-36); Mean Corpuscular Hemoglobin 29.2 pg (26-34); Mean Corpuscular Volume 88.8 fl (80-100); Mean Platelet Volume 11.6 fl (7.4-10.4); Monocytes Absolute Auto 0.3 K/mm3 (0.1-0.6); Monocytes Percent Auto 3.9 % (2.6-8.5); Neutrophils Absolute Auto 6.9 K/mm3 (1.3-6.7); Neutrophils Percent Auto 92.7 % (45.5-73.1); Platelet Count Result 159 k/mm3 (150-375); Red Blood Count 4.72 M/mm3 (4.2-5.4); Red Cell Distribution Width 13.4 % (11.5-14.5); White Blood Count 7.4 K/mm3 (4.5-10.0)
[2024-04-14] MEDS: IPRATROPIUM 0.5 MG/ALBUTEROL SULFATE 2.5 MG AMPUL.NEB 3 ML INHALATION ×3 (09:00→21:40)
[2024-04-14 09:30] LABS: Alanine Aminotransferase 30 U/L (6-35); Albumin Level 4.2 g/dL (3.5-5.1); Alkaline Phosphatase 95 U/L (38-126); Anion Gap 12 mmol/L (4-12); Aspartate Amino Transferase 34 U/L (14-36); Bilirubin,Total 0.7 mg/dL (0.2-1.3); Blood Urea Nitrogen 15 mg/dL (7-17); Calcium 9.2 mg/dL (8.4-10.2); Carbon Dioxide 27 mmol/L (22-30); Chloride 97 mmol/L (98-107); Estimated CRCL calculation 68 ml/min; Estimated Glomerular Filt Rate > 60; Glucose 249 mg/dL (65-110); Influenza A QL RT-PCR Positive (Negative); Influenza B QL RT-PCR Negative (Negative); Potassium 3.9 mmol/L (3.4-5.0); RSV RNA, RT-PCR Positive (Negative); SARS-CoV-2 RNA PCR Negative (Negative); Sodium 136 mmol/L (137-145)
[2024-04-14] MEDS: OSELTAMIVIR PHOSPHATE 75 MG CAPSULE PO ×2 (09:59→20:45)
--- NOTE | 2024-04-14 11:31 | ED_ITS ---
HPI - Weakness General Chief complaint: Weakness Stated complaint: weakness/near syncope/fall Patient is a 74-year-old female who presents ER with weakness. Too weak to walk today which is new for her. She did fall and have syncopal episode. No chest pain or chest pressure. She reports cough for 2 days and increasing shortness of breath. No complaints of pain at this time. She is not on blood thinning medication. Related Data Home Medications ?Medication ?Instructions ?Recorded ?Confirmed ?Last Taken ?Type cyclobenzaprine 10 mg tablet 10 mg PO TID PRN Muscle Spasm 08/16/23 04/14/24 Unknown History Allergies Allergy/AdvReac Type Severity Reaction Status Date / Time estrogens, conjugated (From Allergy Mild Rash Verified 04/14/24 08:42 Prempro) medroxyprogesterone (From Allergy Mild Rash Verified 04/14/24 08:42 Prempro) Review of Systems 2 Review of Systems: All systems reviewed & are unremarkable except as noted in HPI and below Constitutional: Constitutional: Reports fatigue and Reports fever(s) ENT: Reports system reviewed and no additional complaints, except as documented Cardiovascular: Cardiovascular: Reports no additional cardiovascular complaints Respiratory: Respiratory: Reports chest congestion, Reports cough, Reports dyspnea and Denies wheezing Gastrointestinal: Gastrointestinal: Reports no additional gastrointestinal complaints PENDING SALE TO [facility] Past Medical History Medical History (Updated 04/14/24 @ 12:49 by Rina Leos APRN) TIA (transient ischemic attack) Diabetic neuropathy Hemorrhoids Colon cancer screening Hiatal hernia Erosive esophagitis With history of esophageal ulcers. Chronic GERD Osteoporosis Hypothyroidism Type 1 diabetes mellitus Diagnosed in 1993. On oral medication for many years before transitioning to insulin. C-peptide less than 0.1, KHUSHBOO > 50 on labs in March 2016. Hyperlipidemia Anxiety Thyroid goiter Vitamin D deficiency Diabetic retinopathy Legally blind secondary to such. 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 Depression Macular degeneration Hypertension Surgical History Surgical History History of orthopedic surgery Including surgeries to the right elbow, shoulder, and toe. History of surgical procedure on eye proper using laser For diabetic retinopathy. History of cardiac catheterization History of bilateral cataract extraction History of colonoscopy with polypectomy History of esophageal dilatation (01/2017) For esophageal stricture. History of cholecystectomy (2001) Family History Family History Father Family history of elevated blood lipids Hypertension Family history of malignant neoplasm of kidney Family history of lung cancer Mother Family history of elevated blood lipids Sibling Family history of elevated blood lipids Family history of thyroid disease Hypertension Family history of diabetes mellitus in first degree relative Social History Social History Social History: Surrogate decision maker: Marisol Cristina (sister) or Alejandra Saeed (daughter). Code status: Full code. Smoking status: Never smoker Second hand tobacco smoke exposure: No Alcohol intake: never Substance use: never Substance use type: does not use Do You Feel Safe in your Home?: Yes Lack of Transportation: No Lack of Food: Never True Current Housing: I Have Housing Concerned About Future Housing: No Difficulty Paying Gas/Electric Bills: No Difficulty Paying for Meds: No Currently Unemployed: No Education: High School Diploma/GED Difficulty w/ Childcare or Family Care: No Living arrangements: assisted living Additional living arrangements comments: Lives in assisted living at [facility]. 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 Spiritual care concerns: No Exam 2 Narrative: GENERAL: Well-appearing, well-nourished, and in no acute distress. HEAD: Normocephalic, atraumatic. ENT: Mucous membranes moist. CHEST: Rales noted right mid lower lung zones. No respiratory distress. HEART: Regular rate and rhythm. Normal peripheral pulses. ABDOMEN: Soft, nontender, nondistended. EXTREMITIES: Normal range of motion. No edema. SKIN: Warm, dry, no rash. NEURO: Alert and oriented x3. PSYCH: Normal mood and affect. Course Course Emergency Course: Patient resting comfortably. Started on Tamiflu for influenza. Requiring 2 L nasal cannula oxygen for hypoxia. She did receive a DuoNeb. Will admit for observation continued breathing treatments. Vital Signs Vital signs: Vital Signs Temperature 99.4 F 04/14/24 08:27 Pulse Rate 92 04/14/24 08:27 Respiratory Rate 22 H 04/14/24 08:27 Blood Pressure 152/70 H 04/14/24 08:27 Pulse Oximetry 91 04/14/24 08:27 Oxygen Delivery Nasal Cannula 04/14/24 08:27 Oxygen Flow Rate 2 04/14/24 08:27 Temperature 97.6 F 04/15/24 06:00 Pulse Rate 79 04/15/24 14:10 Respiratory Rate 20 04/15/24 14:10 Blood Pressure 125/55 L 04/15/24 12:33 Pulse Oximetry 97 04/15/24 14:01 Oxygen Delivery Room Air 04/15/24 14:01 Oxygen Flow Rate 1 04/15/24 09:58 Fraction of Inspired Oxygen 21 04/15/24 14:01 MDM - Weakness Lab Data 04/15/24 05:20 04/15/24 05:20 Labs: Lab Results 04/14/24 Range/Units 08:46 WBC 7.4 (4.5-10.0) K/mm3 RBC 4.72 (4.2-5.4) M/mm3 Hgb 13.8 (12.0-15.0) g/dL Hct 41.9 (37.0-47.0) % MCV 88.8 (80-100) fl MCH 29.2 (26-34) pg MCHC 32.9 (32-36) g/dl RDW 13.4 (11.5-14.5) % Plt Count 159 (150-375) k/mm3 MPV 11.6 H (7.4-10.4) fl Immature Gran % (Auto) 0.4 (0-0.5) % Neut % (Auto) 92.7 H (45.5-73.1) % Lymph % (Auto) 2.6 L (18.3-44.2) % [place] % (Auto) 3.9 (2.6-8.5) % Eos % (Auto) 0.1 (0-4.4) % Baso % (Auto) 0.3 (0.2-1.2) % Lymph # (Auto) 0.19 L (0.9-3.2) K/mm3 [place] # (Auto) 0.3 (0.1-0.6) K/mm3 Eos # (Auto) 0.0 (0-0.3) K/mm3 Baso # (Auto) 0.0 (0.0-0.1) K/mm3 Abs Immat Gran (auto) 0.03 (0.00-0.031) K/mm3 Absolute Neuts (auto) 6.9 H (1.3-6.7) K/mm3 Absolute Nucleated RBC 0.000 (0.0-0.012) K/mm3 Nucleated RBC % 0.0 (0.0-0.2) % Sodium 136 L (137-145) mmol/L Potassium 3.9 (3.4-5.0) mmol/L Chloride 97 L (98-107) mmol/L Carbon Dioxide 27 (22-30) mmol/L Anion Gap 12 (4-12) mmol/L BUN 15 (7-17) mg/dL Creatinine 0.62 L (0.7-1.0) mg/dL Estim Creat Clear Calc 68 ml/min Estimated GFR > 60 (59 - ) Glucose 249 H (65-110) mg/dL Calcium 9.2 (8.4-10.2) mg/dL Total Bilirubin 0.7 (0.2-1.3) mg/dL AST 34 (14-36) U/L ALT 30 (6-35) U/L Alkaline Phosphatase 95 (38-126) U/L Troponin I < 0.012 (0.000-0.034) ng/mL Total Protein 7.0 (6.3-8.2) g/dL Albumin 4.2 (3.5-5.1) g/dL Influenza A (RT-PCR) Positive A (Negative) Influenza B (RT-PCR) Negative (Negative) RSV (RT-PCR) Positive A (Negative) SARS-CoV-2 RNA (RT-PCR) Negative (Negative) Imaging Data Radiologist's impression: ITS Impressions Chest X-Ray 04/14/24 08:57 IMPRESSION: 1. Mild bibasilar atelectasis. 2. Moderate-sized hiatal hernia. Head CT 04/14/24 12:18 IMPRESSION: 1. No fracture or acute intracranial process. 2. 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 Discharge Plan Discharge Clinical Impression: Influenza A, Hypoxia Respiratory syncytial virus (RSV) Qualifiers: RSV infection type: unspecified Qualified Code(s): B33.8 - Other specified viral diseases Patient Disposition: Still a Patient Condition: Stable
--- NOTE | 2024-04-14 12:19 | PM.IMHP ---
H&P: HPI History of Present Illness Date/Time: 04/14/24 12:19 Chief Complaint: Weakness, Syncope Narrative: 74 y/o F presents here with generalized weakness and syncope with PMH of DM1, legally blind secondary to diabetic retinopathy, CVA, esophageal ulcers/erosive esophagitis, anxiety, depression, hypothyroidism, hyperlipidemia, and hypertension. The patient presents here from [facility] via EMS for further evaluation of generalized weakness and collapse/ syncope . The patient reports she developed a nonproductive cough, fever, fogginess , poor appetite, and shortness of breath over the last 2 days. Patient then developed significant generalized weakness today. The patient is typically able to ambulate with walker. Now reporting she is too weak to walk. The patient additionally had a syncopal episode. Patient reports she had no warning or prodrome before she collapsed. She reports no head strike and no loss of consciousness. Denies any neck pain or headache post fall. She was unable to get up independently which prompted the facility to call EMS. Upon their arrival the patient was found lying on the floor and O2 saturation was 88% room air. She was placed on 2L NC with improvement in to the low 90s. She reports sick contacts within her facility. Initial VS at presentation: 99.4? F, HR 92, RR 22, 152/70, and 91% on 2L NC. ED workup showed: No leukocytosis, no anemia, no significant electrolyte derangements, creatinine 0.62 and GFR >60, glucose 249. Patient tested positive for Influenza A and RSV. CXR showed mild bibasilar atelectasis in moderate-sized hiatal hernia. Head CT showed no fracture acute intracranial process, normal age related changes of the brain and a couple small old infarcts in the bilateral cerebral hemispheres. Review of Systems Review of Systems: All systems reviewed & are unremarkable except as noted in HPI and below [facility] Past Medical History Medical History (Updated 04/14/24 @ 12:49 by Rina Leos APRN) TIA (transient ischemic attack) Diabetic neuropathy Hemorrhoids Colon cancer screening Hiatal hernia Erosive esophagitis With history of esophageal ulcers. Chronic GERD Osteoporosis Hypothyroidism Type 1 diabetes mellitus Diagnosed in 1993. On oral medication for many years before transitioning to insulin. C-peptide less than 0.1, KHUSHBOO > 50 on labs in March 2016. Hyperlipidemia Anxiety Thyroid goiter Vitamin D deficiency Diabetic retinopathy Legally blind secondary to such. 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 Depression Macular degeneration Hypertension Surgical History Surgical History History of orthopedic surgery Including surgeries to the right elbow, shoulder, and toe. History of surgical procedure on eye proper using laser For diabetic retinopathy. History of cardiac catheterization History of bilateral cataract extraction History of colonoscopy with polypectomy History of esophageal dilatation (01/2017) For esophageal stricture. History of cholecystectomy (2001) Family History Family History Father Family history of elevated blood lipids Hypertension Family history of malignant neoplasm of kidney Family history of lung cancer Mother Family history of elevated blood lipids Sibling Family history of elevated blood lipids Family history of thyroid disease Hypertension Family history of diabetes mellitus in first degree relative Social History Social History Social History: Surrogate decision maker: Marisol Cristina (sister) or Alejandra Saeed (daughter). Code status: Full code. Smoking status: Never smoker Second hand tobacco smoke exposure: No Alcohol intake: never Substance use: never Substance use type: does not use Do You Feel Safe in your Home?: Yes Lack of Transportation: No Lack of Food: Never True Current Housing: I Have Housing Concerned About Future Housing: No Difficulty Paying Gas/Electric Bills: No Difficulty Paying for Meds: No Currently Unemployed: No Education: High School Diploma/GED Difficulty w/ Childcare or Family Care: No Living arrangements: assisted living Additional living arrangements comments: Lives in assisted living at [facility]. 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 Spiritual care concerns: No Meds Home Medications and Allergies Home Medications ?Medication ?Instructions ?Recorded ?Confirmed ?Type blood sugar diagnostic (OneTouch #400 ea 10/29/19 01/11/24 Rx Verio test strips) flash glucose scanning reader #1 ea 11/29/19 01/11/24 Rx (FreeStyle Getachew 2 [place]) bethanechol chloride 25 mg tablet 25 mg PO BID #60 tabs 08/20/20 01/11/24 Rx magnesium oxide 400 mg (241.3 mg 400 mg PO DAILY #30 tabs 08/20/20 01/11/24 Rx magnesium) tablet ferrous sulfate 325 mg (65 mg 325 mg PO DAILY #30 tabs 12/03/20 01/11/24 Rx iron) tablet glucagon 1 mg solution for 1 mg subcut ONCE PRN hypoglycemia 02/12/21 01/11/24 Rx injection (Glucagon Emergency Kit) #1 ea acetaminophen 500 mg tablet 500 mg PO Q6H PRN pain #120 tabs 02/13/21 01/11/24 Rx (Tylenol Extra Strength) sertraline 100 mg tablet 100 mg PO DAILY #90 tabs 02/25/21 01/11/24 Rx omeprazole 40 mg capsule,delayed 40 mg PO BID 1 month #60 caps 04/23/21 01/11/24 Rx release metoclopramide HCl 5 mg tablet 5 mg PO DAILY 3 months #90 tabs 06/05/21 01/11/24 Rx buspirone 7.5 mg tablet 7.5 mg PO BID #60 tabs 12/14/21 01/11/24 Rx docusate sodium 100 mg tablet 100 mg PO DAILY PRN constipation 02/10/22 01/11/24 Rx #30 tabs diphenoxylate-atropine 2.5 1 - 2 tablet PO QID PRN diarrhea 05/17/22 01/11/24 Rx mg-0.025 mg tablet (Lomotil) #30 tabs cholecalciferol (vitamin D3) 25 25 mcg PO DAILY #90 tabs 06/03/22 01/11/24 Rx mcg (1,000 unit) tablet lidocaine-prilocaine 2.5 %-2.5 % See Rx Instructions .Route 08/03/22 01/11/24 Rx topical cream .COMPLEX #60 grams loratadine 10 mg tablet 10 mg PO DAILY #30 tabs 09/13/22 01/11/24 Rx calcium 600 mg (as 1 tablet PO BID #180 tabs 11/15/22 01/11/24 Rx carbonate)-vitamin D3 5 mcg (200 unit) tablet (Calcium 600 + D(3)) zoledronic acid 5 mg/100 mL in 5 ea IV .yearly 11/22/22 01/11/24 History mannitol 5 %-water intravenous piggybck (Reclast) fluticasone propionate 50 2 spray intranasal DAILY #16 grams 05/24/23 01/11/24 Rx mcg/actuation nasal spray,suspension (Flonase Allergy Relief) capsaicin 0.1 % topical cream 1 applic topical BID PRN pain #60 06/20/23 01/11/24 Rx grams ketoconazole 2 % topical cream 1 applic topical BID #60 grams 06/29/23 01/11/24 Rx cyclobenzaprine 10 mg tablet 10 mg PO TID PRN Muscle Spasm 08/16/23 01/11/24 History aspirin 81 mg tablet,delayed 81 mg PO QAM #30 tabs 08/24/23 01/11/24 Rx release flash glucose sensor (FreeStyle #8 ea 09/22/23 01/11/24 Rx Getachew 2 Sensor kit) insulin lispro 100 unit/mL See Rx Instructions .Route 09/22/23 01/11/24 Rx subcutaneous pen (Humalog KwikPen .COMPLEX #27 mL (U-100) Insulin) lisinopril 10 mg tablet 10 mg PO DAILY #90 tabs 09/22/23 01/11/24 Rx pravastatin 20 mg tablet 20 mg PO DAILY #90 tabs 09/22/23 01/11/24 Rx levothyroxine 137 mcg tablet 137 mcg PO DAILY 90 days #90 tabs 09/26/23 01/11/24 Rx incontinence pad, liner, disp #60 ea 11/07/23 01/11/24 Rx insulin degludec 200 unit/mL (3 See Rx Instructions .Route 01/10/24 01/11/24 Rx mL) subcutaneous pen (Tresiba .COMPLEX #9 mL FlexTouch U-200 insulin) hydrocortisone 2.5 % topical cream 1 applic RECTAL TID PRN 01/11/24 01/11/24 Rx with perineal applicator hemorrhoids #30 grams alprazolam 0.25 mg tablet 0.25 mg PO DAILY PRN anxiety #30 02/04/24 Rx tabs pregabalin 150 mg capsule 150 mg PO Q8H 90 days #270 caps 03/08/24 Rx furosemide 20 mg tablet 20 mg PO QAM #10 tabs 03/16/24 Rx Allergies Allergy/AdvReac Type Severity Reaction Status Date / Time estrogens, conjugated (From Allergy Mild Rash Verified 04/14/24 08:42 Prempro) medroxyprogesterone (From Allergy Mild Rash Verified 04/14/24 08:42 Prempro) Vital Signs Vital Signs - 24 hr 04/14/24 08:27 04/14/24 08:40 04/14/24 08:41 Temperature 99.4 F Pulse Rate 92 92 Respiratory Rate 22 H Blood Pressure 152/70 H Pulse Oximetry 91 92 Oxygen Delivery Nasal Cannula Nasal Cannula Oxygen Flow Rate 2 2 Fraction of Inspired Oxygen 04/14/24 09:00 04/14/24 09:00 04/14/24 09:11 Temperature Pulse Rate 91 97 Respiratory Rate 30 H 28 H Blood Pressure Pulse Oximetry 92 Oxygen Delivery Nasal Cannula Oxygen Flow Rate 2 Fraction of Inspired Oxygen 28 04/14/24 10:09 04/14/24 11:24 Temperature Pulse Rate 102 H 102 H Respiratory Rate 33 H 23 H Blood Pressure 119/54 L Pulse Oximetry 92 Oxygen Delivery Oxygen Flow Rate Fraction of Inspired Oxygen Exam Const: General: comfortable and no acute distress Other: , elderly, modestly ill-appearing. HENMT: Face/Nose/Sinus: Normal nares present Mouth: Yes moist mucous membranes Other: NC in place Eyes: General: appearance normal, both eyes and all related structures Sclera: sclerae normal Pupils: Equal, round and reactive pupils present EOM: EOMs intact bilaterally Resp: Auscultation: clear to auscultation bilaterally Other: +tachypnea with conversational dyspnea. No overt distress. No wheezing or crackles on exam. Cardio: Rate: regular rate Rhythm: regular rhythm Other: S1-S2 present without murmur, rub, ectopy Skin: General skin exam: normal color and no rashes or lesions noted Wounds: no wounds Neuro: Speech: normal speech Motor exam (neuro): 5/5 motor strength present throughout Sensory Exam: normal sensation Other: A&O x4 Extrem: General: normal to inspection Psych: Mental Status: mental status grossly normal Affect: normal affect Other: Good insight judgment, pleasant H&P: Results Labs Labs: Short CBC 04/14/24 Range/Units 08:46 WBC 7.4 (4.5-10.0) K/mm3 Hgb 13.8 (12.0-15.0) g/dL Hct 41.9 (37.0-47.0) % Plt Count 159 (150-375) k/mm3 [facility] 04/14/24 08:46 Sodium 136 L Potassium 3.9 Chloride 97 L Carbon Dioxide 27 BUN 15 Creatinine 0.62 L Glucose 249 H Calcium 9.2 Liver Function 04/14/24 Range/Units 08:46 Total Bilirubin 0.7 (0.2-1.3) mg/dL AST 34 (14-36) U/L ALT 30 (6-35) U/L Alkaline Phosphatase 95 (38-126) U/L Albumin 4.2 (3.5-5.1) g/dL Assessment and Plan Assessment and plan (1) Syncope: Qualifiers: Syncope type: unspecified Qualified Code(s): R55 - Syncope and collapse Code(s): R55 - Syncope and collapse Status: Acute Assessment and Plan: - EKG, initial: Sinus rhythm, right bundle branch block, baseline artifact. When compared to EKG done in August of 2023, no significant changes. - CXR: 1. Mild bibasilar atelectasis. 2. Moderate-sized hiatal hernia. - head CT: 1. No fracture or acute intracranial process. 2. 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 - WBC 7.4, hemoglobin 13.8, initial glucose 249 - obtain orthostatics - fall precautions - telemetry monitoring Suspect syncope is secondary to the patient's new hypoxia due to her current viral infections. No pneumonia on chest x-ray. (2) Influenza A: Code(s): J10.1 - Influenza due to other identified influenza virus with other respiratory manifestations Status: Acute Assessment and Plan: - tested positive for influenza A on 04/14 - Tamiflu 75 mg BID - supportive care: Tylenol p.r.n. Mucinex basil DuoNeb p.r.n. Tessalon Perles p.r.n. Lozenge p.r.n. IV fluids: LR at 150 mL/hr x1L - monitor WBC/CBC - currently requiring increased supplemental O2. Maintain O2 sat above 92%. Wean as tolerated. (3) Respiratory syncytial virus (RSV): Qualifiers: RSV infection type: unspecified Qualified Code(s): B33.8 - Other specified viral diseases Code(s): B33.8 - Other specified viral diseases Status: Acute Assessment and Plan: - tested positive for RSV on 04/14 - supportive care, see above (4) Type 1 diabetes mellitus: Qualifiers: Diabetes mellitus complication detail: without coma Diabetes mellitus complication status: with hypoglycemia Qualified Code(s): E10.649 - Type 1 diabetes mellitus with hypoglycemia without coma Code(s): E10.9 - Type 1 diabetes mellitus without complications Status: Chronic Assessment and Plan: - hypoglycemia protocol - POC blood glucose ACHS - correct regimen ordered - moderate dose TIDWM, based off BMI - A1C 7.8% on 08/23/2023, update (5) Hypertension: Qualifiers: Hypertension type: unspecified Qualified Code(s): I10 - Essential (primary) hypertension Code(s): I10 - Essential (primary) hypertension Status: Chronic Assessment and Plan: - chronic, currently 119/54 - continue home medications - monitor Plan Diet: Diabetic GI Prophylaxis: Not currently indicated DVT Prophylaxis: SCDs Lines: Peripheral Code Status: Full code Quality VTE Prophylaxis VTE prophylaxis: mechanical ordered Hospitalist MIPS Advance Care Plan I have confirmed that the patient's Advanced Care Plan is present, code status is documented, or surrogate decision maker is listed in patient medical record.: Yes Medication Reconciliation I have utilized all available resources to obtain, update and review the patients current medications (includes all prescriptions, OTC, herbals, cannabis, and nutritional supplements).: Yes
--- NOTE | 2024-04-14 12:32 | PC.NURSE ---
Patient taken to bathroom via wheelchair to collect urine--patient dropped the cup. Patient without oxygen during bathroom trip. Oxygen on room air was 90% although patient denied shortness of breath
[2024-04-14 13:53] LABS: Troponin I < 0.012 ng/mL (0.000-0.034)
[2024-04-14] MEDS: LACTATED RINGERS 1,000 ML 150 ML IV CONT (15:18)
[2024-04-14] MEDS: guaiFENesin 12 HR 600 MG TABCR PO ×2 (15:21→20:45)
[2024-04-14 15:28] LABS: Glucose Point of Care 251 mg/dl (65-105)
[2024-04-14] MEDS: INSULIN ASPART (*BKC) 100 UNITS/ML SUB-Q (15:29)
--- NOTE | 2024-04-14 16:42 | ADMGEN ---
This patient, Kyle Sanches, was admitted to 2 Medical Room 258-. Patient/family oriented to hospital policies and general routines including ID bracelet, bed and alarms, visiting hours, pain management, procedures, bathroom and other care routines, personal items, smoking policy, room service/diet, and visiting hours. Information on how to activate the Rapid Response Team has been discussed. Patient/Family are encouraged to report perceived risks to care and to ask questions if they do not understand what they are told or what they should do.
[2024-04-14] MEDS: BENZONATATE 100 MG CAPSULE PO (17:43)
[2024-04-14 17:52] LABS: Glucose Point of Care 174 mg/dl (65-105)
[2024-04-14 18:09] LABS: Troponin I < 0.012 ng/mL (0.000-0.034)
[2024-04-14 20:53] LABS: Troponin I < 0.012 ng/mL (0.000-0.034)
[2024-04-14 21:52] LABS: Glucose Point of Care 209 mg/dl (65-105)
[2024-04-14] MEDS: SODIUM CHLORIDE 0.9% IV 1,000 ML 125 ML IV CONT (22:59)
[2024-04-14] MEDS: PREGABALIN (*CRX) 75 MG CAPSULE 150 MG PO (22:59)
[2024-04-15] VITALS (13 sets, daily range): BP systolic 125–141; BP diastolic 52–61; PULSE 77–96; RESP 18–22; TEMP 36.1–37.2; O2SAT 94–97
[2024-04-15] MEDS: IPRATROPIUM 0.5 MG/ALBUTEROL SULFATE 2.5 MG AMPUL.NEB 3 ML INHALATION ×4 (02:22→21:27)
[2024-04-15] MEDS: PREGABALIN (*CRX) 75 MG CAPSULE 150 MG PO ×3 (05:40→21:20)
[2024-04-15] MEDS: LEVOTHYROXINE SODIUM 112 MCG TABLET PO (05:40)
[2024-04-15] MEDS: LEVOTHYROXINE SODIUM 25 MCG TABLET PO (05:40)
[2024-04-15 06:05] LABS: Basophils Percent Auto 0.2 % (0.2-1.2); Hematocrit 35.2 % (37.0-47.0); Hemoglobin 11.2 g/dL (12.0-15.0); Immature Granulocyte Absolute 0.03 K/mm3 (0.00-0.031); Immature Granulocyte Percent A 0.4 % (0-0.5); Lymphocytes Percent Auto 7.3 % (18.3-44.2); Mean Corpuscular HGB Conc 31.8 g/dl (32-36); Mean Corpuscular Hemoglobin 28.8 pg (26-34); Mean Corpuscular Volume 90.5 fl (80-100); Mean Platelet Volume 12.1 fl (7.4-10.4); Monocytes Absolute Auto 0.5 K/mm3 (0.1-0.6); Monocytes Percent Auto 6.4 % (2.6-8.5); Neutrophils Absolute Auto 7.1 K/mm3 (1.3-6.7); Neutrophils Percent Auto 85.7 % (45.5-73.1); Platelet Count Result 130 k/mm3 (150-375); Red Blood Count 3.89 M/mm3 (4.2-5.4); Red Cell Distribution Width 13.8 % (11.5-14.5); White Blood Count 8.3 K/mm3 (4.5-10.0)
[2024-04-15 06:23] LABS: Alanine Aminotransferase 30 U/L (6-35); Albumin Level 3.4 g/dL (3.5-5.1); Alkaline Phosphatase 74 U/L (38-126); Anion Gap 5 mmol/L (4-12); Aspartate Amino Transferase 35 U/L (14-36); Bilirubin,Total 0.9 mg/dL (0.2-1.3); Blood Urea Nitrogen 16 mg/dL (7-17); Calcium 8.4 mg/dL (8.4-10.2); Carbon Dioxide 27 mmol/L (22-30); Chloride 100 mmol/L (98-107); Estimated CRCL calculation 70 ml/min; Estimated Glomerular Filt Rate > 60; Glucose 251 mg/dL (65-110); Magnesium 1.6 mg/dL (1.6-2.3); Phosphorus 2.8 mg/dL (2.5-4.5); Potassium 3.5 mmol/L (3.4-5.0); Sodium 132 mmol/L (137-145)
[2024-04-15 06:24] LABS: Add Urine Microscopic? YES; Appearance Urine Clear (Clear); Bacteria Urine None Seen /hpf; Bilirubin Urine Negative (Negative); Blood Urine Negative (Negative); Color Urine Yellow (Yellow); Glucose Urine UA 3+ mg/dL (Negative); Ketones Urine 1+ mg/dL (Negative); Leukocyte Esterase Ur Trace LEU/UL (Negative); Nitrate Urine Negative (Negative); Non Pathogenic Casts 0-2; Protein Urine Trace mg/dL (Negative); RBC Urine 0-2 /hpf (0-2); Specific Grav Ur 1.022 (1.001-1.035); Squamous Epithelial Cell Urine None Seen /hpf (Few); Urobilinogen Urine 0.2 mg/dL (<2.0); pH Urine 6.5 (5.0-9.0)
[2024-04-15 06:37] LABS: CRP 12.5 mg/dL (<1.0)
[2024-04-15 06:45] LABS: Hemoglobin A1C 8.6 % (<5.7)
[2024-04-15] MEDS: SODIUM CHLORIDE 0.9% IV 1,000 ML 125 ML IV CONT ×2 (07:30→16:21)
[2024-04-15 08:23] LABS: Glucose Point of Care 249 mg/dl (65-105)
[2024-04-15] MEDS: SERTRALINE HCL 50 MG TABLET 100 MG PO (09:02)
[2024-04-15] MEDS: PANTOPRAZOLE 40 MG TABLET PO ×2 (09:03→20:42)
[2024-04-15] MEDS: guaiFENesin 12 HR 600 MG TABCR PO ×2 (09:03→20:42)
[2024-04-15] MEDS: ASPIRIN 81 MG ENTERIC TABLET PO (09:03)
[2024-04-15] MEDS: lisinopriL 10 MG TABLET PO (09:03)
[2024-04-15] MEDS: OSELTAMIVIR PHOSPHATE 75 MG CAPSULE PO ×2 (09:03→20:42)
[2024-04-15] MEDS: PRAVASTATIN SODIUM 20 MG TABLET PO (09:03)
[2024-04-15] MEDS: MAGNESIUM OXIDE 400 MG TABLET PO (09:03)
[2024-04-15] MEDS: BENZONATATE 100 MG CAPSULE PO ×3 (09:03→17:35)
[2024-04-15] MEDS: busPIRone HCL 2.5 MG TABLET 7.5 MG PO ×2 (09:03→17:35)
[2024-04-15] MEDS: METOCLOPRAMIDE HCL 5 MG TABLET PO (09:04)
[2024-04-15] MEDS: LORATADINE 10 MG TABLET PO (09:04)
[2024-04-15] MEDS: INSULIN GLARGINE (*BKC) 100 UNITS/ML 16 UNITS SUB-Q (09:04)
[2024-04-15] MEDS: CHOLECALCIFEROL 1,000 UNITS TABLET 1000 UNITS PO (09:04)
[2024-04-15] MEDS: BETHANECHOL CHLORIDE 25 MG TABLET PO ×2 (09:04→17:35)
[2024-04-15] MEDS: INSULIN ASPART (*BKC) 100 UNITS/ML SUB-Q ×5 (09:05→17:35)
[2024-04-15] MEDS: MICONAZOLE NITRATE 2% CREAM 30 GM TUBE 1 APPLIC TOPICAL ×2 (09:08→17:35)
[2024-04-15 12:21] LABS: Glucose Point of Care 263 mg/dl (65-105)
--- NOTE | 2024-04-15 12:24 | P.PNIM_ITS ---
Progress Note: A&P Assessment and Plan (1) Syncope: Qualifiers: Syncope type: unspecified Qualified Code(s): R55 - Syncope and collapse Code(s): R55 - Syncope and collapse Status: Acute Assessment and Plan: - EKG, initial: Sinus rhythm, right bundle branch block, baseline artifact. When compared to EKG done in August of 2023, no significant changes. - CXR: 1. Mild bibasilar atelectasis. 2. Moderate-sized hiatal hernia. - head CT: 1. No fracture or acute intracranial process. 2. 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 - WBC 7.4, hemoglobin 13.8, initial glucose 249 - obtain orthostatics - fall precautions - telemetry monitoring Suspect syncope is secondary to the patient's new hypoxia due to her current viral infections. No pneumonia on chest x-ray. (2) Influenza A: Code(s): J10.1 - Influenza due to other identified influenza virus with other respiratory manifestations Status: Acute Assessment and Plan: - tested positive for influenza A on 04/14 - Tamiflu 75 mg BID - supportive care: Tylenol p.r.n. Mucinex basil DuoNeb p.r.n. Tessalon Perles p.r.n. Lozenge p.r.n. IV fluids: LR at 150 mL/hr x1L - monitor WBC/CBC - Sa02 97% RA. -WBC today 8.3. (3) Respiratory syncytial virus (RSV): Qualifiers: RSV infection type: unspecified Qualified Code(s): B33.8 - Other specified viral diseases Code(s): B33.8 - Other specified viral diseases Status: Acute Assessment and Plan: - tested positive for RSV on 04/14 - supportive care, see above (4) Type 1 diabetes mellitus: Qualifiers: Diabetes mellitus complication detail: without coma Diabetes mellitus complication status: with hypoglycemia Qualified Code(s): E10.649 - Type 1 diabetes mellitus with hypoglycemia without coma Code(s): E10.9 - Type 1 diabetes mellitus without complications Status: Chronic Assessment and Plan: - hypoglycemia protocol - POC blood glucose ACHS - correct regimen ordered - moderate dose TIDWM, based off BMI - A1C 7.8% on 08/23/2023, update (5) Hypertension: Qualifiers: Hypertension type: unspecified Qualified Code(s): I10 - Essential (primary) hypertension Code(s): I10 - Essential (primary) hypertension Status: Chronic Assessment and Plan: - chronic, currently 141/52 - continue home medications - monitor Plan Diet: Diabetic GI Prophylaxis: Not currently indicated DVT Prophylaxis: SCDs Lines: Peripheral Code Status: Full code Subjective Date/time seen: 04/15/24 12:24 Interval history: Patient sitting up in chair. Patient reports feeling better today. Patient denies chest pain, palpitations, headache, dizziness, nausea, or vomiting. Review of Systems Review of Systems: All systems reviewed & are unremarkable except as noted in HPI and below Exam Const: General: comfortable and no acute distress Resp: Effort & Inspection: normal respiratory effort Auscultation: clear to auscultation bilaterally Other: slightly diminished. Cardio: Rate: regular rate Rhythm: regular rhythm GI: GI Palp: Yes Soft to palpation Auscultation: normal bowel sounds Neuro: Speech: normal speech Extrem: General: no pedal edema Psych: Mental Status: mental status grossly normal Affect: normal affect Objective Data Vital Signs Vital Signs: Vital Signs - 24 hr 04/14/24 12:41 04/14/24 13:31 04/14/24 13:39 Temperature Pulse Rate 97 95 97 Respiratory Rate 20 31 H 28 H Blood Pressure 122/57 L 130/73 120/60 Pulse Oximetry 95 95 94 Oxygen Delivery Oxygen Flow Rate Fraction of Inspired Oxygen 04/14/24 13:45 04/14/24 14:00 04/14/24 14:15 Temperature Pulse Rate 98 88 86 Respiratory Rate 40 H 34 H 33 H Blood Pressure Pulse Oximetry 94 94 Oxygen Delivery Oxygen Flow Rate Fraction of Inspired Oxygen 04/14/24 14:16 04/14/24 15:04 04/14/24 15:04 Temperature Pulse Rate 88 92 Respiratory Rate 30 H 24 H Blood Pressure 125/47 L Pulse Oximetry 95 95 Oxygen Delivery Nasal Cannula Oxygen Flow Rate 2 Fraction of Inspired Oxygen 28 04/14/24 15:14 04/14/24 15:36 04/14/24 15:45 Temperature Pulse Rate 94 103 H 105 H Respiratory Rate 24 H 32 H 23 H Blood Pressure 136/47 L Pulse Oximetry 96 93 Oxygen Delivery Oxygen Flow Rate Fraction of Inspired Oxygen 04/14/24 16:00 04/14/24 20:45 04/14/24 21:21 Temperature 98 F Pulse Rate 97 85 85 Respiratory Rate 28 H 16 16 Blood Pressure 134/58 L Pulse Oximetry 96 95 95 Oxygen Delivery Nasal Cannula Oxygen Flow Rate 2 Fraction of Inspired Oxygen 28 04/14/24 21:40 04/14/24 21:49 04/15/24 02:22 Temperature Pulse Rate 96 94 87 Respiratory Rate 22 H 22 H 22 H Blood Pressure Pulse Oximetry Oxygen Delivery Oxygen Flow Rate Fraction of Inspired Oxygen 04/15/24 02:31 04/15/24 06:00 04/15/24 09:03 Temperature 97.6 F Pulse Rate 92 86 Respiratory Rate 20 20 Blood Pressure 128/53 L Pulse Oximetry 95 Oxygen Delivery Room Air Oxygen Flow Rate Fraction of Inspired Oxygen 04/15/24 09:58 04/15/24 09:58 04/15/24 10:06 Temperature Pulse Rate 89 90 Respiratory Rate 20 20 Blood Pressure Pulse Oximetry 95 Oxygen Delivery Nasal Cannula Oxygen Flow Rate 1 Fraction of Inspired Oxygen 24 Intake/Output Intake/Output: Intake & Output 04/12/24 04/13/24 04/14/24 04/15/24 23:59 23:59 23:59 23:59 Intake Total 540 590 Output Total 600 Balance 540 -10 Meds/Results Medications: Active Medications Generic Name Dose Route Start Last Admin Trade Name Freq PRN Reason Stop Dose Admin Acetaminophen 650 mg 04/14/24 12:47 Acetaminophen 325 Mg Tablet PO Q6H PRN Mild Pain (1-3) or Fever Albuterol/Ipratropium 3 ml 04/14/24 12:56 Ipratropium 0.5 Mg/Albuterol Sulfate 2.5 Mg Ampul.Neb 3 Ml INHALATION Q6HRT PRN Shortness Of Breath Or Wheezing Albuterol/Ipratropium 3 ml 04/14/24 14:00 04/15/24 09:58 Ipratropium 0.5 Mg/Albuterol Sulfate 2.5 Mg Ampul.Neb 3 Ml INHALATION 3 ml Q6HRT BASIL Administration Alprazolam 0.25 mg 04/14/24 22:29 Alprazolam (*Crx) 0.25 Mg Tablet PO DAILY PRN anxiety Aspirin 81 mg 04/15/24 09:00 04/15/24 09:03 Aspirin 81 Mg Enteric Tablet PO 81 mg QAM BASIL Administration Benzocaine 1 lozenge 04/14/24 12:47 Benzocaine/Menthol (*Bkc) 18 Ea Lozenge PO PRN PRN Sore Throat Benzonatate 100 mg 04/14/24 13:00 04/15/24 09:03 Benzonatate 100 Mg Capsule PO 100 mg TID BASIL Administration Bethanechol Chloride 25 mg 04/15/24 09:00 04/15/24 09:04 Bethanechol Chloride 25 Mg Tablet PO 25 mg BID BASIL Administration Buspirone HCl 7.5 mg 04/15/24 09:00 04/15/24 09:03 Buspirone Hcl 2.5 Mg Tablet PO 7.5 mg BID BASIL Administration Calcium Carbonate 500 mg 04/15/24 12:00 Calcium/Vitamin D 500 Mg/5 Mcg (200 I.U.) Tablet PO 1200,1700 [facility] Capsaicin 1 applic 04/14/24 23:17 Capsaicin 0.025% Cream 60 Gm Tube TOPICAL BID PRN Pain Cyclobenzaprine HCl 10 mg 04/14/24 22:29 Cyclobenzaprine Hcl 10 Mg Tablet PO TID PRN Muscle Spasm Dextrose 12.5 gm 04/14/24 12:47 Dextrose 50% 25 Gm/50 Ml Syringe IV PUSH PRN PRN Hypoglycemia Protocol Docusate Sodium 100 mg 04/14/24 22:29 Docusate Sodium 100 Mg Capsule PO DAILY PRN constipation Ferrous Sulfate 325 mg 04/15/24 12:00 Ferrous Sulfate [address] BY MOUTH DAILY@1200 [facility] Glucagon 1 mg 04/14/24 12:47 Glucagon For Inj 1 Mg Vial IM PRN PRN Hypoglycemia Protocol Glucose 15 gm 04/14/24 12:47 Glucose Oral Gel 15 Gm Of Glucse In 37.5 Gm Tube PO PRN PRN Hypoglycemia Protocol Guaifenesin 600 mg 04/14/24 13:00 04/15/24 09:03 Guaifenesin 12 Hr 600 Mg Tabcr PO 600 mg Q12HR [facility]IL Administration Dextrose 1,000 mls @ 100 mls/hr 04/14/24 12:47 Dextrose 5% 1,000 Ml IVPB PRN PRN Hypoglycemia Protocol Sodium Chloride 1,000 mls @ 125 mls/hr 04/14/24 13:05 04/14/24 22:59 Normal Saline Iv IV CONT 125 mls/hr .Q8H BASIL Administration Insulin Aspart 3 - 6 units 04/14/24 12:00 02/16/25 09:05 Insulin Aspart (*Bkc) 100 Units/Ml SUB-Q 3 units TIDWM [facility] Administration Protocol Insulin Aspart 3 units 04/15/24 06:30 04/15/24 09:05 Insulin Aspart (*Bkc) 100 Units/Ml SUB-Q 3 units DAILY@0630 [facility] Administration Insulin Aspart 4 units 04/15/24 11:30 Insulin Aspart (*Bkc) 100 Units/Ml SUB-Q 1130,1630 [facility] Insulin Glargine 16 units 04/15/24 09:00 04/15/24 09:04 Insulin Glargine (*Bkc) 100 Units/Ml SUB-Q 16 units DAILY [facility] Administration Levothyroxine Sodium 25 mcg 04/15/24 06:30 04/15/24 05:40 Levothyroxine Sodium 25 Mcg Tablet PO 25 mcg DAILY@0630 [facility] Administration Levothyroxine Sodium 112 mcg 04/15/24 06:30 04/15/24 05:40 Levothyroxine Sodium 112 Mcg Tablet PO 112 mcg DAILY@0630 [facility] Administration Lisinopril 10 mg 04/15/24 09:00 04/15/24 09:03 Lisinopril 10 Mg Tablet PO 10 mg DAILY [facility] Administration Loratadine 10 mg 04/15/24 09:00 04/15/24 09:04 Loratadine 10 Mg Tablet PO 10 mg DAILY [facility] Administration Magnesium Oxide 400 mg 04/15/24 09:00 04/15/24 09:03 Magnesium Oxide 400 Mg Tablet PO 400 mg DAILY [facility] Administration Metoclopramide HCl 5 mg 04/15/24 09:00 04/15/24 09:04 Metoclopramide Hcl 5 Mg Tablet PO 5 mg DAILY [facility] Administration Miconazole Nitrate 1 applic 04/15/24 09:00 04/15/24 09:08 Miconazole Nitrate 2% Cream 30 Gm Tube TOPICAL 1 applic BID [facility] Administration Miscellaneous Information 0 each 04/14/24 00:01 Miconazole (Sub For Ketoconazole) As Site Of Use XX 05/14/24 00:00 CLARIFY [facility] Miscellaneous Information 0 each 04/14/24 00:01 Capsaicin Add Site Of Use XX 05/14/24 00:00 CLARIFY [facility] Ondansetron HCl 4 mg 04/14/24 13:03 Ondansetron Inj 4 Mg/2 Ml Vial IV PUSH Q4H PRN Nausea Oseltamivir Phosphate 75 mg 04/14/24 09:40 04/15/24 09:03 Oseltamivir Phosphate 75 Mg Capsule PO 04/18/24 21:01 75 mg Q12HR [facility] Administration Pantoprazole Sodium 40 mg 04/15/24 09:00 04/15/24 09:03 Pantoprazole 40 Mg Tablet PO 40 mg Q12HR [facility] Administration Pravastatin Sodium 20 mg 04/15/24 09:00 04/15/24 09:03 Pravastatin Sodium 20 Mg Tablet PO 20 mg DAILY [facility] Administration Pregabalin 150 mg 04/14/24 22:30 04/15/24 05:40 Pregabalin (*Crx) 75 Mg Capsule PO 150 mg Q8HR [facility] Administration Sertraline HCl 100 mg 04/15/24 09:00 04/15/24 09:02 Sertraline Hcl 50 Mg Tablet PO 100 mg DAILY [facility] Administration Vitamin D 1,000 units 04/15/24 09:00 04/15/24 09:04 Cholecalciferol 1,000 Units Tablet PO 1,000 units DAILY [facility] Administration Radiology Results: ITS Impressions Chest X-Ray 04/14/24 08:57 IMPRESSION: 1. Mild bibasilar atelectasis. 2. Moderate-sized hiatal hernia. Head CT 04/14/24 12:18 IMPRESSION: 1. No fracture or acute intracranial process. 2. 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 Labs Labs: Laboratory Results - last 24 hr 04/14/24 04/14/24 04/14/24 08:46 15:24 17:29 WBC RBC Hgb Hct MCV MCH MCHC RDW Plt Count MPV Immature Gran % (Auto) Neut % (Auto) Lymph % (Auto) Caroline % (Auto) Eos % (Auto) Baso % (Auto) Lymph # (Auto) Caroline # (Auto) Eos # (Auto) Baso # (Auto) Abs Immat Gran (auto) Absolute Neuts (auto) Absolute Nucleated RBC Nucleated RBC % Sodium Potassium Chloride Carbon Dioxide Anion Gap BUN Creatinine Estim Creat Clear Calc Estimated GFR Glucose POC Capillary Glucose 251 H Hemoglobin A1c Calcium Phosphorus Magnesium Total Bilirubin AST ALT Alkaline Phosphatase Troponin I < 0.012 < 0.012 C-Reactive Protein Total Protein Albumin Urine Color Urine Appearance Urine pH Ur Specific [place] Urine Protein Urine Glucose (UA) Urine Ketones Ur Blood (Man) Urine Nitrate Urine Bilirubin Urine Urobilinogen Leukocyte Esterase Rfl Urine RBC Urine WBC Ur Squamous Epith Cells Urine Bacteria Urine Casts 04/14/24 04/14/24 04/14/24 17:42 20:27 21:31 WBC RBC Hgb Hct MCV MCH MCHC RDW Plt Count MPV Immature Gran % (Auto) Neut % (Auto) Lymph % (Auto) Caroline % (Auto) Eos % (Auto) Baso % (Auto) Lymph # (Auto) Caroline # (Auto) Eos # (Auto) Baso # (Auto) Abs Immat Gran (auto) Absolute Neuts (auto) Absolute Nucleated RBC Nucleated RBC % Sodium Potassium Chloride Carbon Dioxide Anion Gap BUN Creatinine Estim Creat Clear Calc Estimated GFR Glucose POC Capillary Glucose 174 H 209 H Hemoglobin A1c Calcium Phosphorus Magnesium Total Bilirubin AST ALT Alkaline Phosphatase Troponin I < 0.012 C-Reactive Protein Total Protein Albumin Urine Color Urine Appearance Urine pH Ur Specific [place] Urine Protein Urine Glucose (UA) Urine Ketones Ur Blood (Man) Urine Nitrate Urine Bilirubin Urine Urobilinogen Leukocyte Esterase Rfl Urine RBC Urine WBC Ur Squamous Epith Cells Urine Bacteria Urine Casts 04/15/24 04/15/24 04/15/24 05:20 06:13 08:13 WBC 8.3 RBC 3.89 L Hgb 11.2 L Hct 35.2 L MCV 90.5 MCH 28.8 MCHC 31.8 L RDW 13.8 Plt Count 130 L MPV 12.1 H Immature Gran % (Auto) 0.4 Neut % (Auto) 85.7 H Lymph % (Auto) 7.3 L Caroline % (Auto) 6.4 Eos % (Auto) 0.0 Baso % (Auto) 0.2 Lymph # (Auto) 0.60 L Caroline # (Auto) 0.5 Eos # (Auto) 0.0 Baso # (Auto) 0.0 Abs Immat Gran (auto) 0.03 Absolute Neuts (auto) 7.1 H Absolute Nucleated RBC 0.000 Nucleated RBC % 0.0 Sodium 132 L Potassium 3.5 Chloride 100 Carbon Dioxide 27 Anion Gap 5 BUN 16 Creatinine 0.60 L Estim Creat Clear Calc 70 Estimated GFR > 60 Glucose 251 H POC Capillary Glucose 249 H Hemoglobin A1c 8.6 H Calcium 8.4 Phosphorus 2.8 Magnesium 1.6 Total Bilirubin 0.9 AST 35 ALT 30 Alkaline Phosphatase 74 Troponin I C-Reactive Protein 12.5 H Total Protein 6.0 L Albumin 3.4 L Urine Color Yellow Urine Appearance Clear Urine pH 6.5 Ur Specific [place] 1.022 Urine Protein Trace Urine Glucose (UA) 3+ H Urine Ketones 1+ H Ur Blood (Man) Negative Urine Nitrate Negative Urine Bilirubin Negative Urine Urobilinogen 0.2 Leukocyte Esterase Rfl Trace H Urine RBC 0-2 Urine WBC 6-10 H Ur Squamous Epith Cells None seen Urine Bacteria None seen Urine Casts 0-2 04/15/24 12:08 WBC RBC Hgb Hct MCV MCH MCHC RDW Plt Count MPV Immature Gran % (Auto) Neut % (Auto) Lymph % (Auto) Caroline % (Auto) Eos % (Auto) Baso % (Auto) Lymph # (Auto) Caroline # (Auto) Eos # (Auto) Baso # (Auto) Abs Immat Gran (auto) Absolute Neuts (auto) Absolute Nucleated RBC Nucleated RBC % Sodium Potassium Chloride Carbon Dioxide Anion Gap BUN Creatinine Estim Creat Clear Calc Estimated GFR Glucose POC Capillary Glucose 263 H Hemoglobin A1c Calcium Phosphorus Magnesium Total Bilirubin AST ALT Alkaline Phosphatase Troponin I C-Reactive Protein Total Protein Albumin Urine Color Urine Appearance Urine pH Ur Specific [place] Urine Protein Urine Glucose (UA) Urine Ketones Ur Blood (Man) Urine Nitrate Urine Bilirubin Urine Urobilinogen Leukocyte Esterase Rfl Urine RBC Urine WBC Ur Squamous Epith Cells Urine Bacteria Urine Casts Quality VTE Prophylaxis VTE prophylaxis: mechanical ordered
[2024-04-15] MEDS: CALCIUM/VITAMIN D 500 MG/5 MCG (200 I.U.) TABLET PO ×2 (12:26→17:35)
[2024-04-15] MEDS: FERROUS SULFATE 325 MG TABLET DR BY MOUTH (12:26)
[2024-04-15 17:21] LABS: Glucose Point of Care 126 mg/dl (65-105)
[2024-04-15 21:07] LABS: Glucose Point of Care 61 mg/dl (65-105)
[2024-04-15 22:07] LABS: Glucose Point of Care 151 mg/dl (65-105)
[2024-04-16] VITALS (10 sets, daily range): BP systolic 138–145; BP diastolic 53–62; PULSE 70–93; RESP 16–20; TEMP 36.7–36.8; O2SAT 91–99
[2024-04-16] MEDS: SODIUM CHLORIDE 0.9% IV 1,000 ML 125 ML IV CONT ×2 (00:33→08:56)
[2024-04-16] MEDS: IPRATROPIUM 0.5 MG/ALBUTEROL SULFATE 2.5 MG AMPUL.NEB 3 ML INHALATION ×4 (02:14→19:55)
[2024-04-16] MEDS: PREGABALIN (*CRX) 75 MG CAPSULE 150 MG PO ×3 (05:50→20:15)
[2024-04-16] MEDS: LEVOTHYROXINE SODIUM 25 MCG TABLET PO (05:51)
[2024-04-16] MEDS: LEVOTHYROXINE SODIUM 112 MCG TABLET PO (05:51)
[2024-04-16 07:30] LABS: Basophils Percent Auto 0.3 % (0.2-1.2); Eosinophils Percent Auto 1.2 % (0-4.4); Hematocrit 33.6 % (37.0-47.0); Hemoglobin 10.6 g/dL (12.0-15.0); Immature Granulocyte Absolute 0.01 K/mm3 (0.00-0.031); Immature Granulocyte Percent A 0.3 % (0-0.5); Immature Platelet Fraction Pct 6.4 % (0.9-11.2); Lymphocytes Absolute Auto 0.42 K/mm3 (0.9-3.2); Lymphocytes Percent Auto 12.9 % (18.3-44.2); Mean Corpuscular HGB Conc 31.5 g/dl (32-36); Mean Corpuscular Hemoglobin 28.7 pg (26-34); Mean Corpuscular Volume 91.1 fl (80-100); Monocytes Absolute Auto 0.2 K/mm3 (0.1-0.6); Monocytes Percent Auto 6.4 % (2.6-8.5); Neutrophils Absolute Auto 2.6 K/mm3 (1.3-6.7); Neutrophils Percent Auto 78.9 % (45.5-73.1); Platelet Count Result 124 k/mm3 (150-375); Red Blood Count 3.69 M/mm3 (4.2-5.4); Red Cell Distribution Width 13.8 % (11.5-14.5); White Blood Count 3.3 K/mm3 (4.5-10.0)
[2024-04-16 07:49] LABS: Alanine Aminotransferase 26 U/L (6-35); Albumin Level 3.1 g/dL (3.5-5.1); Alkaline Phosphatase 67 U/L (38-126); Anion Gap 6 mmol/L (4-12); Aspartate Amino Transferase 33 U/L (14-36); Bilirubin,Total 0.7 mg/dL (0.2-1.3); Blood Urea Nitrogen 8 mg/dL (7-17); Calcium 8.2 mg/dL (8.4-10.2); Carbon Dioxide 27 mmol/L (22-30); Chloride 104 mmol/L (98-107); Estimated CRCL calculation 83 ml/min; Estimated Glomerular Filt Rate > 60; Glucose 191 mg/dL (65-110); Magnesium 1.6 mg/dL (1.6-2.3); Potassium 3.6 mmol/L (3.4-5.0); Sodium 137 mmol/L (137-145)
[2024-04-16 08:25] LABS: Glucose Point of Care 206 mg/dl (65-105)
[2024-04-16] MEDS: INSULIN ASPART (*BKC) 100 UNITS/ML SUB-Q ×3 (08:56→12:39)
[2024-04-16] MEDS: INSULIN GLARGINE (*BKC) 100 UNITS/ML 16 UNITS SUB-Q (08:58)
[2024-04-16] MEDS: busPIRone HCL 2.5 MG TABLET 7.5 MG PO ×2 (09:00→18:01)
[2024-04-16] MEDS: SERTRALINE HCL 50 MG TABLET 100 MG PO (09:00)
[2024-04-16] MEDS: OSELTAMIVIR PHOSPHATE 75 MG CAPSULE PO ×2 (09:00→20:15)
[2024-04-16] MEDS: guaiFENesin 12 HR 600 MG TABCR PO ×2 (09:00→20:15)
[2024-04-16] MEDS: CHOLECALCIFEROL 1,000 UNITS TABLET 1000 UNITS PO (09:00)
[2024-04-16] MEDS: BETHANECHOL CHLORIDE 25 MG TABLET PO ×2 (09:00→18:01)
[2024-04-16] MEDS: PANTOPRAZOLE 40 MG TABLET PO ×2 (09:00→20:15)
[2024-04-16] MEDS: ASPIRIN 81 MG ENTERIC TABLET PO (09:00)
[2024-04-16] MEDS: BENZONATATE 100 MG CAPSULE PO ×3 (09:00→18:01)
[2024-04-16] MEDS: METOCLOPRAMIDE HCL 5 MG TABLET PO (09:00)
[2024-04-16] MEDS: MAGNESIUM OXIDE 400 MG TABLET PO (09:01)
[2024-04-16] MEDS: PRAVASTATIN SODIUM 20 MG TABLET PO (09:01)
[2024-04-16] MEDS: LORATADINE 10 MG TABLET PO (09:01)
[2024-04-16] MEDS: lisinopriL 10 MG TABLET PO (09:01)
--- NOTE | 2024-04-16 11:49 | P.PNIM_ITS ---
Progress Note: A&P Assessment and Plan (1) Syncope: Qualifiers: Syncope type: unspecified Qualified Code(s): R55 - Syncope and collapse Code(s): R55 - Syncope and collapse Status: Acute Assessment and Plan: - EKG, initial: Sinus rhythm, right bundle branch block, baseline artifact. When compared to EKG done in August of 2023, no significant changes. - CXR: 1. Mild bibasilar atelectasis. 2. Moderate-sized hiatal hernia. - head CT: 1. No fracture or acute intracranial process. 2. 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 - WBC 7.4, hemoglobin 13.8, initial glucose 249 - obtain orthostatics: sitting HR 87 BP 132/57, standing HR 96 BP 125/55, and supine HR 85 BP 141/52. - fall precautions - telemetry monitoring Suspect syncope is secondary to the patient's new hypoxia due to her current viral infections. No pneumonia on chest x-ray. (2) Influenza A: Code(s): J10.1 - Influenza due to other identified influenza virus with other respiratory manifestations Status: Acute Assessment and Plan: - tested positive for influenza A on 04/14 - Tamiflu 75 mg BID - supportive care: Tylenol p.r.n. Mucinex basil DuoNeb p.r.n. Tessalon Perles p.r.n. Lozenge p.r.n. IV fluids: NS @ 75 ml/hr. - monitor WBC/CBC - Sa02 97% RA. -WBC today 3.3. (3) Respiratory syncytial virus (RSV): Qualifiers: RSV infection type: unspecified Qualified Code(s): B33.8 - Other specified viral diseases Code(s): B33.8 - Other specified viral diseases Status: Acute Assessment and Plan: - tested positive for RSV on 04/14 - supportive care, see above (4) Type 1 diabetes mellitus: Qualifiers: Diabetes mellitus complication status: with hypoglycemia Diabetes mellitus complication detail: without coma Qualified Code(s): E10.649 - Type 1 diabetes mellitus with hypoglycemia without coma Code(s): E10.9 - Type 1 diabetes mellitus without complications Status: Chronic Assessment and Plan: - hypoglycemia protocol - POC blood glucose ACHS - correct regimen ordered - moderate dose TIDWM, based off BMI - A1C 7.8% on 08/23/2023, update (5) Hypertension: Qualifiers: Hypertension type: unspecified Qualified Code(s): I10 - Essential (primary) hypertension Code(s): I10 - Essential (primary) hypertension Status: Chronic Assessment and Plan: - chronic, currently 145/62. - continue home medications - monitor Plan Diet: Diabetic GI Prophylaxis: Not currently indicated DVT Prophylaxis: SCDs Lines: Peripheral Code Status: Full code Subjective Date/time seen: 04/16/24 11:49 Interval history: Patient sitting up in chair. Patient reports feeling better today. Patient denies chest pain, palpitations, headache, dizziness, nausea, or vomiting. Review of Systems Review of Systems: All systems reviewed & are unremarkable except as noted in HPI and below Exam Const: General: comfortable and no acute distress Resp: Effort & Inspection: normal respiratory effort Auscultation: clear to auscultation bilaterally Other: slightly diminished. Cardio: Rate: regular rate Rhythm: regular rhythm GI: GI Palp: Yes Soft to palpation Auscultation: normal bowel sounds Neuro: Speech: normal speech Extrem: General: no pedal edema Psych: Mental Status: mental status grossly normal Affect: normal affect Objective Data Vital Signs Vital Signs: Vital Signs - 24 hr 04/15/24 12:32 04/15/24 12:32 04/15/24 12:33 Temperature Pulse Rate 85 87 96 Respiratory Rate Blood Pressure 141/52 H 132/57 L 125/55 L Pulse Oximetry 94 94 97 Oxygen Delivery Fraction of Inspired Oxygen 04/15/24 14:00 04/15/24 14:01 04/15/24 14:01 Temperature 97.0 F L Pulse Rate 85 77 Respiratory Rate 20 20 Blood Pressure 141/52 H Pulse Oximetry 94 97 Oxygen Delivery Room Air Fraction of Inspired Oxygen 04/15/24 14:10 04/15/24 20:40 04/15/24 21:20 Temperature 98.9 F Pulse Rate 79 79 79 Respiratory Rate 20 18 18 Blood Pressure 137/61 Pulse Oximetry 94 94 Oxygen Delivery Room Air Fraction of Inspired Oxygen 04/15/24 21:29 04/16/24 02:14 04/16/24 04:57 Temperature 98.2 F Pulse Rate 80 86 86 Respiratory Rate 18 18 16 Blood Pressure 145/62 H Pulse Oximetry 93 Oxygen Delivery Fraction of Inspired Oxygen 04/16/24 08:30 04/16/24 08:30 04/16/24 08:43 Temperature Pulse Rate 70 77 Respiratory Rate 20 20 Blood Pressure Pulse Oximetry 99 Oxygen Delivery Room Air Fraction of Inspired Oxygen 04/16/24 09:46 Temperature Pulse Rate Respiratory Rate Blood Pressure Pulse Oximetry Oxygen Delivery Room Air Fraction of Inspired Oxygen Intake/Output Intake/Output: Intake & Output 04/13/24 04/14/24 04/15/24 04/16/24 23:59 23:59 23:59 23:59 Intake Total 540 4070 2830 Output Total 2700 1400 Balance 540 1370 1430 Meds/Results Medications: Active Medications Generic Name Dose Route Start Last Admin Trade Name Freq PRN Reason Stop Dose Admin Acetaminophen 650 mg 04/14/24 12:47 Acetaminophen 325 Mg Tablet PO Q6H PRN Mild Pain (1-3) or Fever Albuterol/Ipratropium 3 ml 04/14/24 12:56 Ipratropium 0.5 Mg/Albuterol Sulfate 2.5 Mg Ampul.Neb 3 Ml INHALATION Q6HRT PRN Shortness Of Breath Or Wheezing Albuterol/Ipratropium 3 ml 04/14/24 14:00 04/16/24 08:28 Ipratropium 0.5 Mg/Albuterol Sulfate 2.5 Mg Ampul.Neb 3 Ml INHALATION 3 ml Q6HRT BASIL Administration Alprazolam 0.25 mg 04/14/24 22:29 Alprazolam (*Crx) 0.25 Mg Tablet PO DAILY PRN anxiety Aspirin 81 mg 04/15/24 09:00 04/16/24 09:00 Aspirin 81 Mg Enteric Tablet PO 81 mg QAM [facility] Administration Benzocaine 1 lozenge 04/14/24 12:47 Benzocaine/Menthol (*Bkc) 18 Ea Lozenge PO PRN PRN Sore Throat Benzonatate 100 mg 04/14/24 13:00 04/16/24 09:00 Benzonatate 100 Mg Capsule PO 100 mg TID BASIL Administration Bethanechol Chloride 25 mg 04/15/24 09:00 04/16/24 09:00 Bethanechol Chloride 25 Mg Tablet PO 25 mg BID BASIL Administration Buspirone HCl 7.5 mg 04/15/24 09:00 04/16/24 09:00 Buspirone Hcl 2.5 Mg Tablet PO 7.5 mg BID BASIL Administration Calcium Carbonate 500 mg 04/15/24 12:00 04/15/24 17:35 Calcium/Vitamin D 500 Mg/5 Mcg (200 I.U.) Tablet PO 500 mg 1200,1700 [facility] Administration Capsaicin 1 applic 04/14/24 23:17 Capsaicin 0.025% Cream 60 Gm Tube TOPICAL BID PRN Pain Cyclobenzaprine HCl 10 mg 04/14/24 22:29 Cyclobenzaprine Hcl 10 Mg Tablet PO TID PRN Muscle Spasm Dextrose 12.5 gm 04/14/24 12:47 Dextrose 50% 25 Gm/50 Ml Syringe IV PUSH PRN PRN Hypoglycemia Protocol Docusate Sodium 100 mg 04/14/24 22:29 Docusate Sodium 100 Mg Capsule PO DAILY PRN constipation Ferrous Sulfate 325 mg 04/15/24 12:00 04/15/24 12:26 Ferrous Sulfate [address] BY MOUTH 325 mg DAILY@1200 [facility] Administration Glucagon 1 mg 04/14/24 12:47 Glucagon For Inj 1 Mg Vial IM PRN PRN Hypoglycemia Protocol Glucose 15 gm 04/14/24 12:47 Glucose Oral Gel 15 Gm Of Glucse In 37.5 Gm Tube PO PRN PRN Hypoglycemia Protocol Guaifenesin 600 mg 04/14/24 13:00 04/16/24 09:00 Guaifenesin 12 Hr 600 Mg Tabcr PO 600 mg Q12HR BASIL Administration Dextrose 1,000 mls @ 100 mls/hr 04/14/24 12:47 Dextrose 5% 1,000 Ml IVPB PRN PRN Hypoglycemia Protocol Sodium Chloride 1,000 mls @ 125 mls/hr 04/14/24 13:05 04/16/24 08:56 Normal Saline Iv IV CONT 125 mls/hr .Q8H BASIL Administration Insulin Aspart 3 - 6 units 04/14/24 12:00 04/16/24 08:56 Insulin Aspart (*Bkc) 100 Units/Ml SUB-Q 3 units TIDWM BASIL Administration Protocol Insulin Aspart 3 units 04/15/24 06:30 04/16/24 08:57 Insulin Aspart (*Bkc) 100 Units/Ml SUB-Q 3 units DAILY@0630 [facility] Administration Insulin Aspart 4 units 04/15/24 11:30 04/15/24 17:35 Insulin Aspart (*Bkc) 100 Units/Ml SUB-Q 4 units 1130,1630 [facility] Administration Insulin Glargine 16 units 04/15/24 09:00 04/16/24 08:58 Insulin Glargine (*Bkc) 100 Units/Ml SUB-Q 16 units DAILY [facility] Administration Levothyroxine Sodium 25 mcg 04/15/24 06:30 04/16/24 05:51 Levothyroxine Sodium 25 Mcg Tablet PO 25 mcg DAILY@0630 [facility] Administration Levothyroxine Sodium 112 mcg 04/15/24 06:30 04/16/24 05:51 Levothyroxine Sodium 112 Mcg Tablet PO 112 mcg DAILY@0630 [facility] Administration Lisinopril 10 mg 04/15/24 09:00 04/16/24 09:01 Lisinopril 10 Mg Tablet PO 10 mg DAILY BASIL Administration Loratadine 10 mg 04/15/24 09:00 04/16/24 09:01 Loratadine 10 Mg Tablet PO 10 mg DAILY BASIL Administration Magnesium Oxide 400 mg 04/15/24 09:00 04/16/24 09:01 Magnesium Oxide 400 Mg Tablet PO 400 mg DAILY BASIL Administration Metoclopramide HCl 5 mg 04/15/24 09:00 04/16/24 09:00 Metoclopramide Hcl 5 Mg Tablet PO 5 mg DAILY BASIL Administration Miconazole Nitrate 1 applic 04/15/24 09:00 04/16/24 09:02 Miconazole Nitrate 2% Cream 30 Gm Tube TOPICAL Not Given BID [facility] Miscellaneous Information 0 each 04/14/24 00:01 Miconazole (Sub For Ketoconazole) As Site Of Use XX 05/14/24 00:00 CLARIFY [facility] Miscellaneous Information 0 each 04/14/24 00:01 Capsaicin Add Site Of Use XX 05/14/24 00:00 CLARIFY [facility] Ondansetron HCl 4 mg 04/14/24 13:03 Ondansetron Inj 4 Mg/2 Ml Vial IV PUSH Q4H PRN Nausea Oseltamivir Phosphate 75 mg 04/14/24 09:40 04/16/24 09:00 Oseltamivir Phosphate 75 Mg Capsule PO 04/18/24 21:01 75 mg Q12HR BASIL Administration Pantoprazole Sodium 40 mg 04/15/24 09:00 04/16/24 09:00 Pantoprazole 40 Mg Tablet PO 40 mg Q12HR BASIL Administration Pravastatin Sodium 20 mg 04/15/24 09:00 04/16/24 09:01 Pravastatin Sodium 20 Mg Tablet PO 20 mg DAILY [facility]IL Administration Pregabalin 150 mg 04/14/24 22:30 04/16/24 05:50 Pregabalin (*Crx) 75 Mg Capsule PO 150 mg Q8HR BASIL Administration Sertraline HCl 100 mg 04/15/24 09:00 04/16/24 09:00 Sertraline Hcl 50 Mg Tablet PO 100 mg DAILY BASIL Administration Vitamin D 1,000 units 04/15/24 09:00 04/16/24 09:00 Cholecalciferol 1,000 Units Tablet PO 1,000 units DAILY BASIL Administration Radiology Results: ITS Impressions Chest X-Ray 04/14/24 08:57 IMPRESSION: 1. Mild bibasilar atelectasis. 2. Moderate-sized hiatal hernia. Head CT 04/14/24 12:18 IMPRESSION: 1. No fracture or acute intracranial process. 2. 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 Labs Labs: Laboratory Results - last 24 hr 04/15/24 04/15/24 04/15/24 12:08 17:15 20:59 WBC RBC Hgb Hct MCV MCH MCHC RDW Plt Count MPV Immature Gran % (Auto) Neut % (Auto) Lymph % (Auto) [place] % (Auto) Eos % (Auto) Baso % (Auto) Lymph # (Auto) [place] # (Auto) Eos # (Auto) Baso # (Auto) Abs Immat Gran (auto) Absolute Neuts (auto) Absolute Nucleated RBC Nucleated RBC % % Immature Plt Fraction Sodium Potassium Chloride Carbon Dioxide Anion Gap BUN Creatinine Estim Creat Clear Calc Estimated GFR Glucose POC Capillary Glucose 263 H 126 H 61 L Calcium Magnesium Total Bilirubin AST ALT Alkaline Phosphatase Total Protein Albumin 04/15/24 04/16/24 04/16/24 22:05 06:39 08:12 WBC 3.3 L RBC 3.69 L Hgb 10.6 L Hct 33.6 L MCV 91.1 MCH 28.7 MCHC 31.5 L RDW 13.8 Plt Count 124 L MPV 12.0 H Immature Gran % (Auto) 0.3 Neut % (Auto) 78.9 H Lymph % (Auto) 12.9 L [place] % (Auto) 6.4 Eos % (Auto) 1.2 Baso % (Auto) 0.3 Lymph # (Auto) 0.42 L [place] # (Auto) 0.2 Eos # (Auto) 0.0 Baso # (Auto) 0.0 Abs Immat Gran (auto) 0.01 Absolute Neuts (auto) 2.6 Absolute Nucleated RBC 0.000 Nucleated RBC % 0.0 % Immature Plt Fraction 6.4 Sodium 137 Potassium 3.6 Chloride 104 Carbon Dioxide 27 Anion Gap 6 BUN 8 D Creatinine 0.50 L Estim Creat Clear Calc 83 Estimated GFR > 60 Glucose 191 H POC Capillary Glucose 151 H 206 H Calcium 8.2 L Magnesium 1.6 Total Bilirubin 0.7 AST 33 ALT 26 Alkaline Phosphatase 67 Total Protein 6.0 L Albumin 3.1 L Quality VTE Prophylaxis VTE prophylaxis: mechanical ordered
[2024-04-16 12:20] LABS: Glucose Point of Care 119 mg/dl (65-105)
[2024-04-16] MEDS: FERROUS SULFATE 325 MG TABLET DR BY MOUTH (12:39)
[2024-04-16] MEDS: CALCIUM/VITAMIN D 500 MG/5 MCG (200 I.U.) TABLET PO ×2 (12:39→18:01)
[2024-04-16 17:37] LABS: Glucose Point of Care 77 mg/dl (65-105)
[2024-04-16] MEDS: SODIUM CHLORIDE 0.9% IV 1,000 ML 75 ML IV CONT (18:01)
[2024-04-16 20:56] LABS: Glucose Point of Care 104 mg/dl (65-105)
[2024-04-17] VITALS (7 sets, daily range): BP systolic 140–154; BP diastolic 70–75; PULSE 80–95; RESP 12–20; TEMP 37.3; O2SAT 90–97
[2024-04-17] MEDS: IPRATROPIUM 0.5 MG/ALBUTEROL SULFATE 2.5 MG AMPUL.NEB 3 ML INHALATION ×2 (01:53→08:52)
[2024-04-17] MEDS: PREGABALIN (*CRX) 75 MG CAPSULE 150 MG PO ×3 (05:55→21:03)
[2024-04-17] MEDS: LEVOTHYROXINE SODIUM 25 MCG TABLET PO (05:56)
[2024-04-17] MEDS: LEVOTHYROXINE SODIUM 112 MCG TABLET PO (05:56)
[2024-04-17 06:09] LABS: Basophils Percent Auto 0.2 % (0.2-1.2); Eosinophils Absolute Auto 0.1 K/mm3 (0-0.3); Hemoglobin 10.5 g/dL (12.0-15.0); Immature Granulocyte Absolute 0.01 K/mm3 (0.00-0.031); Immature Granulocyte Percent A 0.2 % (0-0.5); Immature Platelet Fraction Pct 6.4 % (0.9-11.2); Lymphocytes Absolute Auto 0.33 K/mm3 (0.9-3.2); Lymphocytes Percent Auto 8.1 % (18.3-44.2); Mean Corpuscular HGB Conc 31.8 g/dl (32-36); Mean Corpuscular Hemoglobin 29.2 pg (26-34); Mean Corpuscular Volume 91.9 fl (80-100); Mean Platelet Volume 11.5 fl (7.4-10.4); Monocytes Absolute Auto 0.3 K/mm3 (0.1-0.6); Monocytes Percent Auto 8.4 % (2.6-8.5); Neutrophils Absolute Auto 3.3 K/mm3 (1.3-6.7); Neutrophils Percent Auto 81.1 % (45.5-73.1); Platelet Count Result 109 k/mm3 (150-375); Red Blood Count 3.59 M/mm3 (4.2-5.4); Red Cell Distribution Width 13.6 % (11.5-14.5); White Blood Count 4.1 K/mm3 (4.5-10.0)
[2024-04-17 06:15] LABS: Alanine Aminotransferase 26 U/L (6-35); Albumin Level 3.2 g/dL (3.5-5.1); Alkaline Phosphatase 69 U/L (38-126); Anion Gap 6 mmol/L (4-12); Aspartate Amino Transferase 35 U/L (14-36); Bilirubin,Total 0.7 mg/dL (0.2-1.3); Blood Urea Nitrogen 8 mg/dL (7-17); Calcium 8.3 mg/dL (8.4-10.2); Carbon Dioxide 27 mmol/L (22-30); Chloride 102 mmol/L (98-107); Estimated CRCL calculation 83 ml/min; Estimated Glomerular Filt Rate > 60; Glucose 207 mg/dL (65-110); Magnesium 1.4 mg/dL (1.6-2.3); Potassium 3.2 mmol/L (3.4-5.0); Sodium 135 mmol/L (137-145)
[2024-04-17 08:41] LABS: Glucose Point of Care 203 mg/dl (65-105)
[2024-04-17] MEDS: cefTRIAXone 2 GM/NS 100 ML 2 GM/100 ML BAG IVPB (09:00)
[2024-04-17] MEDS: busPIRone HCL 2.5 MG TABLET 7.5 MG PO ×2 (09:04→18:40)
[2024-04-17] MEDS: OSELTAMIVIR PHOSPHATE 75 MG CAPSULE PO ×2 (09:04→21:03)
[2024-04-17] MEDS: PRAVASTATIN SODIUM 20 MG TABLET PO (09:05)
[2024-04-17] MEDS: LORATADINE 10 MG TABLET PO (09:05)
[2024-04-17] MEDS: guaiFENesin 12 HR 600 MG TABCR PO ×2 (09:05→21:03)
[2024-04-17] MEDS: MAGNESIUM OXIDE 400 MG TABLET PO (09:05)
[2024-04-17] MEDS: ASPIRIN 81 MG ENTERIC TABLET PO (09:05)
[2024-04-17] MEDS: SERTRALINE HCL 50 MG TABLET 100 MG PO (09:05)
[2024-04-17] MEDS: lisinopriL 10 MG TABLET PO (09:05)
[2024-04-17] MEDS: BENZONATATE 100 MG CAPSULE PO ×3 (09:05→18:40)
[2024-04-17] MEDS: CHOLECALCIFEROL 1,000 UNITS TABLET 1000 UNITS PO (09:05)
[2024-04-17] MEDS: METOCLOPRAMIDE HCL 5 MG TABLET PO (09:05)
[2024-04-17] MEDS: BETHANECHOL CHLORIDE 25 MG TABLET PO ×2 (09:05→18:40)
[2024-04-17] MEDS: PANTOPRAZOLE 40 MG TABLET PO ×2 (09:05→21:03)
[2024-04-17] MEDS: POTASSIUM CHLORIDE 20 MEQ ER TABLET 40 MEQ PO (09:06)
[2024-04-17] MEDS: INSULIN GLARGINE (*BKC) 100 UNITS/ML 16 UNITS SUB-Q (09:06)
[2024-04-17] MEDS: INSULIN ASPART (*BKC) 100 UNITS/ML SUB-Q ×3 (09:07→13:13)
[2024-04-17 11:57] LABS: Glucose Point of Care 143 mg/dl (65-105)
--- NOTE | 2024-04-17 12:31 | P.PNIM_ITS ---
Progress Note: A&P Assessment and Plan (1) Syncope: Qualifiers: Syncope type: unspecified Qualified Code(s): R55 - Syncope and collapse Code(s): R55 - Syncope and collapse Status: Acute Assessment and Plan: - EKG, initial: Sinus rhythm, right bundle branch block, baseline artifact. When compared to EKG done in August of 2023, no significant changes. - CXR: 1. Mild bibasilar atelectasis. 2. Moderate-sized hiatal hernia. - head CT: 1. No fracture or acute intracranial process. 2. 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 - WBC 4.1, hemoglobin 10.5. - obtain orthostatics: sitting HR 87 BP 132/57, standing HR 96 BP 125/55, and supine HR 85 BP 141/52. - fall precautions - telemetry monitoring Suspect syncope is secondary to the patient's new hypoxia due to her current viral infections. No pneumonia on chest x-ray. (2) Influenza A: Code(s): J10.1 - Influenza due to other identified influenza virus with other respiratory manifestations Status: Acute Assessment and Plan: - tested positive for influenza A on 04/14 - Tamiflu 75 mg BID - supportive care: Tylenol p.r.n. Mucinex basil DuoNeb p.r.n. Tessalon Perles p.r.n. Lozenge p.r.n. IV fluids: NS @ 75 ml/hr. - monitor WBC/CBC - Sa02 97% RA. -WBC today 4.1. (3) Respiratory syncytial virus (RSV): Qualifiers: RSV infection type: unspecified Qualified Code(s): B33.8 - Other sp ecified viral diseases Code(s): B33.8 - Other specified viral diseases Status: Acute Assessment and Plan: - tested positive for RSV on 04/14 - supportive care, see above (4) Type 1 diabetes mellitus: Qualifiers: Diabetes mellitus complication detail: without coma Diabetes mellitus complication status: with hypoglycemia Qualified Code(s): E10.649 - Type 1 diabetes mellitus with hypoglycemia without coma Code(s): E10.9 - Type 1 diabetes mellitus without complications Status: Chronic Assessment and Plan: - hypoglycemia protocol - POC blood glucose ACHS - correct regimen ordered - moderate dose TIDWM, based off BMI - A1C 7.8% on 08/23/2023, update (5) Hypertension: Qualifiers: Hypertension type: unspecified Qualified Code(s): I10 - Essential (primary) hypertension Code(s): I10 - Essential (primary) hypertension Status: Chronic Assessment and Plan: - chronic, currently 140/75 - continue home medications - monitor (6) UTI (urinary tract infection): Code(s): N39.0 - Urinary tract infection, site not specified Status: Acute Assessment and Plan: * Urine positive for E coli * Ceftriaxone 2 gram IVPB daily. Plan Diet: Diabetic GI Prophylaxis: Not currently indicated DVT Prophylaxis: SCDs Lines: Peripheral Code Status: Full code Subjective Date/time seen: 04/17/24 12:31 Interval history: Patient reports not feeling as well today and coughing up white sputum. Patient denies chest pain, palpitations, headache, dizziness, nausea, vomiting, or burning with urination. Review of Systems Review of Systems: All systems reviewed & are unremarkable except as noted in HPI and below Exam Const: General: comfortable and no acute distress Resp: Effort & Inspection: normal respiratory effort Auscultation: diminished lung sounds Cardio: Rate: regular rate Rhythm: regular rhythm GI: GI Palp: Yes Soft to palpation Auscultation: normal bowel sounds Neuro: Speech: normal speech Extrem: General: no pedal edema Psych: Mental Status: mental status grossly normal Affect: normal affect Objective Data Vital Signs Vital Signs: Vital Signs - 24 hr 04/16/24 14:00 04/16/24 15:03 04/16/24 15:14 Temperature 98.0 F Pulse Rate 81 82 Respiratory Rate 18 20 Blood Pressure 138/60 Pulse Oximetry 94 Oxygen Delivery Room Air Fraction of Inspired Oxygen 04/16/24 15:22 04/16/24 19:55 04/16/24 19:55 Temperature Pulse Rate 81 83 Respiratory Rate 20 20 Blood Pressure Pulse Oximetry 94 Oxygen Delivery Room Air Fraction of Inspired Oxygen 21 04/16/24 20:00 04/16/24 20:04 04/16/24 21:17 Temperature 98.2 F Pulse Rate 85 93 Respiratory Rate 20 18 Blood Pressure 141/53 H Pulse Oximetry 91 Oxygen Delivery Room Air Fraction of Inspired Oxygen 04/17/24 01:53 04/17/24 02:00 04/17/24 04:50 Temperature 99.2 F Pulse Rate 84 82 95 Respiratory Rate 20 20 20 Blood Pressure 140/75 Pulse Oximetry 90 Oxygen Delivery Fraction of Inspired Oxygen 04/17/24 08:54 04/17/24 08:54 04/17/24 09:05 Temperature Pulse Rate 93 93 80 Respiratory Rate 20 20 20 Blood Pressure Pulse Oximetry 97 Oxygen Delivery Room Air Fraction of Inspired Oxygen Intake/Output Intake/Output: Intake & Output 04/14/24 04/15/24 04/16/24 04/17/24 23:59 23:59 23:59 23:59 Intake Total 540 4070 4294.6 480 Output Total 2700 3500 300 Balance 540 1370 794.6 180 Meds/Results Medications: Active Medications Generic Name Dose Route Start Last Admin Trade Name Freq PRN Reason Stop Dose Admin Acetaminophen 650 mg 04/14/24 12:47 Acetaminophen 325 Mg Tablet PO Q6H PRN Mild Pain (1-3) or Fever Albuterol/Ipratropium 3 ml 04/14/24 12:56 Ipratropium 0.5 Mg/Albuterol Sulfate 2.5 Mg Ampul.Neb 3 Ml INHALATION Q6HRT PRN Shortness Of Breath Or Wheezing Albuterol/Ipratropium 3 ml 04/14/24 14:00 04/17/24 08:52 Ipratropium 0.5 Mg/Albuterol Sulfate 2.5 Mg Ampul.Neb 3 Ml INHALATION 3 ml Q6HRT BASIL Administration Alprazolam 0.25 mg 04/14/24 22:29 Alprazolam (*Crx) 0.25 Mg Tablet PO DAILY PRN anxiety Aspirin 81 mg 04/15/24 09:00 04/17/24 09:05 Aspirin 81 Mg Enteric Tablet PO 81 mg QAM [facility] [place] Administration Benzocaine 1 lozenge 04/14/24 12:47 Benzocaine/Menthol (*Bkc) 18 Ea Lozenge PO PRN PRN Sore Throat Benzonatate 100 mg 04/14/24 13:00 04/17/24 09:05 Benzonatate 100 Mg Capsule PO 100 mg TID BASIL Administration Bethanechol Chloride 25 mg 04/15/24 09:00 04/17/24 09:05 Bethanechol Chloride 25 Mg Tablet PO 25 mg BID BASIL Administration Buspirone HCl 7.5 mg 04/15/24 09:00 04/17/24 09:04 Buspirone Hcl 2.5 Mg Tablet PO 7.5 mg BID BASIL Administration Calcium Carbonate 500 mg 04/15/24 12:00 04/16/24 18:01 Calcium/Vitamin D 500 Mg/5 Mcg (200 I.U.) Tablet PO 500 mg 1200,1700 BASIL Administration Capsaicin 1 applic 04/14/24 23:17 Capsaicin 0.025% Cream 60 Gm Tube TOPICAL BID PRN Pain Cyclobenzaprine HCl 10 mg 04/14/24 22:29 Cyclobenzaprine Hcl 10 Mg Tablet PO TID PRN Muscle Spasm Dextrose 12.5 gm 04/14/24 12:47 Dextrose 50% 25 Gm/50 Ml Syringe IV PUSH PRN PRN Hypoglycemia Protocol Docusate Sodium 100 mg 04/14/24 22:29 Docusate Sodium 100 Mg Capsule PO DAILY PRN constipation Ferrous Sulfate 325 mg 04/15/24 12:00 04/16/24 12:39 Ferrous Sulfate [address] BY MOUTH 325 mg DAILY@1200 [facility] Administration Glucagon 1 mg 04/14/24 12:47 Glucagon For Inj 1 Mg Vial IM PRN PRN Hypoglycemia Protocol Glucose 15 gm 04/14/24 12:47 Glucose Oral Gel 15 Gm Of Glucse In 37.5 Gm Tube PO PRN PRN Hypoglycemia Protocol Guaifenesin 600 mg 04/14/24 13:00 04/17/24 09:05 Guaifenesin 12 Hr 600 Mg Tabcr PO 600 mg Q12HR [facility]IL Administration Dextrose 1,000 mls @ 100 mls/hr 04/14/24 12:47 Dextrose 5% 1,000 Ml IVPB PRN PRN Hypoglycemia Protocol Sodium Chloride 1,000 mls @ 75 mls/hr 04/14/24 13:05 04/16/24 18:01 Normal Saline Iv IV CONT 75 mls/hr .[id number] [facility]IL Administration Ceftriaxone Sodium 2 gm in 100 mls @ 200 mls/hr 04/17/24 09:00 04/17/24 09:00 Rocephin 2 Gm/Ns 100 Ml IVPB 200 mls/hr Q24H [facility] Administration Insulin Aspart 3 - 6 units 04/14/24 12:00 04/17/24 12:26 Insulin Aspart (*Bkc) 100 Units/Ml SUB-Q Not Given TIDWM [facility] Protocol Insulin Aspart 4 units 04/15/24 11:30 04/16/24 18:00 Insulin Aspart (*Bkc) 100 Units/Ml SUB-Q Not Given 1130,1630 [facility] Insulin Aspart 3 units 04/17/24 08:00 04/17/24 09:07 Insulin Aspart (*Bkc) 100 Units/Ml SUB-Q 3 units 0800 [facility] Administration Insulin Glargine 16 units 04/15/24 09:00 04/17/24 09:06 Insulin Glargine (*Bkc) 100 Units/Ml SUB-Q 16 units DAILY [facility] Administration Levothyroxine Sodium 25 mcg 04/15/24 06:30 04/17/24 05:56 Levothyroxine Sodium 25 Mcg Tablet PO 25 mcg DAILY@0630 [facility] Administration Levothyroxine Sodium 112 mcg 04/15/24 06:30 04/17/24 05:56 Levothyroxine Sodium 112 Mcg Tablet PO 112 mcg DAILY@0630 [facility] Administration Lisinopril 10 mg 04/15/24 09:00 04/17/24 09:05 Lisinopril 10 Mg Tablet PO 10 mg DAILY [facility] Administration Loratadine 10 mg 04/15/24 09:00 04/17/24 09:05 Loratadine 10 Mg Tablet PO 10 mg DAILY [facility] Administration Magnesium Oxide 400 mg 04/15/24 09:00 04/17/24 09:05 Magnesium Oxide 400 Mg Tablet PO 400 mg DAILY [facility] [place] Administration Metoclopramide HCl 5 mg 04/15/24 09:00 04/17/24 09:05 Metoclopramide Hcl 5 Mg Tablet PO 5 mg DAILY [facility] Administration Miconazole Nitrate 1 applic 04/17/24 00:25 Miconazole Nitrate 2% Cream 30 Gm Tube TOPICAL BID PRN Rash Ondansetron HCl 4 mg 04/14/24 13:03 Ondansetron Inj 4 Mg/2 Ml Vial IV PUSH Q4H PRN Nausea Oseltamivir Phosphate 75 mg 04/14/24 09:40 04/17/24 09:04 Oseltamivir Phosphate 75 Mg Capsule PO 04/18/24 21:01 75 mg Q12HR [facility] Administration Pantoprazole Sodium 40 mg 04/15/24 09:00 04/17/24 09:05 Pantoprazole 40 Mg Tablet PO 40 mg Q12HR [facility] Administration Pravastatin Sodium 20 mg 04/15/24 09:00 04/17/24 09:05 Pravastatin Sodium 20 Mg Tablet PO 20 mg DAILY [facility] Administration Pregabalin 150 mg 04/14/24 22:30 04/17/24 05:55 Pregabalin (*Crx) 75 Mg Capsule PO 150 mg Q8HR [facility] Administration Sertraline HCl 100 mg 04/15/24 09:00 04/17/24 09:05 Sertraline Hcl 50 Mg Tablet PO 100 mg DAILY [facility] Administration Vitamin D 1,000 units 04/15/24 09:00 04/17/24 09:05 Cholecalciferol 1,000 Units Tablet PO 1,000 units DAILY [facility] Administration Radiology Results: ITS Impressions Chest X-Ray 04/14/24 08:57 IMPRESSION: 1. Mild bibasilar atelectasis. 2. Moderate-sized hiatal hernia. Head CT 04/14/24 12:18 IMPRESSION: 1. No fracture or acute intracranial process. 2. 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 Labs Labs: Laboratory Results - last 24 hr 04/16/24 04/16/24 04/17/24 17:29 20:14 05:36 WBC 4.1 L RBC 3.59 L Hgb 10.5 L Hct 33.0 L MCV 91.9 MCH 29.2 MCHC 31.8 L RDW 13.6 Plt Count 109 L MPV 11.5 H Immature Gran % (Auto) 0.2 Neut % (Auto) 81.1 H Lymph % (Auto) 8.1 L [place] % (Auto) 8.4 Eos % (Auto) 2.0 Baso % (Auto) 0.2 Lymph # (Auto) 0.33 L [place] # (Auto) 0.3 Eos # (Auto) 0.1 Baso # (Auto) 0.0 Abs Immat Gran (auto) 0.01 Absolute Neuts (auto) 3.3 Absolute Nucleated RBC 0.000 Nucleated RBC % 0.0 % Immature Plt Fraction 6.4 Sodium 135 L Potassium 3.2 L Chloride 102 Carbon Dioxide 27 Anion Gap 6 BUN 8 Creatinine 0.50 L Estim Creat Clear Calc 83 Estimated GFR > 60 Glucose 207 H POC Capillary Glucose 77 104 Calcium 8.3 L Magnesium 1.4 L Total Bilirubin 0.7 AST 35 ALT 26 Alkaline Phosphatase 69 Total Protein 6.0 L Albumin 3.2 L 04/17/24 04/17/24 08:39 11:53 WBC RBC Hgb Hct MCV MCH MCHC RDW Plt Count MPV Immature Gran % (Auto) Neut % (Auto) Lymph % (Auto) [place] % (Auto) Eos % (Auto) Baso % (Auto) Lymph # (Auto) [place] # (Auto) Eos # (Auto) Baso # (Auto) Abs Immat Gran (auto) Absolute Neuts (auto) Absolute Nucleated RBC Nucleated RBC % % Immature Plt Fraction Sodium Potassium Chloride Carbon Dioxide Anion Gap BUN Creatinine Estim Creat Clear Calc Estimated GFR Glucose POC Capillary Glucose 203 H 143 H Calcium Magnesium Total Bilirubin AST ALT Alkaline Phosphatase Total Protein Albumin Quality VTE Prophylaxis VTE prophylaxis: mechanical ordered
[2024-04-17] MEDS: MAGNESIUM SULF 2 GM/WATER 50ML 2 GM/50 ML BAG IVPB (13:13)
[2024-04-17] MEDS: FERROUS SULFATE 325 MG TABLET DR BY MOUTH (13:14)
[2024-04-17] MEDS: CALCIUM/VITAMIN D 500 MG/5 MCG (200 I.U.) TABLET PO ×2 (13:14→18:39)
[2024-04-17 17:32] LABS: Glucose Point of Care 44 mg/dl (65-105)
[2024-04-17 18:03] LABS: Glucose Point of Care 83 mg/dl (65-105)
[2024-04-17 21:52] LABS: Glucose Point of Care 270 mg/dl (65-105)
[2024-04-18 00:13] VITALS: BP 170/88; PULSE 80; RESP 20; TEMP 37.5; O2SAT 93
[2024-04-18 00:17] VITALS: BP 159/80; PULSE 80; RESP 20; TEMP 37.5; O2SAT 93
[2024-04-18 00:20] VITALS: BP 166/75; PULSE 95; RESP 20; TEMP 37.5; O2SAT 94
[2024-04-18] MEDS: SODIUM CHLORIDE 0.9% IV 1,000 ML 75 ML IV CONT (01:36)
[2024-04-18 05:03] VITALS: BP 166/70; PULSE 71; RESP 18; TEMP 36.6; O2SAT 92
[2024-04-18] MEDS: LEVOTHYROXINE SODIUM 25 MCG TABLET PO (06:09)
[2024-04-18] MEDS: PREGABALIN (*CRX) 75 MG CAPSULE 150 MG PO ×2 (06:09→13:50)
[2024-04-18] MEDS: LEVOTHYROXINE SODIUM 112 MCG TABLET PO (06:09)
[2024-04-18 06:23] LABS: Basophils Percent Auto 0.4 % (0.2-1.2); Eosinophils Absolute Auto 0.1 K/mm3 (0-0.3); Eosinophils Percent Auto 3.3 % (0-4.4); Hematocrit 34.8 % (37.0-47.0); Hemoglobin 11.1 g/dL (12.0-15.0); Immature Granulocyte Absolute 0.01 K/mm3 (0.00-0.031); Immature Granulocyte Percent A 0.4 % (0-0.5); Immature Platelet Fraction Pct 7.1 % (0.9-11.2); Lymphocytes Absolute Auto 0.48 K/mm3 (0.9-3.2); Lymphocytes Percent Auto 19.6 % (18.3-44.2); Mean Corpuscular HGB Conc 31.9 g/dl (32-36); Mean Corpuscular Hemoglobin 28.9 pg (26-34); Mean Corpuscular Volume 90.6 fl (80-100); Mean Platelet Volume 11.7 fl (7.4-10.4); Monocytes Absolute Auto 0.3 K/mm3 (0.1-0.6); Monocytes Percent Auto 13.1 % (2.6-8.5); Neutrophils Absolute Auto 1.6 K/mm3 (1.3-6.7); Neutrophils Percent Auto 63.2 % (45.5-73.1); Platelet Count Result 116 k/mm3 (150-375); Red Blood Count 3.84 M/mm3 (4.2-5.4); Red Cell Distribution Width 13.4 % (11.5-14.5); White Blood Count 2.5 K/mm3 (4.5-10.0)
[2024-04-18 06:32] LABS: Alanine Aminotransferase 24 U/L (6-35); Albumin Level 3.2 g/dL (3.5-5.1); Alkaline Phosphatase 68 U/L (38-126); Anion Gap 6 mmol/L (4-12); Aspartate Amino Transferase 35 U/L (14-36); Bilirubin,Total 0.6 mg/dL (0.2-1.3); Blood Urea Nitrogen 9 mg/dL (7-17); Calcium 8.8 mg/dL (8.4-10.2); Carbon Dioxide 28 mmol/L (22-30); Chloride 99 mmol/L (98-107); Estimated CRCL calculation 89 ml/min; Estimated Glomerular Filt Rate > 60; Glucose 219 mg/dL (65-110); Magnesium 1.7 mg/dL (1.6-2.3); Potassium 3.6 mmol/L (3.4-5.0); Sodium 133 mmol/L (137-145)
--- NOTE | 2024-04-18 08:14 | PM.IMPN ---
Progress Note: A&P Assessment and Plan (1) Syncope: Qualifiers: Syncope type: unspecified Qualified Code(s): R55 - Syncope and collapse Code(s): R55 - Syncope and collapse Status: Acute Assessment and Plan: - EKG, initial: Sinus rhythm, right bundle branch block, baseline artifact. When compared to EKG done in August of 2023, no significant changes. - CXR: 1. Mild bibasilar atelectasis. 2. Moderate-sized hiatal hernia. - head CT: 1. No fracture or acute intracranial process. 2. 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 -hemoglobin stable -orthostatics negative - fall precautions - telemetry monitoring Suspect syncope is secondary to the patient's new hypoxia due to her current viral infections. No pneumonia on chest x-ray. (2) Influenza A: Code(s): J10.1 - Influenza due to other identified influenza virus with other respiratory manifestations Status: Acute Assessment and Plan: - tested positive for influenza A on 04/14 - Tamiflu 75 mg BID - supportive care: Tylenol p.r.n. Mucinex basil DuoNeb p.r.n. Tessalon Perles p.r.n. Lozenge p.r.n. - monitor WBC/CBC (3) Respiratory syncytial virus (RSV): Qualifiers: RSV infection type: unspecified Qualified Code(s): B33.8 - Other specified viral diseases Code(s): B33.8 - Other specified viral diseases Status: Acute Assessment and Plan: - tested positive for RSV on 04/14 - supportive care, see above (4) Type 1 diabetes mellitus: Qualifiers: Diabetes mellitus complication detail: without coma Diabetes mellitus complication status: with hypoglycemia Qualified Code(s): E10.649 - Type 1 diabetes mellitus with hypoglycemia without coma Code(s): E10.9 - Type 1 diabetes mellitus without complications Status: Chronic Assessment and Plan: - hypoglycemia protocol - POC blood glucose ACHS - correct regimen ordered - moderate dose TIDWM, based off BMI - A1C 7.8% on 08/23/2023, update (5) Hypertension: Qualifiers: Hypertension type: unspecified Qualified Code(s): I10 - Essential (primary) hypertension Code(s): I10 - Essential (primary) hypertension Status: Chronic Assessment and Plan: - chronic, currently 140/75 - continue home medications - monitor (6) UTI (urinary tract infection): Code(s): N39.0 - Urinary tract infection, site not specified Status: Acute Assessment and Plan: Urine positive for E coli Ceftriaxone 2 gram IVPB daily. Plan Diet: Diabetic GI Prophylaxis: Not currently indicated DVT Prophylaxis: SCDs Lines: Peripheral Code Status: Full code Time Spent With Patient Time with patient: Greater than 35 minutes Subjective Date/time seen: 04/18/24 08:14 Interval history: 74 y/o F presents here with generalized weakness and syncope with PMH of DM1, legally blind secondary to diabetic retinopathy, CVA, esophageal ulcers/erosive esophagitis, anxiety, depression, hypothyroidism, hyperlipidemia, and hypertension. Review of Systems Review of Systems: 12 systems were reviewed and are negative except for as per HPI. All systems reviewed & are unremarkable except as noted in HPI and below Exam Narrative: General: well appearing, appears stated age. HEENT: normocephalic, atraumatic. Mucous membranes moist. EOMI, PERRLA, bilateral sclera anicteric, no conjunctival injection. Neck supple without JVD, lymphadenopathy, or bruit. Respiratory: clear to ascultation bilaterally. No rales/rhonic/wheezes. Cardiovascular: Regular rate and rhythm, normal S1-S2 upon ascultation. No murmurs, rubs, or clicks. PMI is nondisplaced, capillary refill less than 3 second. Abdomen: Soft, round, no pulsatile masses, nondistended and nontender. No rebound, no guarding. No CVA tenderness, no hepatosplenomegaly. Bowel sounds present to all four quadrants. No high pitch or tinkling sounds, resonant to percussion. Extremities: No cyanosis, clubbing, or edema present. Pulses are palpable 2/2. Active ROM to all four extremities. Neuro: Alert and orientated x 4. PERRLA. Cranial nerves 2-12 intact without focal deficit. Skin: Warm, dry, and intact, without rash, erythema, or lesion. Psych: pleasant, cooperative, normal speech, normal affect, no hallucinations, no dysarthia Objective Data Vital Signs Vital Signs: Vital Signs - 24 hr 04/17/24 08:54 04/17/24 08:54 04/17/24 09:05 Temperature Pulse Rate 93 93 80 Respiratory Rate 20 20 20 Blood Pressure Pulse Oximetry 97 Oxygen Delivery Room Air 04/17/24 14:00 04/17/24 20:00 04/17/24 21:33 Temperature 99.1 F 99.1 F Pulse Rate 93 80 Respiratory Rate 12 20 Blood Pressure 154/70 H 153/71 H Pulse Oximetry 91 92 Oxygen Delivery Room Air 04/18/24 00:13 04/18/24 00:17 04/18/24 00:20 Temperature 99.5 F 99.5 F 99.5 F Pulse Rate 80 80 95 Respiratory Rate 20 20 20 Blood Pressure 170/88 H 159/80 H 166/75 H Pulse Oximetry 93 93 94 Oxygen Delivery 04/18/24 05:03 Temperature 97.9 F Pulse Rate 71 Respiratory Rate 18 Blood Pressure 166/70 H Pulse Oximetry 92 Oxygen Delivery Intake/Output Intake/Output: Intake & Output 04/15/24 04/16/24 04/17/24 04/18/24 23:59 23:59 23:59 23:59 Intake Total 4070 4294.6 3100 290 Output Total 2700 3500 300 Balance 1370 794.6 2800 290 Meds/Results Medications: Active Medications Generic Name Dose Route Start Last Admin Trade Name Freq PRN Reason Stop Dose Admin Acetaminophen 650 mg 04/14/24 12:47 Acetaminophen 325 Mg Tablet PO Q6H PRN Mild Pain (1-3) or Fever Albuterol/Ipratropium 3 ml 04/14/24 12:56 Ipratropium 0.5 Mg/Albuterol Sulfate 2.5 Mg Ampul.Neb 3 Ml INHALATION Q6HRT PRN Shortness Of Breath Or Wheezing Alprazolam 0.25 mg 04/14/24 22:29 Alprazolam (*Crx) 0.25 Mg Tablet PO DAILY PRN anxiety Aspirin 81 mg 04/15/24 09:00 04/17/24 09:05 Aspirin 81 Mg Enteric Tablet PO 81 mg QAM COUNT INCLUDES [facility] Administration Benzocaine 1 lozenge 04/14/24 12:47 Benzocaine/Menthol (*Bkc) 18 Ea Lozenge PO PRN PRN Sore Throat Benzonatate 100 mg 04/14/24 13:00 04/17/24 18:40 Benzonatate 100 Mg Capsule PO 100 mg TID BASIL Administration Bethanechol Chloride 25 mg 04/15/24 09:00 04/17/24 18:40 Bethanechol Chloride 25 Mg Tablet PO 25 mg BID BASIL Administration Buspirone HCl 7.5 mg 04/15/24 09:00 04/17/24 18:40 Buspirone Hcl 2.5 Mg Tablet PO 7.5 mg BID BASIL Administration Calcium Carbonate 500 mg 04/15/24 12:00 04/17/24 18:39 Calcium/Vitamin D 500 Mg/5 Mcg (200 I.U.) Tablet PO 500 mg 1200,1700 BASIL Administration Capsaicin 1 applic 04/14/24 23:17 Capsaicin 0.025% Cream 60 Gm Tube TOPICAL BID PRN Pain Cyclobenzaprine HCl 10 mg 04/14/24 22:29 Cyclobenzaprine Hcl 10 Mg Tablet PO TID PRN Muscle Spasm Dextrose 12.5 gm 04/14/24 12:47 Dextrose 50% 25 Gm/50 Ml Syringe IV PUSH PRN PRN Hypoglycemia Protocol Docusate Sodium 100 mg 04/14/24 22:29 Docusate Sodium 100 Mg Capsule PO DAILY PRN constipation Ferrous Sulfate 325 mg 04/15/24 12:00 04/17/24 13:14 Ferrous Sulfate [address] BY MOUTH 325 mg DAILY@1200 BASIL Administration Glucagon 1 mg 04/14/24 12:47 Glucagon For Inj 1 Mg Vial IM PRN PRN Hypoglycemia Protocol Glucose 15 gm 04/14/24 12:47 Glucose Oral Gel 15 Gm Of Glucse In 37.5 Gm Tube PO PRN PRN Hypoglycemia Protocol Guaifenesin 600 mg 04/14/24 13:00 04/17/24 21:03 Guaifenesin 12 Hr 600 Mg Tabcr PO 600 mg Q12HR BASIL Administration Dextrose 1,000 mls @ 100 mls/hr 04/14/24 12:47 Dextrose 5% 1,000 Ml IVPB PRN PRN Hypoglycemia Protocol Sodium Chloride 1,000 mls @ 75 mls/hr 04/14/24 13:05 04/18/24 01:36 Normal Saline Iv IV CONT 75 mls/hr .[id number] BASIL Administration Ceftriaxone Sodium 2 gm in 100 mls @ 200 mls/hr 04/17/24 09:00 04/17/24 09:30 Rocephin 2 Gm/Ns 100 Ml IVPB Infused Q24H BASIL Infusion Insulin Aspart 3 - 6 units 04/14/24 12:00 04/17/24 17:34 Insulin Aspart (*Bkc) 100 Units/Ml SUB-Q Not Given TIDWM COUNT INCLUDES THE [facility] Protocol Insulin Aspart 4 units 04/15/24 11:30 04/17/24 17:34 Insulin Aspart (*Bkc) 100 Units/Ml SUB-Q Not Given 1130,1630 COUNT INCLUDES THE [facility] Insulin Aspart 3 units 04/17/24 08:00 04/17/24 09:07 Insulin Aspart (*Bkc) 100 Units/Ml SUB-Q 3 units 0800 COUNT INCLUDES THE [facility] Administration Insulin Glargine 16 units 04/15/24 09:00 04/17/24 09:06 Insulin Glargine (*Bkc) 100 Units/Ml SUB-Q 16 units DAILY COUNT INCLUDES THE [facility] Administration Levothyroxine Sodium 25 mcg 04/15/24 06:30 04/18/24 06:09 Levothyroxine Sodium 25 Mcg Tablet PO 25 mcg DAILY@0630 COUNT INCLUDES THE [facility] Administration Levothyroxine Sodium 112 mcg 04/15/24 06:30 04/18/24 06:09 Levothyroxine Sodium 112 Mcg Tablet PO 112 mcg DAILY@0630 COUNT INCLUDES THE [facility] Administration Lisinopril 10 mg 04/15/24 09:00 04/17/24 09:05 Lisinopril 10 Mg Tablet PO 10 mg DAILY COUNT INCLUDES THE [facility] Administration Loratadine 10 mg 04/15/24 09:00 04/17/24 09:05 Loratadine 10 Mg Tablet PO 10 mg DAILY COUNT INCLUDES THE [facility] Administration Magnesium Oxide 400 mg 04/15/24 09:00 04/17/24 09:05 Magnesium Oxide 400 Mg Tablet PO 400 mg DAILY COUNT INCLUDES [facility] Administration Metoclopramide HCl 5 mg 04/15/24 09:00 04/17/24 09:05 Metoclopramide Hcl 5 Mg Tablet PO 5 mg DAILY COUNT INCLUDES THE [facility] Administration Miconazole Nitrate 1 applic 04/17/24 00:25 Miconazole Nitrate 2% Cream 30 Gm Tube TOPICAL BID PRN Rash Ondansetron HCl 4 mg 04/14/24 13:03 Ondansetron Inj 4 Mg/2 Ml Vial IV PUSH Q4H PRN Nausea Oseltamivir Phosphate 75 mg 04/14/24 09:40 04/17/24 21:03 Oseltamivir Phosphate 75 Mg Capsule PO 04/18/24 21:01 75 mg Q12HR COUNT INCLUDES THE [facility] Administration Pantoprazole Sodium 40 mg 04/15/24 09:00 04/17/24 21:03 Pantoprazole 40 Mg Tablet PO 40 mg Q12HR BASIL Administration Pravastatin Sodium 20 mg 04/15/24 09:00 04/17/24 09:05 Pravastatin Sodium 20 Mg Tablet PO 20 mg DAILY BASIL Administration Pregabalin 150 mg 04/14/24 22:30 04/18/24 06:09 Pregabalin (*Crx) 75 Mg Capsule PO 150 mg Q8HR BASIL Administration Sertraline HCl 100 mg 04/15/24 09:00 04/17/24 09:05 Sertraline Hcl 50 Mg Tablet PO 100 mg DAILY BASIL Administration Vitamin D 1,000 units 04/15/24 09:00 04/17/24 09:05 Cholecalciferol 1,000 Units Tablet PO 1,000 units DAILY BASIL Administration Radiology Results: ITS Impressions Chest X-Ray 04/14/24 08:57 IMPRESSION: 1. Mild bibasilar atelectasis. 2. Moderate-sized hiatal hernia. Head CT 04/14/24 12:18 IMPRESSION: 1. No fracture or acute intracranial process. 2. 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 Labs Labs: Laboratory Results - last 24 hr 04/17/24 04/17/24 04/17/24 08:39 11:53 17:29 WBC RBC Hgb Hct MCV MCH MCHC RDW Plt Count MPV Immature Gran % (Auto) Neut % (Auto) Lymph % (Auto) [place] % (Auto) Eos % (Auto) Baso % (Auto) Lymph # (Auto) [place] # (Auto) Eos # (Auto) Baso # (Auto) Abs Immat Gran (auto) Absolute Neuts (auto) Absolute Nucleated RBC Nucleated RBC % % Immature Plt Fraction Sodium Potassium Chloride Carbon Dioxide Anion Gap BUN Creatinine Estim Creat Clear Calc Estimated GFR Glucose POC Capillary Glucose 203 H 143 H 44 L* Calcium Magnesium Total Bilirubin AST ALT Alkaline Phosphatase Total Protein Albumin 04/17/24 04/17/24 04/18/24 17:59 21:32 05:56 WBC 2.5 L RBC 3.84 L Hgb 11.1 L Hct 34.8 L MCV 90.6 MCH 28.9 MCHC 31.9 L RDW 13.4 Plt Count 116 L MPV 11.7 H Immature Gran % (Auto) 0.4 Neut % (Auto) 63.2 Lymph % (Auto) 19.6 [place] % (Auto) 13.1 H Eos % (Auto) 3.3 Baso % (Auto) 0.4 Lymph # (Auto) 0.48 L [place] # (Auto) 0.3 Eos # (Auto) 0.1 Baso # (Auto) 0.0 Abs Immat Gran (auto) 0.01 Absolute Neuts (auto) 1.6 Absolute Nucleated RBC 0.000 Nucleated RBC % 0.0 % Immature Plt Fraction 7.1 Sodium 133 L Potassium 3.6 Chloride 99 Carbon Dioxide 28 Anion Gap 6 BUN 9 Creatinine 0.46 L Estim Creat Clear Calc 89 Estimated GFR > 60 Glucose 219 H POC Capillary Glucose 83 270 H Calcium 8.8 Magnesium 1.7 Total Bilirubin 0.6 AST 35 ALT 24 Alkaline Phosphatase 68 Total Protein 6.0 L Albumin 3.2 L Quality VTE Prophylaxis VTE prophylaxis: mechanical ordered
[2024-04-18 08:24] LABS: Glucose Point of Care 217 mg/dl (65-105)
[2024-04-18] MEDS: INSULIN ASPART (*BKC) 100 UNITS/ML SUB-Q ×4 (09:07→12:18)
[2024-04-18] MEDS: INSULIN GLARGINE (*BKC) 100 UNITS/ML 16 UNITS SUB-Q (09:08)
[2024-04-18 09:10] VITALS: O2SAT 95
[2024-04-18] MEDS: ASPIRIN 81 MG ENTERIC TABLET PO (09:11)
[2024-04-18] MEDS: busPIRone HCL 2.5 MG TABLET 7.5 MG PO ×2 (09:12→16:42)
[2024-04-18] MEDS: BETHANECHOL CHLORIDE 25 MG TABLET PO ×2 (09:12→16:43)
[2024-04-18] MEDS: BENZONATATE 100 MG CAPSULE PO ×3 (09:12→16:42)
[2024-04-18] MEDS: guaiFENesin 12 HR 600 MG TABCR PO (09:14)
[2024-04-18] MEDS: MAGNESIUM OXIDE 400 MG TABLET PO (09:14)
[2024-04-18] MEDS: CHOLECALCIFEROL 1,000 UNITS TABLET 1000 UNITS PO (09:14)
[2024-04-18] MEDS: LORATADINE 10 MG TABLET PO (09:14)
[2024-04-18] MEDS: SERTRALINE HCL 50 MG TABLET 100 MG PO (09:14)
[2024-04-18] MEDS: PRAVASTATIN SODIUM 20 MG TABLET PO (09:15)
[2024-04-18] MEDS: PANTOPRAZOLE 40 MG TABLET PO (09:15)
[2024-04-18] MEDS: METOCLOPRAMIDE HCL 5 MG TABLET PO (09:15)
[2024-04-18] MEDS: OSELTAMIVIR PHOSPHATE 75 MG CAPSULE PO (09:16)
[2024-04-18] MEDS: lisinopriL 10 MG TABLET PO (09:17)
[2024-04-18] MEDS: cefTRIAXone 2 GM/NS 100 ML 2 GM/100 ML BAG IVPB (09:18)
[2024-04-18 12:13] LABS: Glucose Point of Care 277 mg/dl (65-105)
[2024-04-18] MEDS: CALCIUM/VITAMIN D 500 MG/5 MCG (200 I.U.) TABLET PO ×2 (12:19→16:44)
[2024-04-18] MEDS: FERROUS SULFATE 325 MG TABLET DR BY MOUTH (12:19)
[2024-04-18 14:00] VITALS: BP 141/56; PULSE 78; RESP 14; TEMP 36.6; O2SAT 95
--- NOTE | 2024-04-18 15:07 | P.DS_ITS ---
DS: Admitting Diagnosis Discharge Date 04/18/2024 Admitting Diagnosis Syncope DS: Discharge Diagnosis Discharge Diagnosis (1) Syncope: Qualifiers: Syncope type: unspecified Qualified Code(s): R55 - Syncope and collapse Code(s): R55 - Syncope and collapse Status: Acute Assessment and Plan: Improved - EKG, initial: Sinus rhythm, right bundle branch block, baseline artifact. When compared to EKG done in August of 2023, no significant changes. - CXR: 1. Mild bibasilar atelectasis. 2. Moderate-sized hiatal hernia. - head CT: 1. No fracture or acute intracranial process. 2. 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 -hemoglobin stable -orthostatics negative - fall precautions - telemetry monitoring Suspect syncope is secondary to the patient's new hypoxia due to her current viral infections. No pneumonia on chest x-ray. (2) Influenza A: Code(s): J10.1 - Influenza due to other identified influenza virus with other respiratory manifestations Status: Acute Assessment and Plan: Improving - tested positive for influenza A on 04/14 - Tamiflu 75 mg BID - supportive care: Tylenol p.r.n. Mucinex basil DuoNeb p.r.n. Tessalon Perles p.r.n. Lozenge p.r.n. - monitor WBC/CBC (3) Respiratory syncytial virus (RSV): Qualifiers: RSV infection type: unspecified Qualified Code(s): B33.8 - Other specified viral diseases Code(s): B33.8 - Other specified viral diseases Status: Acute Assessment and Plan: - tested positive for RSV on 04/14 - supportive care, see above (4) Type 1 diabetes mellitus: Qualifiers: Diabetes mellitus complication detail: without coma Diabetes mellitus complication status: with hypoglycemia Qualified Code(s): E10.649 - Type 1 diabetes mellitus with hypoglycemia without coma Code(s): E10.9 - Type 1 diabetes mellitus without complications Status: Chronic Assessment and Plan: - hypoglycemia protocol - POC blood glucose ACHS - correct regimen ordered - moderate dose TIDWM, based off BMI - A1C 7.8% on 08/23/2023, update (5) Hypertension: Qualifiers: Hypertension type: unspecified Qualified Code(s): I10 - Essential (primary) hypertension Code(s): I10 - Essential (primary) hypertension Status: Chronic Assessment and Plan: - chronic, currently 140/75 - continue home medications - monitor (6) UTI (urinary tract infection): Code(s): N39.0 - Urinary tract infection, site not specified Status: Acute Assessment and Plan: Improving * Urine positive for E coli * Ceftriaxone 2 gram IVPB daily. * IV antibiotics transition to p.o. Plan Diet: Diabetic GI Prophylaxis: Not currently indicated DVT Prophylaxis: SCDs Lines: Peripheral Code Status: Full code DS: Summary Hospital Course Reason for hospitalization: Syncope related to hypoxia and UTI Hospital Course: 74 y/o F presents here with generalized weakness and syncope with PMH of DM1, legally blind secondary to diabetic retinopathy, CVA, esophageal ulcers/erosive esophagitis, anxiety, depression, hypothyroidism, hyperlipidemia, and hypertension. Patient was found to have influenza a and started on Tamiflu along with the UTI started on Rocephin. Patient did not have positive orthostatic vital signs. Her syncope was related to severe hypoxia due to upper respiratory infection and weakness from UTI. She did well PT and OT and is stable for discharge. Hospital course uneventful Status at Discharge Functional status at discharge: independent ambulation Time Spent with Patient Time attestation: Total time spent providing and/or coordinating discharge services: Time spent: Greater than 30 minutes Exam Narrative: General: well appearing, appears stated age. HEENT: normocephalic, atraumatic. Mucous membranes moist. EOMI, PERRLA, bilateral sclera anicteric, no conjunctival injection. Neck supple without JVD, lymphadenopathy, or bruit. Respiratory: clear to ascultation bilaterally. No rales/rhonic/wheezes. Cardiovascular: Regular rate and rhythm, normal S1-S2 upon ascultation. No murmurs, rubs, or clicks. PMI is nondisplaced, capillary refill less than 3 second. Abdomen: Soft, round, no pulsatile masses, nondistended and nontender. No rebound, no guarding. No CVA tenderness, no hepatosplenomegaly. Bowel sounds present to all four quadrants. No high pitch or tinkling sounds, resonant to percussion. Extremities: No cyanosis, clubbing, or edema present. Pulses are palpable 2/2. Active ROM to all four extremities. Neuro: Alert and orientated x 4. PERRLA. Cranial nerves 2-12 intact without focal deficit. Skin: Warm, dry, and intact, without rash, erythema, or lesion. Psych: pleasant, cooperative, normal speech, normal affect, no hallucinations, no dysarthia DS: Data Data Completed and Pending Labs on day of discharge: Labs from last 24 hours 04/18/24 04/18/24 04/18/24 12:07 08:19 05:56 WBC 2.5 L RBC 3.84 L Hgb 11.1 L Hct 34.8 L MCV 90.6 MCH 28.9 MCHC 31.9 L RDW 13.4 Plt Count 116 L MPV 11.7 H Immature Gran % (Auto) 0.4 Neut % (Auto) 63.2 Lymph % (Auto) 19.6 [place] % (Auto) 13.1 H Eos % (Auto) 3.3 Baso % (Auto) 0.4 Lymph # (Auto) 0.48 L [place] # (Auto) 0.3 Eos # (Auto) 0.1 Baso # (Auto) 0.0 Abs Immat Gran (auto) 0.01 Absolute Neuts (auto) 1.6 Absolute Nucleated RBC 0.000 Nucleated RBC % 0.0 % Immature Plt Fraction 7.1 Sodium 133 L Potassium 3.6 Chloride 99 Carbon Dioxide 28 Anion Gap 6 BUN 9 Creatinine 0.46 L Estim Creat Clear Calc 89 Estimated GFR > 60 Glucose 219 H POC Capillary Glucose 277 H 217 H Calcium 8.8 Magnesium 1.7 Total Bilirubin 0.6 AST 35 ALT 24 Alkaline Phosphatase 68 Total Protein 6.0 L Albumin 3.2 L 04/17/24 04/17/24 04/17/24 21:32 17:59 17:29 WBC RBC Hgb Hct MCV MCH MCHC RDW Plt Count MPV Immature Gran % (Auto) Neut % (Auto) Lymph % (Auto) [place] % (Auto) Eos % (Auto) Baso % (Auto) Lymph # (Auto) [place] # (Auto) Eos # (Auto) Baso # (Auto) Abs Immat Gran (auto) Absolute Neuts (auto) Absolute Nucleated RBC Nucleated RBC % % Immature Plt Fraction Sodium Potassium Chloride Carbon Dioxide Anion Gap BUN Creatinine Estim Creat Clear Calc Estimated GFR Glucose POC Capillary Glucose 270 H 83 44 L* Calcium Magnesium Total Bilirubin AST ALT Alkaline Phosphatase Total Protein Albumin Discharge Plan Discharge Consulting providers: Rina Leos; Marli Andrews; Son Chow; Jerilyn Garza; Nahun Klein Discharging Clinician: Marli Andrews Anticipated Discharge Date/Time: 04/18/24 15:09 Patient Disposition: [facility] Activity: may shower Diet: regular and diabetic Discharge Instructions: Discharge instructions: Take medications as prescribed New medications prescribed: You have been started on a 5 day antibiotic course will start tomorrow for UTI Will year bolus insulin for lunch and dinner has been reduced to 2 units due to hypoglycemia and afternoon please follow-up with her primary care provider in 2 weeks You are activity as tolerated Monitor blood pressures Avoid social areas, you wear a mask when in social settings Encouraged to continue with yearly vaccinations Return to the emergency department if he developed sudden shortness of breath, chest pain, nausea, vomiting, upset stomach or intractable diarrhea Return to the emergency department if you develop fever greater than 101.5 Follow-up with: Your primary care physician within 1-2 weeks for post hospitalization check up Thank you for [facility] for your healthcare needs Patient Instructions: Antibiotic Form Patient Language: Portuguese Stand Alone Forms: General Discharge Information Follow-up/Referrals: Chalino Mora APRN [Primary Care Provider] - 2 Weeks Discharge Medications: Continued Glucagon Emergency Kit (human) 1 mg recon soln 1 mg subcut ONCE PRN (Reason: hypoglycemia) Qty: 1 2RF Rx Instructions: may repeat in 15 minutes cholecalciferol (vitamin D3) 25 mcg (1,000 unit) tablet 25 mcg PO DAILY Qty: 90 3RF (DME) FreeStyle [place] 2 Sensor Kit See Rx Instructions .ROUTE .MEDSUPPLY Qty: 8 2RF Rx Instructions: replace sensor every 14 days pravastatin 20 mg tablet 20 mg PO DAILY Qty: 90 1RF lisinopril 10 mg tablet 10 mg PO DAILY Qty: 90 1RF ketoconazole 2 % cream 1 applic topical BID Qty: 60 3RF cyclobenzaprine 10 mg tablet 10 mg PO TID PRN (Reason: Muscle Spasm) aspirin 81 mg Tablet,Delayed Release (Dr/Ec) 81 mg PO QAM Qty: 30 0RF (DME) OneTouch Verio test strips Strip See Rx Instructions .ROUTE .MEDSUPPLY Qty: 400 3RF Rx Instructions: use to check BS 4 times daily (DME) FreeStyle [place] 2 [place] Misc See Rx Instructions .ROUTE .MEDSUPPLY Qty: 1 0RF Rx Instructions: Use to check blood sugar 4 times daily bethanechol chloride 25 mg tablet 25 mg PO BID Qty: 60 5RF magnesium oxide 400 mg (241.3 mg magnesium) tablet 400 mg PO DAILY Qty: 30 5RF ferrous sulfate 325 mg (65 mg iron) tablet 325 mg PO DAILY Qty: 30 5RF sertraline 100 mg tablet 100 mg PO DAILY Qty: 90 3RF omeprazole 40 mg capsule,delayed release(DR/EC) 40 mg PO BID 30 Days Qty: 60 5RF metoclopramide HCl 5 mg tablet 5 mg PO DAILY 90 Days Qty: 90 1RF buspirone 7.5 mg tablet 7.5 mg PO BID Qty: 60 5RF docusate sodium 100 mg tablet 100 mg PO DAILY PRN (Reason: constipation) Qty: 30 5RF diphenoxylate-atropine [Lomotil] 2.5-0.025 mg tablet 1 - 2 tablet PO QID PRN (Reason: diarrhea) Qty: 30 0RF lidocaine-prilocaine 2.5-2.5 % cream See Rx Instructions .ROUTE .COMPLEX Qty: 60 0RF Dose Instruction: APPLY TO AFFECTED AREA DAILY DIRECTED Rx Instructions: APPLY TO AFFECTED AREA DAILY DIRECTED- under breast loratadine 10 mg tablet 10 mg PO DAILY Qty: 30 5RF calcium carbonate-vitamin D3 [Calcium 600 + D(3)] 600 mg-5 mcg (200 unit) tablet 1 tablet PO BID Qty: 180 1RF capsaicin 0.1 % cream 1 applic topical BID PRN (Reason: pain) Qty: 60 1RF Rx Instructions: do not wash area for at least 30 min after application levothyroxine 137 mcg tablet 137 mcg PO DAILY 90 Days Qty: 90 1RF (DME) incontinence pad, liner, disp Pad See Rx Instructions .Route Qty: 60 11RF Rx Instructions: As directed Tresiba FlexTouch U-200 200 unit/mL (3 mL) insulin pen See Rx Instructions .ROUTE .COMPLEX Qty: 9 5RF Dose Instruction: INJECT 16 UNITS SUBCUTANEOUS IN THE MORNING Rx Instructions: INJECT 16 UNITS SUBCUTANEOUS IN THE MORNING alprazolam 0.25 mg tablet 0.25 mg PO DAILY PRN (Reason: anxiety) Qty: 30 2RF Rx Instructions: TAKE 1 TABLET BY MOUTH DAILY NEEDED pregabalin 150 mg capsule 150 mg PO Q8H 90 Days Qty: 270 1RF Changed insulin lispro [Humalog KwikPen Insulin] 100 unit/mL insulin pen See Rx Instructions .ROUTE .COMPLEX Qty: 27 1RF Dose Instruction: INJECT 4 UNITS SUB-Q THREE TIMES DAILY BEFORE MEALS SKIP IF BS <70 Rx Instructions: INJECT 3 UNITS before breakfast and 2 units before lunch and 2 units before dinner with a sliding scale SKIP IF BS <70 Date of admission: 04/14/24 13:03 Primary Care Provider: Chalino Mora Admitting Provider: Justin Perez Attending physician on admission: Justin Perez Condition: Stable Quality VTE Prophylaxis VTE prophylaxis: mechanical ordered Hospitalist MIPS Heart Failure (Exclusion) Patient has history of Heart Transplant or Left Ventricular Assistive Device?: No IF YES, STOP HERE Heart Failure (Qualifier) Patient has current or prior documentation of LVEF less than or equal to 40%, or mod/servere depressed LVSF?: No IF NO, STOP HERE
[2024-04-18] MEDS: GLUCOSE ORAL GEL 15 GM OF GLUCSE IN 37.5 GM TUBE PO (16:36)
[2024-04-18 16:37] LABS: Glucose Point of Care 55 mg/dl (65-105)
[2024-04-18 16:55] LABS: Glucose Point of Care 103 mg/dl (65-105)
== END 2024-04-18 18:15 ==
LOC: ANHED 11:36 → ANHIMU 15:01 → ANH2MED 16:40
PROVIDERS: Nurse Practitioner Family; Student in an Organized Health Care Education/Training Program; Admitting Provider General Practice; Emergency Provider Emergency Medicine; PCP Nurse Practitioner; Visit Provider General Practice
DX: J10.1 Influenza due to other identified influenza virus with other respiratory manifestations (principal); B33.8 Other specified viral diseases; R09.02 Hypoxemia; R55 Syncope and collapse; N39.0 Urinary tract infection, site not specified; B96.20 Unspecified Escherichia coli [E. coli] as the cause of diseases classified elsewhere; I10 Essential (primary) hypertension; E10.649 Type 1 diabetes mellitus with hypoglycemia without coma; E10.319 Type 1 diabetes mellitus with unspecified diabetic retinopathy without macular edema; H35.30 Unspecified macular degeneration; E10.40 Type 1 diabetes mellitus with diabetic neuropathy, unspecified; K21.9 Gastro-esophageal reflux disease without esophagitis; M81.0 Age-related osteoporosis without current pathological fracture; E78.5 Hyperlipidemia, unspecified; E55.9 Vitamin D deficiency, unspecified; K22.10 Ulcer of esophagus without bleeding; F41.9 Anxiety disorder, unspecified; F32.A Depression, unspecified; E03.9 Hypothyroidism, unspecified; Z20.822 Contact with and (suspected) exposure to COVID-19; Z86.73 Personal history of transient ischemic attack (TIA), and cerebral infarction without residual deficits; Z98.42 Cataract extraction status, left eye; Z98.41 Cataract extraction status, right eye; Z79.85 Long-term (current) use of injectable non-insulin antidiabetic drugs; Z79.4 Long term (current) use of insulin; Z79.82 Long term (current) use of aspirin; Z79.899 Other long term (current) drug therapy
CPT/HCPCS: 36415; 70450; 71046; 80053; 81001; 82948; 83036; 83735; 84100; 84484; 85025; 85055; 86140; 87077; 87086; 87186; 87637; 93005; 94640; 96361; 96365; 96366; 96367; 97161; 97165; 99285; A9270; G0378; J0696; J1815; J3475; J7030; J7120

== ENCOUNTER 2024-04-30 10:10 | Outpatient (CLI) | payer MEDICARE, MEDICAID, SELFPAY | END 2024-04-30 10:11 | disposition home or self-care (01) | LOC: ANHIMG 10:11 | PROVIDERS: PCP Nurse Practitioner; Visit Provider Internal Medicine Endocrinology, Diabetes & Metabolism | DX: M85.89 Other specified disorders of bone density and structure, multiple sites (principal); M81.0 Age-related osteoporosis without current pathological fracture | CPT/HCPCS: 77080 ==

== ENCOUNTER 2024-05-18 10:51 | Outpatient (CLI) | payer MEDICARE, MEDICAID, SELFPAY ==
--- NOTE | ~2024-05-18 | XR_ITS ---
3 VIEWS LUMBAR SPINE Ordering provider: Chalino Mora APRN History: . M54.42 - Lumbago with sciatica, left side . Comparison: None. FINDINGS: VERTEBRAL BODIES: No visible fracture or subluxation. Degenerative changes of the spine. Attempt of l umbarization of S1. DISK SPACES: Narrowing of the disc L1-L2 and L5-S1. SOFT TISSUES: Normal. IMPRESSION: No acute osseous abnormality lumbar spine. Reviewed, dictated and finalized at location A.
--- OUTSIDE RECORDS SUMMARY | 2024-05-18 12:04 | XMS_ITS ---
Author Organization [facility] Address [address] [place], [place] [id number] Care Team Providers Care Circuit Breaker Supervisor Name Role Phone Hui, Mikey Unavailable Unavailable SHOLA LIVINGSTON Unavailable [phone] REASON FOR VISIT *General care Encounters Encounter Location Date Provider Diagnosis [facility] [place] [address] [place], [place] [id number] 07/04/2023 SHOLA LIVINGSTON Plan Of Treatment No Information Progress Notes * Kyle HERNANDEZDOB: 8 (74 yo F)Acc No.[id number]:07/04/2023 Patient: Moody KOCHmerari Provider: Sukumar Livingston DPM :1950 A ge:73 Y S ex:Female Date:07/04/2023 Address:[address] , [address], [facility] Subjective: * Chief Complaints: * 1 . *General care. * Medical History: Objective: * Vitals: Assessment: Plan: * Treatment: * Billing Information: * Visit Code: * Procedure Codes: * Electronic signature of SHOLA LIVINGSTON DPM on 05/18/2024 at 12:04 PM CDT Sign off status: Pending * Provider: Sukumar Livingston DPM Date: 07/04/2023 Generated for Raheem beebe/Osvaldo/eTransmitting on: 0 05/18/2024 12:04 PM CDT
--- OUTSIDE RECORDS SUMMARY | 2024-05-18 12:04 | XMS_ITS | Clinical Summary ---
Author Organization [facility] Address [address], [facility] [address] [place] [address] Phone Care Team Providers Care Heavy Coil Winder Name Role Phone Jose Haynes MD Primary Care Provider [phone] Jerman Maravilla DO Unavailable [phone] Allergies Active Allergy Reactions Criticality Noted [...] 36.9 C (98.4 F) 02/12/2016 2:40 PM SOCIAL MEDIA SPECIALIST Respiratory Rate 16 10/21/2016 3:15 PM CDT [...] management HM COLONOSCOPY Routine 05/10/2015 11:49 AM SOCIAL MEDIA SPECIALIST from Last 3 Months or Most Recently Relevant to Health Maintenance Results * ANGELIC BONE DENSITOMETRY AXIAL SKELETON (11/23/2016) Anatomical Region Laterality Modality BODY N/A Other Charu Van KILN FIREMAN, HOSPITAL MEDICAL ASSISTANT IMG DEXA ORDERABL ES Final Result from Last 3 Months or Most Recently Relevant to Health Maintenance Insurance MEDICARE [place]ICAID [place] Care Teams Heavy Coil Winder Relationship Specialty Start Date End Date Jose Haynes MD [address] [place], [place] [id number] PCP - General Internal Medicine 04/10/15 Jerman Maravilla DO [address] [place] [address] Gastroenterology 04/10/15
--- OUTSIDE RECORDS SUMMARY | 2024-05-18 12:04 | XMS_ITS | Clinical Summary ---
Author Organization [facility] Address [facility] [place] [address] Care Team Providers Care Saturator Name Role Phone Unavailable Primary Care Provider [...]
--- OUTSIDE RECORDS SUMMARY | 2024-05-18 12:05 | XMS_ITS | Patient Health Record ---
Author Organization [facility] Address [address] [place], [place] [phone] Care Team Providers Care Tower Observer Name Role Phone Jackson Amesn Unavailable Unavailable YARASHOLA Unavailable [phone] Allergies No Known Allergies Reason For Referral [...] Fluticasone Furoate Active FreeStyle Getachew 14 Day [place] Active Plan Of Treatment No Information Insurance Providers Payer Name Payer Address Payer Phone Subscriber Number Group Number Insured Name Patient Relationship to Insured Coverage Start Date Coverage End Date [facility] [address] [address] [place] [address] [id number] Kyle Sanches Self - patient is the insured Medical (General) History Medical History History ICD Code acid reflux neuropathy stroke GERD Leg/Feet cramps Diabetic Thyroid Disease high blood pressure
--- OUTSIDE RECORDS SUMMARY | 2024-05-18 12:05 | XMS_ITS ---
Author Organization [facility] Address [address] [place], [place] [phone] Care Team Providers Care Oil And Gas Drafter Name Role Phone Hiu, Alan Unavailable Unavailable SHOLA LIVINGSTON Unavailable [phone] REASON FOR VISIT *General care, Patient presents [...] Levothyroxine Sodium Active FreeStyle Getachew 14 Day [place] Active Glucagon Active Nystatin Active Magnesium Active Metoclopramide HCl A ctive Lidocaine Active Loratadine Active Omeprazole Active Pregabalin Active Pravastatin Sodium A ctive Vital Signs Height 62 in 02/14/2023 Weight 150 lbs 02/14/2023 BMI 27.43 kg/m2 02/14/2023 Height-cm 157.48 cm 02/14/2023 Weight-kg 68.04 kg 02/14/2023 Encounters Encounter Location Date Provider Diagnosis [facility] [place] [address] [place], [place] [phone] 02/14/2023 SHOLA LIVINGSTON Tinea unguium B35.1 ; [...] * Kyle HERNANDEZDOB: 8 (73 yo F)Acc No.[id number]:02/14/2023 Patient: Kyle KOCH Provider: Sukumar Livingston DPM :1950 A ge:73 Y S ex:Female Date:02/14/2023 Address:[address] [place] [address] [address] , [address] [place], [place] [id number] Subjective: * Chief Complaints: * 1 . [...] Glucagon , Taking FreeStyle Getachew 14 Day [place] , Taking Fluticasone Furoate , Taking Diphenoxylate-Atropine [...] Edema: N o edema bilateral. N eurologic: Kamiah-Weinstin 5.07 monofilament a bsent sensorium to midfoot [...] develop.) * Billing Information: * Visit Code: 02232 Office Visit, Est Pt., Level 3. * Procedure Codes: * Sign off status: Completed true * Provider: Sukumar Livingston DPM Date: 04/17/2022 Generated for Raheem beebe/Osvaldo/José Miguel on: 0 05/18/2024 12:04 PM CDT History and Physical Notes * HPI (History [...] but no open wound or ulcer Neurologic Kamiah-Weinstin 5.07 monofilamen t absent sensorium to midfoot [...]
--- OUTSIDE RECORDS SUMMARY | 2024-05-18 12:05 | XMS_ITS ---
Author Organization [facility] Address [address] [facility] [address] [place], [place] [phone] Care Team Providers Care Meat Cutting Teacher Name Role Phone HuiJacksonn Unavailable Unavailable SHOLA LIVINGSTON Unavailable [phone] REASON FOR VISIT Patient presents for at-risk [...] Active Lidocaine Active FreeStyle Getachew 14 Day [place] Active Loratadine Active Magnesium Active Metoclopramide HCl A ctive Vital Signs Height 62 in 04/04/2023 Weight 150 lbs 04/04/2023 BMI 27.43 kg/m2 04/04/2023 Height-cm 157.48 cm 04/04/2023 Weight-kg 68.04 kg 04/04/2023 Encounters Encounter Location Date Provider Diagnosis [facility] [place] [address] [place], [place] [phone] 04/04/2023 SHOLA LIVINGSTON Tinea unguium B35.1 ; [...] * Kyle HERNANDEZDOB: 8 (73 yo F)Acc No.[id number]:04/04/2023 Patient: Kyle KOCH Provider: Sukumar Livingston DPM :1950 A ge:73 Y S ex:Female Date:04/04/2023 Address:[address] [place] [address] [address] [facility] , [address] Subjective: * Chief Complaints: * 1 [...] Glucagon , Taking FreeStyle Getachew 14 Day [place] , Taking Fluticasone Furoate , Taking Diphenoxylate-Atropine [...] Edema: N o edema bilateral. N eurologic: [place]-Weinstin 5.07 monofilament a bsent sensorium to midfoot [...] develop.) * Billing Information: * Visit Code: 42812 Office Visit, Est Pt., Level 3. * [...] but no open wound or ulcer Neurologic Mellwood-Weinstin 5.07 monofilamen t absent sensorium to midfoot [...]
== END 2024-05-18 10:52 | disposition home or self-care (01) ==
PROVIDERS: PCP Nurse Practitioner; Visit Provider Nurse Practitioner
DX: M54.42 Lumbago with sciatica, left side (principal); G89.29 Other chronic pain
CPT/HCPCS: 72100

== ENCOUNTER 2024-05-24 09:07 | Outpatient (CLI) | payer MEDICARE, MEDICAID, SELFPAY ==
--- NOTE | ~2024-05-24 | MR_ITS ---
Procedure: MR lumbar spine wo con Ordering provider: Chalino Mora APRN History: . M54.42 - Lumbago with sciatica, left side . Comparison: August 18, 2008 Technique: MRI thoracic spine without contrast. FINDINGS: SPINAL CORD: Normal. The cord ends at the level of L1-L2. VERTEBRAL BODIES: Normal height and alignment. No compression fracture. Normal marrow signal. Hemangi garima is seen in L5. DISK SPACES: Normal. STENOSIS: None. T12-L1: Normal. L1-L2: Normal. L2-L3: Mild diffuse disc bulge. L3-L4: Diffuse disc bulge with mild narrowing of the foramina. L4-L5: Moderate spinal canal stenosis with diffuse disc bulge and thickening of the ligamenta flava. L5-S1: Diffuse disc bulge. PARASPINOUS SOFT TISSUES: Normal. IMPRESSION: No compression fracture. Moderate spinal canal stenosis at the level of L4-L5. No definite root compression seen. Reviewed, dictated and finalized at location A. IMPRESSION: No compression fracture. Moderate spinal canal stenosis at the level of L4-L5. No definite root compress ion seen.
--- OUTSIDE RECORDS SUMMARY | 2024-05-24 09:39 | XMS_ITS | Clinical Summary ---
Author Organization [facility] Address [address] [place] [address] Care Team Providers Care Guide Dog Mobility Instructor Name Role Phone Unavailable Primary Care Provider [...] Due Date Last Done Comments Hepatitis C 01/05/1966 DTaP, Tdap and Td Vaccines ( 1 - Tdap) 01/05/1967 Zoster Vaccines (1 of 2) 01/05/1998 Dexa Scan (General) 01/05/2013 Pneumococcal Vaccine: 65+ Ye ars (1 of 1 - PCV) 01/05/2013 RSV Immunization or 60+ Years (1 - 1-dose 75+ series) 01/05/2023 COVID-19 Vaccine ( - 2023-2 5 season) 2023 Influenza Adult (#1) 2023 [...]
--- OUTSIDE RECORDS SUMMARY | 2024-05-24 09:39 | XMS_ITS | Clinical Summary ---
Author Organization [facility] Address [address], [facility] [address] [place] [address] Phone Care Team Providers Care Route Delivery Driver Name Role Phone Jose Haynes MD Primary Care Provider Jerman Maravilla DO Unavailable Allergies Active Allergy Reactions Criticality Noted Date [...] 36.9 C (98.4 F) 02/12/2016 2:40 PM KEELER POLYGRAPH OPERATOR Respiratory Rate 16 10/21/2016 3:15 PM CDT [...] management HM COLONOSCOPY Routine 05/10/2015 11:49 AM KEELER POLYGRAPH OPERATOR from Last 3 Months or Most Recently Relevant to Health Maintenance Results * ANGELIC BONE DENSITOMETRY AXIAL SKELETON (11/23/2016) Anatomical Region Laterality Modality BODY N/A Other Charu Van NETWORK OPERATIONS ANALYST, TANK CLEANING SUPERVISOR IMG DEXA ORDERABL ES Final Result from Last 3 Months or Most Recently Relevant to Health Maintenance Insurance MEDICARE MEDICAID [place] Care Teams Route Delivery Driver Relationship Specialty Start Date End Date Jose Haynes MD [address] [place], [place] [id number] PCP - General Internal Medicine 04/10/15 Jerman Maravilla DO [address] [place] [address] Gastroenterology 04/10/15
== END 2024-05-24 09:08 | disposition home or self-care (01) ==
PROVIDERS: PCP Nurse Practitioner; Visit Provider Nurse Practitioner
DX: M48.061 Spinal stenosis, lumbar region without neurogenic claudication (principal); M54.42 Lumbago with sciatica, left side; G89.29 Other chronic pain; M79.605 Pain in left leg
CPT/HCPCS: 72148

== ENCOUNTER 2024-07-26 07:21 | Outpatient (CLI) | payer MEDICARE, MEDICAID, SELFPAY ==
--- OUTSIDE RECORDS SUMMARY | 2024-07-26 07:26 | XMS_ITS | Patient Health Record ---
Author Organization [facility] Address [address] [place], [place] [phone] Care Team Providers Care Side Framer Name Role Phone Jackson Amesn Unavailable Unavailable Allergies No Known Allergies Reason For Referral [...] Fluticasone Furoate Active FreeStyle Getachew 14 Day [place] Active Plan Of Treatment No Information Insurance Providers Payer Name Payer Address Payer Phone Subscriber Number Group Number Insured Name Patient Relationship to Insured Coverage Start Date Coverage End Date [facility] [address] [address] [place] [id number] Kyle Sanches Self - patient is the insured Medical (General) History Medical History History ICD Code acid reflux neuropathy stroke GERD Leg/Feet cramps Diabetic Thyroid Disease high blood pressure
--- OUTSIDE RECORDS SUMMARY | 2024-07-26 07:26 | XMS_ITS | Clinical Summary ---
Author Organization [facility] Address [address], [facility] [address] [place] [address] Phone Care Team Providers Care Digital Media Representative Name Role Phone Jose Haynes MD Primary Care Provider [phone] Jerman Maravilla DO Unavailable [phone] Allergies Active Allergy Reactions Criticality Noted Date [...] 36.9 C (98.4 F) 02/12/2016 2:40 PM NUTRITION COORDINATOR Respiratory Rate 16 10/21/2016 3:15 PM CDT Oxygen Saturation 90% 10/21/2016 3:15 PM CDT Inhaled Oxygen Concentration - - Weight 90.3 kg (199 lb) 10/21/2016 3:15 PM CDT Height 157.5 cm (5' 2) 10/21/2016 3:15 PM CDT Body Mass Index 36.4 10/21/2016 3:15 PM CDT Plan of Treatment Health Maintenance Due Date Last Done Comments Hepatitis C Virus (HCV) Screening 1950 Zoster Immunization (1 of 2) 01/05/1998 DEXA Bone Density 11/23/2018 11/23/2016 Respiratory Syncytial Virus (RSV) Immunization (Adult) (1 - 1-dose 75+ series) 01/05/2023 Influenza Immunization (#1) 10/30/202311/28, 11/22/2018, 11/23/2017, Additional history exists SARS-COV-2 Immunization (4 - 2024-25 season) 2023 01/08/2021, 04/30/2020, 04/09/2020 DTaP/Tdap/Td Immunization [...] management HM COLONOSCOPY Routine 05/10/2015 11:49 AM NUTRITION COORDINATOR from Last 3 Months or Most Recently Relevant to Health Maintenance Results * ANGELIC BONE DENSITOMETRY AXIAL SKELETON (11/23/2016) Anatomical Region Laterality Modality BODY N/A Other Charu Van APRN, INDUSTRIAL RELATIONS SPECIALIST IMG DEXA ORDERABL ES Final Result from Last 3 Months or Most Recently Relevant to Health Maintenance Insurance MEDICARE [place]ICAID [place] Care Teams Digital Media Representative Relationship Specialty Start Date End Date Jose Haynes MD PCP - General Internal Medicine 04/10/15 Jerman Maravilla DO Gastroenterology 04/10/15
--- OUTSIDE RECORDS SUMMARY | 2024-07-26 07:26 | XMS_ITS ---
Author Organization [facility] Address [address] [facility] [address] [place], [place] [phone] Care Team Providers Care Launderer Hand Name Role Phone Hui, Mikey Unavailable Unavailable SHOLA LIVINGSTON Unavailable [phone] REASON FOR VISIT *General care Encounters Encounter Location Date Provider Diagnosis [facility] [place] [address] [place], [place] [phone] 07/04/2023 SHOLA LIVINGSTON Plan Of Treatment No Information Progress Notes * Kyle HERNANDEZDOB: 8 (74 yo F)Acc No.[id number]:07/04/2023 Patient: Moody KOCHmerari Provider: Sukumar Livingston DPM :1950 A ge:73 Y S ex:Female Date:07/04/2023 Address:[address] , [address], [facility] Subjective: * Chief Complaints: * 1 . *General care. * Medical History: Objective: * Vitals: Assessment: Plan: * Treatment: * Billing Information: * Visit Code: * Procedure Codes: * Electronic signature of SHOLA LIVINGSTON DPM on 07/26/2024 at 07:25 AM CDT Sign off status: Pending * Provider: Sukumar Livingston DPM Date: 07/04/2023 Generated for Raheem beebe/Osvaldo/eTransmitting on: 07/26/2024 07:25 AM CDT
[2024-07-26 08:39] LABS: Alanine Aminotransferase 33 U/L (6-35); Albumin Level 4.3 g/dL (3.5-5.1); Alkaline Phosphatase 70 U/L (38-126); Anion Gap 5 mmol/L (4-12); Aspartate Amino Transferase 37 U/L (14-36); Bilirubin,Total 0.6 mg/dL (0.2-1.3); Blood Urea Nitrogen 17 mg/dL (7-17); Calcium 9.7 mg/dL (8.4-10.2); Carbon Dioxide 32 mmol/L (22-30); Chloride 101 mmol/L (98-107); Cholesterol 230 mg/dL (0-200); Estimated Glomerular Filt Rate > 60; Glucose 187 mg/dL (65-110); HDL Direct 108 mg/dL; Potassium 4.2 mmol/L (3.4-5.0); Sodium 138 mmol/L (137-145); Triglycerides 91 mg/dL (<150)
[2024-07-26 08:50] LABS: LDL Cholesterol Direct 72 mg/dL
[2024-07-26 10:21] LABS: Free T4 Free Thyroxine 0.92 ng/dL (0.78-2.19)
== END 2024-07-26 07:22 | disposition home or self-care (01) ==
PROVIDERS: PCP Nurse Practitioner; Visit Provider Internal Medicine Endocrinology, Diabetes & Metabolism
DX: E03.9 Hypothyroidism, unspecified (principal); E78.5 Hyperlipidemia, unspecified; R74.8 Abnormal levels of other serum enzymes
CPT/HCPCS: 36415; 80053; 80061; 84439; 84443

== ENCOUNTER 2024-08-27 07:22 | Outpatient (CLI) | payer MEDICARE, OTHER, SELFPAY ==
[2024-08-27 08:40] LABS: Free T4 Free Thyroxine. 1.28 ng/dL (0.78-2.19)
== END 2024-08-27 07:23 | disposition home or self-care (01) ==
PROVIDERS: PCP Nurse Practitioner; Visit Provider Internal Medicine Endocrinology, Diabetes & Metabolism
DX: E03.9 Hypothyroidism, unspecified (principal)
CPT/HCPCS: 36415; 84439; 84443